=== PATIENT | male | born 1950 | race Caucasian/White ===

== ENCOUNTER 2017-11-01 23:36 | Inpatient (IN) | payer MEDICARE, OTHER ==
[~2017-11-01] VITALS: Ht 172.7 cm; Wt 81.6 kg
[2017-11-01 23:55] VITALS: BP 139/79
[2017-11-02] VITALS (8 sets, daily range): BP systolic 127–158; BP diastolic 76–94
--- NOTE | 2017-11-02 00:22 | Emergency Room Report ---
History of Present Illness General Chief Complaint: Back Pain-No Injury Source: Patient Present Illness HPI Patient presents with complaints of mid back pain patient reports previous injury with fractures of his lower back when he was 20 the [facility] his work[facility] at their facility Patient is here with friend She reports that she so the patient having a seizure activity Prior to arrival patient has had seizures in the past however does not take any medications Currently complains of mid pain Denies any vomiting or diarrhea Denies any abdominal pain denies any focal weakness pain is 8/10 Allergies: Coded Allergies: No Known Allergies (Unverified , 11/01/17) Patient History Past Medical History: see triage record Pertinent Family History: none Reviewed Nursing Documentation: PMH: Agreed, PSxH: Agreed Nursing Documentation-PMH Hx Hypertension: Yes Hx Diabetes: Yes Review of Systems All Other Systems: negative except mentioned in HPI Physical Exam Vital Signs Date Time Temp Pulse Resp B/P (MAP) Pulse Ox O2 Delivery O2 Flow Rate FiO2 11/01/17 23:32 97.0 115 16 139/79 99 Room Air 97.0 Sp02 EP Interpretation: reviewed, normal General Appearance: mild distress - In acute pain Head: normocephalic, atraumatic Eyes: bilateral eye PERRL, bilateral eye EOMI ENT: hearing grossly normal, normal pharynx, TMs + canals normal, uvula midline Neck: full range of motion, supple, no meningismus, no bony tend Respiratory: lungs clear, normal breath sounds, no rhonchi, no respiratory distress, no retraction, no accessory muscle use Cardiovascular #1: normal peripheral pulses, regular rate, rhythm, no edema, no gallop, no JVD, no murmur Gastrointestinal: normal bowel sounds, non tender, soft, no mass, no organomegaly, non-distended, no guarding, no hernia, no pulsatile mass, no rebound Genitourinary: no CVA tenderness Musculoskeletal: other - Tender paraspinal area T6-7-8 Neurologic: oriented x3, responsive, medical record assistant III-XII nml as tested, motor strength/ tone normal, sensory intact Psychiatric: mood/affect normal Skin: normal color, no rash, warm/dry, palpation normal Lymphatic: normal inspection, no adenopathy Medical Decision Making Diagnostic Impression: Primary Impression: multi level thoracic fracture ER Course Patient had multiple differentials upon arrival Patient is a poor historian At this time I obtained history of the patient having a seizure activity prior to arrival however the nurse or the triage did not know at a later time I was told by a nurse at the patient had recent fall onto his back several days ago however I was not told about that during the history In any event the workup has revealed multiple levels of thoracic spine fracture possible chronic however acute is indeterminate Patient reports previous history of lumbar spine fracture however he was not aware of any thoracic spine fractures given the poor history and the findings Given the patient's discomfort he was requested for admission Labs Test 11/02/17 00:30 White Blood Count 10.5 K/UL (4.8-10.8) Red Blood Count 3.88 M/UL (4.70-6.10) Hemoglobin 14.0 G/DL (14.2-18.0) Hematocrit 38.6 % (42.0-52.0) Mean Corpuscular Volume 99 FL (80-99) Mean Corpuscular Hemoglobin 36.0 PG (27.0-31.0) Mean Corpuscular Hemoglobin Concent 36.2 G/DL (32.0-36.0) Red Cell Distribution Width 11.1 % (11.6-14.8) Platelet Count 193 K/UL (150-450) Mean Platelet Volume 6.5 FL (6.5-10.1) Neutrophils (%) (Auto) 80.5 % (45.0-75.0) Lymphocytes (%) (Auto) 12.6 % (20.0-45.0) Monocytes (%) (Auto) 5.0 % (1.0-10.0) Eosinophils (%) (Auto) 0.7 % (0.0-3.0) Basophils (%) (Auto) 1.3 % (0.0-2.0) Sodium Level 133 MMOL/L (136-145) Potassium Level 3.7 MMOL/L (3.5-5.1) Chloride Level 99 MMOL/L (98-107) Carbon Dioxide Level 22 MMOL/L (21-32) Anion Gap 12 mmol/L (5-15) Blood Urea Nitrogen 16 mg/dL (7-18) Creatinine 1.1 MG/DL (0.55-1.30) Estimat Glomerular Filtration Rate > 60 mL/min (>60) Glucose Level 174 MG/DL (74-106) Calcium Level 8.4 MG/DL (8.5-10.1) Total Bilirubin 1.1 MG/DL (0.2-1.0) Direct Bilirubin 0.7 MG/DL (0.0-0.3) Aspartate Amino Transf (AST/SGOT) 247 U/L (15-37) Alanine Aminotransferase (ALT/SGPT) 147 U/L (12-78) Alkaline Phosphatase 93 U/L (46-116) Total Creatine Kinase 247 U/L (26-308) Total Protein 6.7 G/DL (6.4-8.2) Albumin 3.1 G/DL (3.4-5.0) Globulin 3.6 g/dL Albumin/Globulin Ratio 0.9 (1.0-2.7) Lipase 405 U/L (73-393) Rhythm Strip Diag. Results EP Interpretation: yes Rate: 88 Rhythm: NSR, no PVC's, no ectopy CT/MRI/US Diagnostic Results CT/MRI/US Diagnostic Results : Impression CT thoracic spine: Moderate compression T9 and T7 T6-T4 without 25-30% loss of height no significant retropulsion age indeterminate possibly chronic correlated clinically old rib fractures Last Vital Signs Date Time Temp Pulse Resp B/P (MAP) Pulse Ox O2 Delivery O2 Flow Rate FiO2 18 23:32 97.0 115 16 139/79 99 Room Air 97.0 Status: improved Disposition: ADMITTED INPATIENT Condition: Serious Referrals: NON PHYSICIAN (PCP) PARISH VIRGEN D.O. Nov 02, 2017 00:22
[2017-11-02] MEDS ORDERED: Solu-MEDROL 125mg Inj IVP ONE (00:30)
[2017-11-02] MEDS ORDERED: Ketorolac 30mg Inj IV ONE (00:30)
[2017-11-02] MEDS ORDERED: Morphine Sulfate 4mg/ml Inj IVP ONE (00:30)
[2017-11-02 00:51] LABS: BASOPHILS % (AUTO) 1.3 % (0.0-2.0); EOSINOPHILS % (AUTO) 0.7 % (0.0-3.0); HEMATOCRIT 38.6 % (42.0-52.0); LYMPHOCYTES % (AUTO) 12.6 % (20.0-45.0); MEAN CORPUSCULAR VOLUME 99 FL (80-99); NEUTROPHILS % (AUTO) 80.5 % (45.0-75.0); PLATELET COUNT 193 K/UL (150-450); RED BLOOD COUNT 3.88 M/UL (4.70-6.10); RED CELL DISTRIBUTION WIDTH 11.1 % (11.6-14.8); WHITE BLOOD COUNT 10.5 K/UL (4.8-10.8)
[2017-11-02 01:04] LABS: ANION GAP 12 mmol/L (5-15); BLOOD UREA NITROGEN 16 mg/dL (7-18); CALCIUM 8.4 MG/DL (8.5-10.1); CARBON DIOXIDE 22 MMOL/L (21-32); CHLORIDE 99 MMOL/L (98-107); CREATININE 1.1 MG/DL (0.55-1.30); POTASSIUM 3.7 MMOL/L (3.5-5.1); SODIUM 133 MMOL/L (136-145)
[2017-11-02 01:14] LABS: ALANINE AMINOTRANSFERASE 147 U/L (12-78); ALBUMIN 3.1 G/DL (3.4-5.0); ALBUMIN/GLOBULIN RATIO 0.9 (1.0-2.7); ALKALINE PHOSPHATASE 93 U/L (46-116); ASPARTATE AMINO TRANSFERASE 247 U/L (15-37); BILIRUBIN,TOTAL 1.1 MG/DL (0.2-1.0); CREATINE KINASE 247 U/L (26-308)
[2017-11-02 01:58] LABS: BILIRUBIN,DIRECT 0.7 MG/DL (0.0-0.3)
[2017-11-02] MEDS ORDERED: Mylanta II UD 30ml ORAL PRN (05:30)
[2017-11-02] MEDS ORDERED: Morphine Sulfate 4mg/ml Inj IVP PRN (05:30)
[2017-11-02] MEDS ORDERED: Miralax 17gm pkt ORAL PRN (05:30)
[2017-11-02] MEDS ORDERED: LORazepam Inj 2mg/ml 1ml IV PRN (05:30)
[2017-11-02] MEDS ORDERED: Zolpidem 5mg tab ORAL PRN (05:30)
[2017-11-02] MEDS ORDERED: UNOBMED (05:36)
[2017-11-02] MEDS: Morphine Sulfate 2mg/ml Inj IVP PRN ×4 (07:56→23:10)
--- NOTE | 2017-11-02 09:11 | Diagnostic Imaging Report ---
Indication: Back pain. Technique: Continuous helical transaxial imaging of the thoracic spine was obtained from the lung bases to the pubic symphysis. No IV contrast was administered. Coronal 2-D reformats were also obtained. Study obtained in a Siemens sensation [address] Total Dose length Product (DLP): 1495.[address] Dose Index Volume (CTDIvol): 31.62 mGy Comparison: None Findings: The bones are osteopenic. There is loss of height of several of the last lumbar vertebral bodies including T9, T7, T4. Loss of height is around 30%. Alignment is normal. There is no retropulsion. Facets are unremarkable. There are posterior reticular densities, subpleural fibrosis and bleb formation. Dense surgical clip noted in the left upper quadrant of the abdomen. IMPRESSION: Compression fracture deformities as described above. These are probably old. MR is more sensitive for acuity. Interstitial fibrosis. Atherosclerotic disease The CT scanner at [facility] is accredited by the [employer] and the scans are performed using dose optimization techniques as appropriate to a performed exam including Automatic Exposure control.
[2017-11-02] MEDS: Heparin 5000 units/ml inj SUBQ SCH ×2 (09:33→23:03)
[2017-11-02] MEDS: NovoLOG Insulin Flexpen SUBQ SCH ×3 (13:03→23:05)
[2017-11-02] MEDS ORDERED: ASPIR 8181 MG ORAL (13:04)
--- NOTE | 2017-11-02 13:30 | History and Physical ---
History of Present Illness General Date patient seen: Nov 02, 2017 Reason for Hospitalization: Back Pain-No Injury Present Illness HPI 67 year old male presented with complaints of mid back pain. He reports previous injury with fractures of his lower back Prior to arrival patient has had seizures, in the past he had seizures as well , but does not take any medications. Pt is admitted for intractable seizures and back pain. Allergies: Coded Allergies: No Known Allergies (Unverified , 11/01/17) Medication History Scheduled Aripiprazole* (Abilify*), 20 MG ORAL DAILY, (Reported) Aspirin* (Aspir 81*), 81 MG ORAL DAILY, (Reported) Atorvastatin Calcium* (Atorvastatin Calcium*), 40 MG ORAL BEDTIME, (Reported) Cholecalciferol (Vitamin D3)* (Vitamin D*), 1,000 UNIT ORAL DAILY, (Reported) Lisinopril (Lisinopril*), 20 MG ORAL DAILY, (Reported) Metformin Hcl* (Metformin Hcl*), 1,000 MG ORAL DAILY, (Reported) Multivitamins* (Multivitamins*), 1 TAB ORAL DAILY, (Reported) Tamsulosin Hcl (Tamsulosin Hcl*), 0.4 MG ORAL BEDTIME, (Reported) [androgel 1.62 %], 1.62 % TP DAILY, (Reported) Scheduled PRN Loratadine (Loratadine), 10 MG PO DAILY PRN for sneezing, (Reported) Miscellaneous Medications Unable to Obtain Medications (Unable To Obtain Meds), (Reported) Patient History Healthcare decision maker Resuscitation status Advanced Directive on File Past Medical/Surgical History Past Medical/Surgical History: (1) Seizure disorder Review of Systems All Other Systems: negative except mentioned in HPI Physical Exam General Appearance: WD/WN Lines, tubes and drains: peripheral HEENT: normocephalic, atraumatic Neck: non-tender, normal alignment Respiratory/Chest: chest wall non-tender, lungs clear Cardiovascular/Chest: normal peripheral pulses, normal rate Abdomen: normal bowel sounds, non tender Genitourinary/Rectal: normal genital exam, normal rectal exam Extremities: normal range of motion, non-tender Skin Exam: normal pigmentation, cyanotic Neurologic: 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 II-XII grossly normal Last 24 Hour Vital Signs Date Time Temp Pulse Resp B/P (MAP) Pulse Ox O2 Delivery O2 Flow Rate FiO2 11/02/17 12:00 97.1 105 20 158/89 98 97.1 11/02/17 08:00 97.6 106 18 151/94 98 97.6 11/02/17 06:50 97.0 96 20 152/80 95 97.0 11/02/17 06:30 97.0 107 22 144/77 98 Room Air 206.6 11/02/17 05:36 107 22 144/77 98 Room Air 11/02/17 03:49 103 23 146/80 98 Room Air 11/02/17 01:49 104 17 138/76 97 Room Air 11/02/17 00:39 97.0 11/02/17 00:38 97.0 11/01/17 23:55 97.0 115 16 139/79 99 Room Air 97.0 11/01/17 23:32 97.0 115 16 139/79 99 Room Air 97.0 Intake and Output 11/01/17 11/02/17 19:00 07:00 Intake Total 0 ml Output Total 600 ml Balance -600 ml Intake Oral 0 ml Output Urine Total 600 ml Laboratory Tests Test 11/02/17 00:30 White Blood Count 10.5 K/UL (4.8-10.8) Red Blood Count 3.88 M/UL (4.70-6.10) L Hemoglobin 14.0 G/DL (14.2-18.0) L Hematocrit 38.6 % (42.0-52.0) L Mean Corpuscular Volume 99 FL (80-99) Mean Corpuscular Hemoglobin 36.0 PG (27.0-31.0) H Mean Corpuscular Hemoglobin Concent 36.2 G/DL (32.0-36.0) H Red Cell Distribution Width 11.1 % (11.6-14.8) L Platelet Count 193 K/UL (150-450) Mean Platelet Volume 6.5 FL (6.5-10.1) Neutrophils (%) (Auto) 80.5 % (45.0-75.0) H Lymphocytes (%) (Auto) 12.6 % (20.0-45.0) L Monocytes (%) (Auto) 5.0 % (1.0-10.0) Eosinophils (%) (Auto) 0.7 % (0.0-3.0) Basophils (%) (Auto) 1.3 % (0.0-2.0) Sodium Level 133 MMOL/L (136-145) L Potassium Level 3.7 MMOL/L (3.5-5.1) Chloride Level 99 MMOL/L (98-107) Carbon Dioxide Level 22 MMOL/L (21-32) Anion Gap 12 mmol/L (5-15) Blood Urea Nitrogen 16 mg/dL (7-18) Creatinine 1.1 MG/DL (0.55-1.30) Estimat Glomerular Filtration Rate > 60 mL/min (>60) Glucose Level 174 MG/DL (74-106) H Calcium Level 8.4 MG/DL (8.5-10.1) L Total Bilirubin 1.1 MG/DL (0.2-1.0) H Direct Bilirubin 0.7 MG/DL (0.0-0.3) H Aspartate Amino Transf (AST/SGOT) 247 U/L (15-37) H Alanine Aminotransferase (ALT/SGPT) 147 U/L (12-78) H Alkaline Phosphatase 93 U/L (46-116) Total Creatine Kinase 247 U/L (26-308) Total Protein 6.7 G/DL (6.4-8.2) Albumin 3.1 G/DL (3.4-5.0) L Globulin 3.6 g/dL Albumin/Globulin Ratio 0.9 (1.0-2.7) L Lipase 405 U/L (73-393) H Height (Feet): 5 Height (Inches): 8.00 Weight (Pounds): 180 Medications Current Medications Medications (Trade) Dose Ordered Sig/Ceasar Route PRN Reason Start Time Stop Time Status Last Admin Dose Admin Acetaminophen (Tylenol) 650 mg Q4H PRN ORAL fever 11/02/17 05:30 12/02/17 05:29 Al Hydroxide/Mg Hydroxide (Mylanta II) 30 ml Q6H PRN ORAL dyspepsia 11/02/17 05:30 12/02/17 05:29 Dextrose (Dextrose 50%) STAT PRN IV Hypoglycemia 11/02/17 05:30 12/02/17 05:29 Heparin Sodium (Porcine) (Heparin 5000 units/ml) 5,000 units EVERY 12 HOURS SUBQ 11/02/17 09:00 12/02/17 08:59 11/02/17 09:33 Insulin Aspart (NovoLOG) BEFORE MEALS AND HS SUBQ 11/02/17 16:30 12/02/17 16:29 11/02/17 13:03 Lorazepam (Ativan 2mg/ml 1ml) 0.5 mg Q4H PRN IV For Anxiety 11/02/17 05:30 11/09/17 05:29 Morphine Sulfate (Morphine Sulfate) 2 mg Q4H PRN IVP For Pain 4-6 11/02/17 05:30 11/09/17 05:29 11/02/17 11:58 Morphine Sulfate (Morphine Sulfate) 4 mg Q4H PRN IVP For Pain 7-10 11/02/17 05:30 11/09/17 05:29 Ondansetron HCl (Zofran) 4 mg Q6H PRN IVP Nausea & Vomiting 11/02/17 05:30 12/02/17 05:29 Polyethylene Glycol (Miralax) 17 gm HSPRN PRN ORAL Constipation 11/02/17 05:30 12/02/17 05:29 Zolpidem Tartrate (Ambien) 5 mg HSPRN PRN ORAL Insomnia 11/02/17 05:30 11/09/17 05:29 Assessment/Plan Problem List: (1) Seizure disorder ICD Codes: G40.909 - Epilepsy, unspecified, not intractable, without status epilepticus SNOMED: 739028680 (2) Intractable back pain ICD Codes: M54.9 - Dorsalgia, unspecified SNOMED: 796291514 Assessment/Plan neuro evaluation pain management dvt prophylaxis symptomatic treatment. CEDRICK ALVES Nov 02, 2017 13:30
--- NOTE | 2017-11-02 13:55 | Neurology Progress Note ---
Objective Physical Exam Last Vital Signs Date Time Temp Pulse Resp B/P (MAP) Pulse Ox O2 Delivery O2 Flow Rate FiO2 11/02/17 12:00 97.1 105 20 158/89 98 97.1 11/02/17 06:30 Room Air Laboratory Tests Test 11/02/17 00:30 White Blood Count 10.5 K/UL (4.8-10.8) Red Blood Count 3.88 M/UL (4.70-6.10) L Hemoglobin 14.0 G/DL (14.2-18.0) L Hematocrit 38.6 % (42.0-52.0) L Mean Corpuscular Volume 99 FL (80-99) Mean Corpuscular Hemoglobin 36.0 PG (27.0-31.0) H Mean Corpuscular Hemoglobin Concent 36.2 G/DL (32.0-36.0) H Red Cell Distribution Width 11.1 % (11.6-14.8) L Platelet Count 193 K/UL (150-450) Mean Platelet Volume 6.5 FL (6.5-10.1) Neutrophils (%) (Auto) 80.5 % (45.0-75.0) H Lymphocytes (%) (Auto) 12.6 % (20.0-45.0) L Monocytes (%) (Auto) 5.0 % (1.0-10.0) Eosinophils (%) (Auto) 0.7 % (0.0-3.0) Basophils (%) (Auto) 1.3 % (0.0-2.0) Sodium Level 133 MMOL/L (136-145) L Potassium Level 3.7 MMOL/L (3.5-5.1) Chloride Level 99 MMOL/L (98-107) Carbon Dioxide Level 22 MMOL/L (21-32) Anion Gap 12 mmol/L (5-15) Blood Urea Nitrogen 16 mg/dL (7-18) Creatinine 1.1 MG/DL (0.55-1.30) Estimat Glomerular Filtration Rate > 60 mL/min (>60) Glucose Level 174 MG/DL (74-106) H Calcium Level 8.4 MG/DL (8.5-10.1) L Total Bilirubin 1.1 MG/DL (0.2-1.0) H Direct Bilirubin 0.7 MG/DL (0.0-0.3) H Aspartate Amino Transf (AST/SGOT) 247 U/L (15-37) H Alanine Aminotransferase (ALT/SGPT) 147 U/L (12-78) H Alkaline Phosphatase 93 U/L (46-116) Total Creatine Kinase 247 U/L (26-308) Total Protein 6.7 G/DL (6.4-8.2) Albumin 3.1 G/DL (3.4-5.0) L Globulin 3.6 g/dL Albumin/Globulin Ratio 0.9 (1.0-2.7) L Lipase 405 U/L (73-393) H Impression/Recommendations Recommendations #[id number] WILEY CUETO Nov 02, 2017 13:55
[2017-11-02] MEDS ORDERED: VITAMIN D1000 UNI1 ORAL (15:25)
[2017-11-02] MEDS ORDERED: MULTIVITAMINS1 EAC2 ORAL (15:25)
[2017-11-02] MEDS ORDERED: METFORMIN HCL1000 M1 ORAL (15:25)
[2017-11-02] MEDS ORDERED: ABILIFY20 MG ORAL (15:25)
[2017-11-02] MEDS ORDERED: LORATADINE10 M3 PO (15:25)
[2017-11-02] MEDS ORDERED: ATORVASTATIN CA40 MG ORAL (15:25)
[2017-11-02] MEDS ORDERED: TAMSULOSIN HCL0.4 MG ORAL (15:25)
[2017-11-02] MEDS ORDERED: ANDROGEL 1.62% TP (15:25)
[2017-11-02] MEDS ORDERED: LISINOPRIL20 MG ORAL (15:25)
[2017-11-02] MEDS ORDERED: Pseudoephedrine 30mg tab ORAL PRN (15:30)
[2017-11-02] MEDS ORDERED: Benzonatate 100mg Perles ORAL PRN (15:30)
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
[2017-11-02] MEDS ORDERED: Norco 5mg/325mg tab ORAL PRN (18:15)
--- NOTE | 2017-11-02 19:42 | Consultation ---
History of Present Illness General Date patient seen: Nov 02, 2017 Chief Complaint: Present Illness Allergies: Coded Allergies: No Known Allergies (Unverified , 11/01/17) Medication History Scheduled Aripiprazole* (Abilify*), 20 MG ORAL DAILY, (Reported) Aspirin* (Aspir 81*), 81 MG ORAL DAILY, (Reported) Atorvastatin Calcium* (Atorvastatin Calcium*), 40 MG ORAL BEDTIME, (Reported) Cholecalciferol (Vitamin D3)* (Vitamin D*), 1,000 UNIT ORAL DAILY, (Reported) Lisinopril (Lisinopril*), 20 MG ORAL DAILY, (Reported) Metformin Hcl* (Metformin Hcl*), 1,000 MG ORAL DAILY, (Reported) Multivitamins* (Multivitamins*), 1 TAB ORAL DAILY, (Reported) Tamsulosin Hcl (Tamsulosin Hcl*), 0.4 MG ORAL BEDTIME, (Reported) [androgel 1.62 %], 1.62 % TP DAILY, (Reported) Scheduled PRN Loratadine (Loratadine), 10 MG PO DAILY PRN for sneezing, (Reported) Miscellaneous Medications Unable to Obtain Medications (Unable To Obtain Meds), (Reported) Patient History Healthcare decision maker Resuscitation status Advanced Directive on File Physical Exam Last 24 Hour Vital Signs Date Time Temp Pulse Resp B/P (MAP) Pulse Ox O2 Delivery O2 Flow Rate FiO2 11/02/17 17:26 97.6 11/02/17 16:00 97.6 98 18 135/76 98 97.6 11/02/17 12:00 97.1 105 20 158/89 98 97.1 11/02/17 08:00 97.6 106 18 151/94 98 97.6 11/02/17 06:50 97.0 96 20 152/80 95 97.0 11/02/17 06:30 97.0 107 22 144/77 98 Room Air 206.6 11/02/17 05:36 107 22 144/77 98 Room Air 11/02/17 03:49 103 23 146/80 98 Room Air 11/02/17 01:49 104 17 138/76 97 Room Air 11/02/17 00:39 97.0 11/02/17 00:38 97.0 11/01/17 23:55 97.0 115 16 139/79 99 Room Air 97.0 11/01/17 23:32 97.0 115 16 139/79 99 Room Air 97.0 Intake and Output 11/01/17 11/02/17 19:00 07:00 Intake Total 0 ml Output Total 600 ml Balance -600 ml Intake Oral 0 ml Output Urine Total 600 ml Laboratory Tests Test 11/02/17 00:30 White Blood Count 10.5 K/UL (4.8-10.8) Red Blood Count 3.88 M/UL (4.70-6.10) L Hemoglobin 14.0 G/DL (14.2-18.0) L Hematocrit 38.6 % (42.0-52.0) L Mean Corpuscular Volume 99 FL (80-99) Mean Corpuscular Hemoglobin 36.0 PG (27.0-31.0) H Mean Corpuscular Hemoglobin Concent 36.2 G/DL (32.0-36.0) H Red Cell Distribution Width 11.1 % (11.6-14.8) L Platelet Count 193 K/UL (150-450) Mean Platelet Volume 6.5 FL (6.5-10.1) Neutrophils (%) (Auto) 80.5 % (45.0-75.0) H Lymphocytes (%) (Auto) 12.6 % (20.0-45.0) L Monocytes (%) (Auto) 5.0 % (1.0-10.0) Eosinophils (%) (Auto) 0.7 % (0.0-3.0) Basophils (%) (Auto) 1.3 % (0.0-2.0) Sodium Level 133 MMOL/L (136-145) L Potassium Level 3.7 MMOL/L (3.5-5.1) Chloride Level 99 MMOL/L (98-107) Carbon Dioxide Level 22 MMOL/L (21-32) Anion Gap 12 mmol/L (5-15) Blood Urea Nitrogen 16 mg/dL (7-18) Creatinine 1.1 MG/DL (0.55-1.30) Estimat Glomerular Filtration Rate > 60 mL/min (>60) Glucose Level 174 MG/DL (74-106) H Calcium Level 8.4 MG/DL (8.5-10.1) L Total Bilirubin 1.1 MG/DL (0.2-1.0) H Direct Bilirubin 0.7 MG/DL (0.0-0.3) H Aspartate Amino Transf (AST/SGOT) 247 U/L (15-37) H Alanine Aminotransferase (ALT/SGPT) 147 U/L (12-78) H Alkaline Phosphatase 93 U/L (46-116) Total Creatine Kinase 247 U/L (26-308) Total Protein 6.7 G/DL (6.4-8.2) Albumin 3.1 G/DL (3.4-5.0) L Globulin 3.6 g/dL Albumin/Globulin Ratio 0.9 (1.0-2.7) L Lipase 405 U/L (73-393) H Height (Feet): 5 Height (Inches): 8.00 Weight (Pounds): 180 Medications Current Medications Medications (Trade) Dose Ordered Sig/Ceasar Route PRN Reason Start Time Stop Time Status Last Admin Dose Admin Acetaminophen (Tylenol) 650 mg Q4H PRN ORAL fever 11/02/17 05:30 12/02/17 05:29 Acetaminophen/ Hydrocodone Bitart ([place] 5/325) 1 tab Q4H PRN ORAL Moderate Pain (Pain Scale 4-6) 11/02/17 18:15 11/09/17 18:14 Al Hydroxide/Mg Hydroxide (Mylanta II) 30 ml Q6H PRN ORAL dyspepsia 11/02/17 05:30 12/02/17 05:29 Aripiprazole (Abilify) 20 mg DAILY ORAL 11/03/17 09:00 12/03/17 08:59 Aspirin (ASA) 81 mg DAILY ORAL 11/03/17 09:00 12/03/17 08:59 Atorvastatin Calcium (Lipitor) 40 mg BEDTIME ORAL 11/02/17 21:00 12/02/17 20:59 Benzonatate (Tessalon Perles) 100 mg Q8H PRN ORAL cough 11/02/17 15:30 12/02/17 15:29 Dextrose (Dextrose 50%) STAT PRN IV Hypoglycemia 11/02/17 05:30 12/02/17 05:29 Fexofenadine HCl (Carol) 60 mg BIDPRN PRN ORAL seasonal allergies 11/02/17 18:00 12/02/17 17:59 Gabapentin (Neurontin) 300 mg THREE TIMES A DAY ORAL 11/02/17 19:00 12/02/17 18:59 11/02/17 19:10 Heparin Sodium (Porcine) (Heparin 5000 units/ml) 5,000 units EVERY 12 HOURS SUBQ 11/02/17 09:00 12/02/17 08:59 11/02/17 09:33 Insulin Aspart (NovoLOG) BEFORE MEALS AND HS SUBQ 11/02/17 16:30 12/02/17 16:29 11/02/17 16:50 Levetiracetam (Keppra) 500 mg Q12HR ORAL 11/02/17 21:00 12/02/17 20:59 Lidocaine (Lidoderm 5% PATCH) 1 patch DAILY TDERMAL 11/03/17 09:00 12/03/17 08:59 Lisinopril (Prinivil) 20 mg DAILY ORAL 11/03/17 09:00 12/03/17 08:59 Lorazepam (Ativan 2mg/ml 1ml) 0.5 mg Q4H PRN IV For Anxiety 11/02/17 05:30 11/09/17 05:29 Morphine Sulfate (Morphine Sulfate) 2 mg Q4H PRN IVP Severe Pain (Scale 7-10) 11/02/17 18:30 11/09/17 18:29 Multivitamins (Multivitamins) 1 tab DAILY ORAL 11/03/17 09:00 12/03/17 08:59 Ondansetron HCl (Zofran) 4 mg Q6H PRN IVP Nausea & Vomiting 11/02/17 05:30 12/02/17 05:29 Polyethylene Glycol (Miralax) 17 gm HSPRN PRN ORAL Constipation 11/02/17 05:30 12/02/17 05:29 Pseudoephedrine HCl (Sudafed) 60 mg Q6H PRN ORAL congestion 11/02/17 15:30 12/02/17 15:29 Tamsulosin HCl (Flomax) 0.4 mg BEDTIME ORAL 11/02/17 21:00 12/02/17 20:59 Testosterone (Androgel) 1 applic DAILY TOPIC 11/03/17 09:00 12/03/17 08:59 Vitamin D (Vitamin D) 1,000 intlu DAILY ORAL 11/03/17 09:00 12/03/17 08:59 Zolpidem Tartrate (Ambien) 5 mg HSPRN PRN ORAL Insomnia 11/02/17 05:30 11/09/17 05:29 Assessment/Plan Assessment/Plan (1) Intractable back pain (2) Multiple Thoracic compression fractures Seen dictated. VICKI GAFFNEY Nov 02, 2017 19:42
[2017-11-02] MEDS ORDERED: Atorvastatin 20mg tab ORAL SCH (21:00)
[2017-11-02] MEDS ORDERED: Tamsulosin 0.4mg cap ORAL SCH (21:00)
--- NOTE | 2017-11-02 22:00 | Consultation ---
DATE OF CONSULTATION: 11/02/2017 NEUROLOGICAL CONSULTATION CONSULTING PHYSICIAN: Kulwant Samuel M.D. REFERRING PHYSICIAN: Anuj Hinojosa M.D. HISTORY OF PRESENT ILLNESS: This is a 67-year-old male seen in neurological consultation to evaluate recurrent seizures. According to the patient in 2010 after undergoing ophthalmologic assessment he went home where he suddenly lost consciousness and had generalized seizures. He was brought to this facility, in the emergency room diagnosed with seizure event but no anticonvulsant were opted at that time. The patient now indicated that day prior to admission he felt continuously indigestion, felt that he is "food poisoned." He was not being able to sleep well and then next he remember he was awakened up in his bed with paramedics around him apparently. According to his , he had a generalized clonic-tonic seizure episode. He complained of severe dorsal spine pain. He was brought on a stretcher to the emergency room. Blood pressure 139/79 and heart rate of 116. He was fully awake. Diagnostic studies included CT scan of the spine which revealed compression fractures T9, T7, T4 but normal alignment. Evidence of interstitial fibrosis and atherosclerotic disease noted. Laboratory work included mild anemia, hemoglobin 14.0, hematocrit 38.6, elevated MCV and MCH. Chemistry panel was abnormal with AST 247, ALT 147, total bilirubin 1.1. Calcium 8.4. Lipase 405. Sodium 133. Vital signs while admitted remained stable except evidence of sinus tachycardia, rate of 105, blood pressure 152/89. PAST MEDICAL HISTORY: The patient has extensive medical history including [employer] related trauma developing chronic generalized pain. He has a history of obstructive sleep apnea, obesity, bipolar disorder, diabetes type 2, hyperlipidemia, osteoarthritis, severe pain in his knees and hips, recently developed dizzy spells. ALLERGIES: No allergies reported. MEDICATIONS: The patient has long list of treatment including Abilify. He cannot recall of the medicine. Currently since admission he is on subcutaneous heparin, aspirin, insulin, Toradol, lorazepam as needed, Solu-Medrol, morphine for pain management, Zofran, MiraLAX, zolpidem. FAMILY HISTORY: Noncontributory. SOCIAL HISTORY: Lives with his fiancee. 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 No alcohol. No drug abuse. Nonsmoker. REVIEW OF SYSTEMS: Pains and aches in his mid back region, which is new since the fall. He denies headaches, having positional dizziness. No chest pain. No palpitations. No respiratory problems. No abdominal pain or discomfort. No urine or bowel incontinence. PHYSICAL EXAMINATION: GENERAL: A well-developed, moderately obese man, not in acute distress, lying in bed, watching TV. VITAL SIGNS: Stable, with heart rate of 105, blood pressure 151/94, pulse oximetry 98%. HEENT: Head is normocephalic. No evidence of trauma. Eyes, ears, and throat are clear. NECK: Supple. No meningeal signs. MUSCULOSKELETAL: Percussion tenderness in the dorsal spine region. Peripheral pulses 1+ symmetric. MENTAL STATUS: Alert and oriented x3 with no evidence of aphasia or apraxia. Cognitive function normal. CRANIAL NERVE II: Pupils both responding to light and accommodation. Extraocular movements intact. No nystagmus. CRANIAL NERVE V: Normal corneal responses. CRANIAL NERVE VII: No facial asymmetry. CRANIAL NERVE VIII: Normal hearing. CRANIAL NERVE IX THROUGH XII: Within normal limits. MOTOR EXAMINATION: Normal muscle tone. Strength 5/5 in all extremities. No involuntary movement. Deep tendon reflexes 1+ symmetric with downgoing toes on both sides. SENSORY EXAMINATION: Normal to pinprick and light touch. GAIT: Antalgic. IMPRESSION: 1. Recurrent generalized seizure episodes probably representing chronic seizure disorder. 2. Abnormal transaminase. 3. History of obstructive sleep apnea. 4. History of bipolar disorder. 5. Diabetes type 2. 6. Hyperlipidemia. 7. Chronic pain syndrome. RECOMMENDATION: 1. The patient to start on anticonvulsants with Keppra 500 mg b.i.d. (unable to start Depakote due to abnormal transaminase). 2. MRI of the brain without contrast. 3. Electroencephalogram. 4. Gastrointestinal workup for possible hepatitis. Thank you for allowing me to see this interesting patient in neurological consultation. Kulwant Samuel M.D. DR: Hood JOB#: [id number] CC:
[2017-11-03] VITALS: BP 144/81
--- NOTE | 2017-11-03 02:15 | Consultation ---
DATE OF CONSULTATION: 11/02/2017 PAIN MANAGEMENT CONSULTATION CONSULTING PHYSICIAN: Lb Agee M.D. REFERRING PHYSICIAN: Anuj Hinojosa M.D. PHYSICIAN GENERAL II FARMWORKER: KRISTIE Wakefield CHIEF COMPLAINT: Back pain. HISTORY OF PRESENT ILLNESS: This is a 67-year-old male who is being seen on the Med/Surg floor of [facility] for initial comprehensive pain management consultation. The patient was admitted under the care of Dr. Hinojosa due to back pain. Reporting that he has seizures and was found on CT scan of the thoracic spine to have T9, T7, and T4 compression fractures with loss of height about 30%. Complaining of pain in the back, rating it at 8/10 at its worst. Describing the pain as sharp stabbing pain, increasing with movement, and nothing has been helping to the pain except for the morphine 2 mg IV every 4 hours as needed. At this time, we were consulted so that the patient would have adequate pain control while here in the hospital. PAST MEDICAL HISTORY: Seizure disorder, hypertension, and diabetes. PAST SURGICAL HISTORY: Denies. SOCIAL HISTORY: Denies smoking, drinking alcohol, or drug abuse. ALLERGIES: No known drug allergies. MEDICATIONS: Abilify, aspirin, atorvastatin, vitamin D, metformin multivitamin, AndroGel, and loratadine. REVIEW OF SYSTEMS: Denies rash, fever, chills, sweating, dizziness, drowsiness, or change in weight. No shortness of breath or chest pain. No nausea, vomiting, diarrhea, or blood in the stool or urine. No bowel or bladder incontinence. No dysuria. He is complaining of back pain. PHYSICAL EXAMINATION: GENERAL: Alert, awake, oriented x3. VITAL SIGNS: Blood pressure 135/76, heart rate is 98, oxygen saturation 98%, respiratory rate is 18, and temperature is 97.6 degrees Fahrenheit. HEENT: PERRLA. NECK: Range of motion is full in all directions. No tenderness. No adenopathy. LUNGS: Clear. HEART: Regular. ABDOMEN: Benign. BACK: Range of motion is decreased in flexion and extension with tenderness to paraspinal muscles, trapezius, and rhomboid muscles. EXTREMITIES: Upper extremity range of motion is full in all directions. Motor is intact. No cyanosis. No clubbing. No edema. Sensory is intact. No adenopathy. Lower extremity range of motion is full in all directions. Motor is intact. No cyanosis. No clubbing. No edema. Sensory is intact. Reflexes are unobtainable. No adenopathy. ASSESSMENT: This is a 67-year-old male with intractable back pain, multiple thoracic compression fractures. At this time, the patient has been seen by orthopedic surgeon who did not recommend any further imaging. At this time, we will continue morphine 2 mg IV every 4 hours as needed for severe pain. We will start the patient on [place] 5/325 mg every 4 hours as needed for mild pain as well as a Lidoderm patch to be applied to the back at the site of pain 12 hours on and 12 hours off, and Neurontin 300 mg tablets 3 times a day. The patient was discussed with Dr. Agee and Dr. Agee concurred. We will follow the patient. Thank you very much for the courtesy of this consultation. Lb Agee M.D. KRISTIE Wakefield DR: ESTRELLITA JOB#: [id number] CC: JACOB
[2017-11-03] MEDS: Morphine Sulfate 2mg/ml Inj IVP PRN ×4 (03:06→16:17)
[2017-11-03 04:00] VITALS: BP 132/79
[2017-11-03] MEDS: NovoLOG Insulin Flexpen SUBQ SCH ×3 (06:33→17:38)
[2017-11-03 07:15] LABS: HEMATOCRIT 37.9 % (42.0-52.0); HEMOGLOBIN 13.5 G/DL (14.2-18.0); MEAN CORPUSCULAR VOLUME 102 FL (80-99); PLATELET COUNT 187 K/UL (150-450); RED BLOOD COUNT 3.73 M/UL (4.70-6.10); RED CELL DISTRIBUTION WIDTH 11.1 % (11.6-14.8); WHITE BLOOD COUNT 15.4 K/UL (4.8-10.8)
[2017-11-03 08:00] VITALS: BP 128/72
[2017-11-03] MEDS: Heparin 5000 units/ml inj SUBQ SCH (08:07)
[2017-11-03 08:22] LABS: ALANINE AMINOTRANSFERASE 195 U/L (12-78); ALBUMIN/GLOBULIN RATIO 0.8 (1.0-2.7); ALKALINE PHOSPHATASE 95 U/L (46-116); ANION GAP 9 mmol/L (5-15); ASPARTATE AMINO TRANSFERASE 246 U/L (15-37); BILIRUBIN,TOTAL 1.1 MG/DL (0.2-1.0); BLOOD UREA NITROGEN 19 mg/dL (7-18); CARBON DIOXIDE 23 MMOL/L (21-32); CHLORIDE 102 MMOL/L (98-107); CHOLESTEROL 131 MG/DL (< 200); CREATININE 1.5 MG/DL (0.55-1.30); HDL CHOLESTEROL 58 MG/DL (40-60); POTASSIUM 4.2 MMOL/L (3.5-5.1); SODIUM 134 MMOL/L (136-145); TRIGLYCERIDES 152 MG/DL (30-150)
[2017-11-03 08:25] LABS: BILIRUBIN,DIRECT 0.6 MG/DL (0.0-0.3)
--- NOTE | 2017-11-03 08:48 | General Progress Note ---
Assessment/Plan Assessment/Plan (1) Intractable back pain (2) Multiple Thoracic compression fractures Subjective Date patient seen: Nov 03, 2017 Time patient seen: 07:45 - am Allergies: Coded Allergies: No Known Allergies (Unverified , 11/01/17) Subjective REVIEW OF SYSTEMS: Denies rash, fever, chills, sweating, dizziness, drowsiness, or change in weight. No shortness of breath or chest pain. No nausea, vomiting, diarrhea, or blood in the stool or urine. No bowel or bladder incontinence. No dysuria. He is complaining of back pain. 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 Objective Last 24 Hour Vital Signs Date Time Temp Pulse Resp B/P (MAP) Pulse Ox O2 Delivery O2 Flow Rate FiO2 11/03/17 08:05 128/72 11/03/17 08:00 97.5 90 17 128/72 97 Room Air 97.5 92 11/03/17 04:00 97.3 90 19 132/79 97 Room Air 97.3 11/03/17 03:06 97.9 11/03/17 00:00 97.9 93 19 144/81 94 Room Air 97.9 11/02/17 20:00 98.1 90 17 127/79 93 98.1 11/02/17 17:26 97.6 11/02/17 16:00 97.6 98 18 135/76 98 97.6 11/02/17 12:00 97.1 105 20 158/89 98 97.1 Intake and Output 11/02/17 11/03/17 19:00 07:00 Intake Total 400 ml 500 ml Balance 400 ml 500 ml Intake Oral 400 ml 500 ml # Voids 1 # Bowel Movements 2 Laboratory Tests 11/03/17 06:40: White Blood Count 15.4H, Red Blood Count 3.73L, Hemoglobin 13.5L, Hematocrit 37.9L, Mean Corpuscular Volume 102H, Mean Corpuscular Hemoglobin 36.2H, Mean Corpuscular Hemoglobin Concent 35.7, Red Cell Distribution Width 11.1L, Platelet Count 187, Mean Platelet Volume 6.6, Neutrophils (%) (Auto) , Lymphocytes (%) (Auto) , Monocytes (%) (Auto) , Eosinophils (%) (Auto) , Basophils (%) (Auto) , Neutrophils % (Manual) [Pending], Lymphocytes % (Manual) [Pending], Platelet Estimate [Pending], Platelet Morphology [Pending], Sodium Level 134L, Potassium Level 4.2, Chloride Level 102, Carbon Dioxide Level 23, Anion Gap 9, Blood Urea Nitrogen 19H, Creatinine 1.5H, Estimat Glomerular Filtration Rate 47.0, Glucose Level 275#H, Calcium Level 8.0L, Total Bilirubin 1.1H, Direct Bilirubin 0.6H, Aspartate Amino Transf (AST/SGOT) 246H, Alanine Aminotransferase (ALT/SGPT) 195H, Alkaline Phosphatase 95, Ammonia [Pending], Total Protein 6.9, Albumin 3.0L, Globulin 3.9, Albumin/Globulin Ratio 0.8L, Triglycerides Level 152H, Cholesterol Level 131, LDL Cholesterol 42, HDL Cholesterol 58, Cholesterol/HDL Ratio 2.3L, Vitamin B12 Level 848, Thyroid Stimulating Hormone (TSH) 1.339, Hepatitis A IgM Antibody [Pending], Hepatitis B Surface Antigen [Pending], Hepatitis B Core IgM Antibody [Pending], Hepatitis C Antibody [Pending], HIV (1&2) Antibody Rapid Negative Height (Feet): 5 Height (Inches): 8.00 Weight (Pounds): 180 Objective GENERAL: Alert, awake, oriented x3. HEENT: PERRLA. NECK: Range of motion is full in all directions. No tenderness. No adenopathy. LUNGS: Clear. HEART: Regular. ABDOMEN: Benign. BACK: Range of motion is decreased in flexion and extension with tenderness to paraspinal muscles, trapezius, and rhomboid muscles. EXTREMITIES: No cyanosis. No clubbing. No edema. NEURO: No changes. VICKI GAFFNEY Nov 03, 2017 08:48
[2017-11-03] MEDS ORDERED: Lisinopril 20mg tab ORAL SCH (09:00)
[2017-11-03] MEDS ORDERED: ANDROGEL TOPIC SCH (09:00)
[2017-11-03] MEDS ORDERED: ARIPiprazole 10mg tab ORAL SCH (09:00)
[2017-11-03] MEDS ORDERED: Aspirin Baby 81mg ORAL SCH ×2 (09:00)
[2017-11-03] MEDS ORDERED: Vitamin D 1000 IU Tab ORAL SCH (09:00)
[2017-11-03 11:35] VITALS: BP 127/73
--- NOTE | 2017-11-03 12:33 | Neurology Progress Note ---
Interim History Interim History ROS Limited/Unobtainable: No Complaints: back pain Events: stable Objective Physical Exam Last Vital Signs Date Time Temp Pulse Resp B/P (MAP) Pulse Ox O2 Delivery O2 Flow Rate FiO2 11/03/17 11:35 97.4 92 17 127/73 98 Room Air 97.4 Laboratory Tests Test 11/03/17 06:40 White Blood Count 15.4 K/UL (4.8-10.8) H Red Blood Count 3.73 M/UL (4.70-6.10) L Hemoglobin 13.5 G/DL (14.2-18.0) L Hematocrit 37.9 % (42.0-52.0) L Mean Corpuscular Volume 102 FL (80-99) H Mean Corpuscular Hemoglobin 36.2 PG (27.0-31.0) H Mean Corpuscular Hemoglobin Concent 35.7 G/DL (32.0-36.0) Red Cell Distribution Width 11.1 % (11.6-14.8) L Platelet Count 187 K/UL (150-450) Mean Platelet Volume 6.6 FL (6.5-10.1) Neutrophils (%) (Auto) % (45.0-75.0) Lymphocytes (%) (Auto) % (20.0-45.0) Monocytes (%) (Auto) % (1.0-10.0) Eosinophils (%) (Auto) % (0.0-3.0) Basophils (%) (Auto) % (0.0-2.0) Differential Total Cells Counted 100 Neutrophils % (Manual) 90 % (45-75) H Lymphocytes % (Manual) 6 % (20-45) L Monocytes % (Manual) 4 % (1-10) Eosinophils % (Manual) 0 % (0-3) Basophils % (Manual) 0 % (0-2) Band Neutrophils 0 % (0-8) Platelet Estimate Adequate Platelet Morphology Normal Anisocytosis 1+ Macrocytosis 1+ Sodium Level 134 MMOL/L (136-145) L Potassium Level 4.2 MMOL/L (3.5-5.1) Chloride Level 102 MMOL/L (98-107) Carbon Dioxide Level 23 MMOL/L (21-32) Anion Gap 9 mmol/L (5-15) Blood Urea Nitrogen 19 mg/dL (7-18) H Creatinine 1.5 MG/DL (0.55-1.30) H Estimat Glomerular Filtration Rate 47.0 mL/min (>60) Glucose Level 275 MG/DL (74-106) #H Calcium Level 8.0 MG/DL (8.5-10.1) L Total Bilirubin 1.1 MG/DL (0.2-1.0) H Direct Bilirubin 0.6 MG/DL (0.0-0.3) H Aspartate Amino Transf (AST/SGOT) 246 U/L (15-37) H Alanine Aminotransferase (ALT/SGPT) 195 U/L (12-78) H Alkaline Phosphatase 95 U/L (46-116) Ammonia 63 umol/L (11-32) H Total Protein 6.9 G/DL (6.4-8.2) Albumin 3.0 G/DL (3.4-5.0) L Globulin 3.9 g/dL Albumin/Globulin Ratio 0.8 (1.0-2.7) L Triglycerides Level 152 MG/DL (30-150) H Cholesterol Level 131 MG/DL (< 200) LDL Cholesterol 42 mg/dL (<100) HDL Cholesterol 58 MG/DL (40-60) Cholesterol/HDL Ratio 2.3 (3.3-4.4) L Vitamin B12 Level 848 PG/ML (193-986) Thyroid Stimulating Hormone (TSH) 1.339 uiU/mL (0.358-3.740) Hepatitis A IgM Antibody Pending Hepatitis B Surface Antigen Pending Hepatitis B Core IgM Antibody Pending Hepatitis C Antibody Pending HIV (1&2) Antibody Rapid Negative (NEGATIVE) General: well developed, well nourished, no acute distress, other - tender dorsal spine Head: normocophalic, atraumatic Neck: no rigidity Neurologic Exam Mental Status: awake, alert, oriented x4, normal cognition, good mathematical skills, normal recent memory, normal remote memory, preserved visuospatial function Speech: normal speech, no dysarthia Language: normal language, no aphasia Cranial Nerve II: fundus normal, visual swanson, no papilledema Cranial Nerves III, IV, : PERRLA, EOMI, pupils Cranial Nerve V: normal facial sensations, temporales function normal, masseters function normal, pterygoids function normal Cranial Nerve VII: no facial asymmetry, normal facial expressions Cranial Nerve VIII: normal hearing, no nystagmus Cranial Nerve IX: normal palate elevation, gag response Cranial Nerve X: no voice hoarseness Cranial Nerve XI: SCM symmetric, trapezii function normal Cranial Nerve XII: tongue midline, no tongue atrophy/fasciculations Motor System: normal muscle tone, strength 5/5, no involuntary movement, no muscle wasting Sensory: normal pinprick, normal light touch, normal position sense, normal graphesthesia Coordination: normal finger to nose bilaterally, normal heel to flowers bilaterally, negative Romberg test Deep Tendon Reflexes: 1+ bicep (L), 1+ bicep (R), 1+ tricep (L), 1+ tricep (R) , 1+ brachioradialis (L), 1+ brachioradialis (R), 1+ knee (L), 1+ knee (R), 1+ ankle (L), 1+ ankle (R) Reflexes: flexor plantar (L), flexor plantar (R) Stance: normal Gait: stable, normal regular, heel + toe gait Impression/Recommendations Problems: (1) Seizure disorder (2) transaminitis Recommendations #[id number] EEG nl keppra 500mg bid WILEY CUETO Nov 03, 2017 12:33
--- NOTE | 2017-11-03 14:32 | Pulmonology Progress Note ---
Assessment/Plan Problems: (1) Seizure disorder (2) Intractable back pain Assessment/Plan Keppra was started EEG ordered pain management pt/ot all consults reviewed. Subjective ROS Limited/Unobtainable: No Interval Events: comfortable, still c/o of pain, no seizures Allergies: Coded Allergies: No Known Allergies (Unverified , 11/01/17) Objective Last 24 Hour Vital Signs Date Time Temp Pulse Resp B/P (MAP) Pulse Ox O2 Delivery O2 Flow Rate FiO2 11/03/17 11:35 97.4 92 17 127/73 98 Room Air 97.4 11/03/17 08:05 128/72 11/03/17 08:00 97.5 90 17 128/72 97 Room Air 97.5 92 11/03/17 04:00 97.3 90 19 132/79 97 Room Air 97.3 11/03/17 03:06 97.9 11/03/17 00:00 97.9 93 19 144/81 94 Room Air 97.9 11/02/17 20:00 98.1 90 17 127/79 93 98.1 11/02/17 17:26 97.6 11/02/17 16:00 97.6 98 18 135/76 98 97.6 Intake and Output 11/02/17 11/03/17 19:00 07:00 Intake Total 400 ml 500 ml Balance 400 ml 500 ml Intake Oral 400 ml 500 ml # Voids 1 # Bowel Movements 2 General Appearance: WD/WN HEENT: normocephalic, atraumatic Respiratory/Chest: chest wall non-tender, lungs clear, normal breath sounds Cardiovascular: normal peripheral pulses, normal rate, regular rhythm Abdomen: normal bowel sounds, soft, non tender, no organomegaly Genitourinary: normal external genitalia Extremities: no cyanosis Skin: no rash Neurologic/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: 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 normal, no motor/sensory deficits Lymphatic: no neck adenopathy, no groin adenopathy Musculoskeletal: normal muscle bulk Laboratory Tests 11/03/17 06:40: White Blood Count 15.4H, Red Blood Count 3.73L, Hemoglobin 13.5L, Hematocrit 37.9L, Mean Corpuscular Volume 102H, Mean Corpuscular Hemoglobin 36.2H, Mean Corpuscular Hemoglobin Concent 35.7, Red Cell Distribution Width 11.1L, Platelet Count 187, Mean Platelet Volume 6.6, Neutrophils (%) (Auto) , Lymphocytes (%) (Auto) , Monocytes (%) (Auto) , Eosinophils (%) (Auto) , Basophils (%) (Auto) , Differential Total Cells Counted 100, Neutrophils % ( Manual) 90H, Lymphocytes % (Manual) 6L, Monocytes % (Manual) 4, Eosinophils % ( Manual) 0, Basophils % (Manual) 0, Band Neutrophils 0, Platelet Estimate Adequate, Platelet Morphology Normal, Anisocytosis 1+, Macrocytosis 1+, Sodium Level 134L, Potassium Level 4.2, Chloride Level 102, Carbon Dioxide Level 23, Anion Gap 9, Blood Urea Nitrogen 19H, Creatinine 1.5H, Estimat Glomerular Filtration Rate 47.0, Glucose Level 275#H, Calcium Level 8.0L, Total Bilirubin 1.1H, Direct Bilirubin 0.6H, Aspartate Amino Transf (AST/SGOT) 246H, Alanine Aminotransferase (ALT/SGPT) 195H, Alkaline Phosphatase 95, Ammonia 63H, Total Protein 6.9, Albumin 3.0L, Globulin 3.9, Albumin/Globulin Ratio 0.8L, Triglycerides Level 152H, Cholesterol Level 131, LDL Cholesterol 42, HDL Cholesterol 58, Cholesterol/HDL Ratio 2.3L, Vitamin B12 Level 848, Thyroid Stimulating Hormone (TSH) 1.339, Hepatitis A IgM Antibody [Pending], Hepatitis B Surface Antigen [Pending], Hepatitis B Core IgM Antibody [Pending], Hepatitis C Antibody [Pending], HIV (1&2) Antibody Rapid Negative Current Medications Medications (Trade) Dose Ordered Sig/[place] Route PRN Reason Start Time Stop Time Status Last Admin Dose Admin Acetaminophen (Tylenol) 650 mg Q4H PRN ORAL fever 11/02/17 05:30 12/02/17 05:29 Acetaminophen/ Hydrocodone Bitart ([place] 5/325) 1 tab Q4H PRN ORAL Moderate Pain (Pain Scale 4-6) 11/02/17 18:15 11/09/17 18:14 Al Hydroxide/Mg Hydroxide (Mylanta II) 30 ml Q6H PRN ORAL dyspepsia 11/02/17 05:30 12/02/17 05:29 Aripiprazole (Abilify) 20 mg DAILY ORAL 11/03/17 09:00 12/03/17 08:59 11/03/17 09:26 Aspirin (ASA) 81 mg DAILY ORAL 11/03/17 09:00 12/03/17 08:59 11/03/17 08:05 Atorvastatin Calcium (Lipitor) 40 mg BEDTIME ORAL 11/02/17 21:00 12/02/17 20:59 11/02/17 23:00 Benzonatate (Tessalon Perles) 100 mg Q8H PRN ORAL cough 11/02/17 15:30 12/02/17 15:29 Dextrose (Dextrose 50%) STAT PRN IV Hypoglycemia 11/02/17 05:30 12/02/17 05:29 Fexofenadine HCl (Carol) 60 mg BIDPRN PRN ORAL seasonal allergies 11/02/17 18:00 12/02/17 17:59 Gabapentin (Neurontin) 300 mg THREE TIMES A DAY ORAL 11/02/17 19:00 12/02/17 18:59 11/03/17 12:06 Heparin Sodium (Porcine) (Heparin 5000 units/ml) 5,000 units EVERY 12 HOURS SUBQ 11/02/17 09:00 12/02/17 08:59 11/03/17 08:07 Insulin Aspart (NovoLOG) BEFORE MEALS AND HS SUBQ 11/02/17 16:30 12/02/17 16:29 11/03/17 12:06 Levetiracetam (Keppra) 500 mg Q12HR ORAL 11/02/17 21:00 12/02/17 20:59 11/03/17 08:04 Lidocaine (Lidoderm 5% PATCH) 1 patch DAILY TDERMAL 11/03/17 09:00 12/03/17 08:59 11/03/17 08:06 Lisinopril (Prinivil) 20 mg DAILY ORAL 11/03/17 09:00 12/03/17 08:59 11/03/17 08:05 Lorazepam (Ativan 2mg/ml 1ml) 0.5 mg Q4H PRN IV For Anxiety 11/02/17 05:30 11/09/17 05:29 Morphine Sulfate (Morphine Sulfate) 2 mg Q4H PRN IVP Severe Pain (Scale 7-10) 11/02/17 18:30 11/09/17 18:29 11/03/17 12:04 Multivitamins (Multivitamins) 1 tab DAILY ORAL 11/03/17 09:00 12/03/17 08:59 11/03/17 08:05 Ondansetron HCl (Zofran) 4 mg Q6H PRN IVP Nausea & Vomiting 11/02/17 05:30 12/02/17 05:29 Polyethylene Glycol (Miralax) 17 gm HSPRN PRN ORAL Constipation 11/02/17 05:30 12/02/17 05:29 Pseudoephedrine HCl (Sudafed) 60 mg Q6H PRN ORAL congestion 11/02/17 15:30 12/02/17 15:29 Tamsulosin HCl (Flomax) 0.4 mg BEDTIME ORAL 11/02/17 21:00 12/02/17 20:59 11/02/17 22:59 Testosterone (Androgel) 1 applic DAILY TOPIC 11/03/17 09:00 12/03/17 08:59 11/03/17 09:26 Vitamin D (Vitamin D) 1,000 intlu DAILY ORAL 11/03/17 09:00 12/03/17 08:59 11/03/17 08:05 Zolpidem Tartrate (Ambien) 5 mg HSPRN PRN ORAL Insomnia 11/02/17 05:30 11/09/17 05:29 CEDRICK ALVES Nov 03, 2017 14:32
[2017-11-03 16:00] VITALS: BP 141/93
--- NOTE | 2017-11-03 16:54 | Wound Care Consultation ---
Wound Assessment Wound Assessment #1: Wound Number: 1 Wound Present on Admission: Yes New Wound: No Status Change of Wound: No Wound Location Body Site Modif: right, plantar Wound Location Body Site: foot Wound Type: other - fissure with surrounding skin thick yellow callus skin present Garfield Test: Does not Garfield Wound Thickness: Full Thickness Wound Length: 1.0 Wound Width: 1.0 Wound Depth: 0.2 Percent of Wound [place]/Red: 100 Wound Drainage Description: Serosanguineous Wound Drainage Amount: Scant Wound Drainage Odor: None/Absent Tissue Surrounding Wound: Indurated Wound General Appearance: Reddened - wound bed Wound Assessment #2: Wound Number: 2 Wound Present on Admission: Yes New Wound: No Status Change of Wound: No Wound Location Body Site Modif: left, right Wound Location Body Site: knee - lower leg scabs Wound Type: scab - scabs Wound Thickness: Partial Thickness Percent of Wound [place]/Red: 100 - scattered Wound Drainage Amount: None Wound Drainage Odor: None/Absent Tissue Surrounding Wound: Intact Wound General Appearance: Reddened - scabs, Open to air Wound Comment #1 right planter foot fissure surrounding skin with dry flaky callus skin. #2 left and right knee and lower leg scabs recommendation -Local wound care as ordered per protocol -Turn and reposition. -Keep clean and dry. -Optimize nutrition -keep skin clean and dry. -keep right plantar foot clean and dry and covered. -keep skin moisturized apply lotion -Assess and notify MD for any changes of condition to skin ROBERT CODY Nov 03, 2017 16:54
--- NOTE | 2017-11-03 18:15 | Electroencephalogram ---
DATE OF PROCEDURE: 11/02/2017 REFERRING PHYSICIAN: Anuj Hinojosa M.D. READING PHYSICIAN: Kulwant Samuel M.D. PROCEDURE PERFORMED: Electroencephalography. HISTORY: The patient is a 67-year-old man with a history of generalized seizure on admission, currently treated with Keppra, Neurontin, and [place] for pain management. TECHNIQUE: EEG was done using 18 electrodes placed scalp to scalp, scalp to ear montages according to 10/20 International System. During recording, the patient described as awake or drowsy or asleep, but good cooperation, normal mentality. Most wakeful portions of recording, background activity consists of well regulated, somewhat low voltage 8-10 cycles per second alpha activity with good response to physiological stimulation intermittently. Disorganization and slowness in the theta range noted corresponding to sleep stages. Photic stimulation from 3 to 32 hertz was done, result no significant changes. No asymmetry from side to side. No spike or wave activities noted. IMPRESSION: Normal awake stage 1 sleep electroencephalogram with photic stimulation. COMMENT: Absence of paroxysmal event on a single recording does not rule out seizure disorder. Kulwant Samuel M.D. DR: MELIDA JOB#: [id number] CC:
[2017-11-04] MEDS ORDERED: BENZONATATE150 MG PO (00:35)
--- NOTE | 2017-11-04 14:57 | Discharge Summary ---
Discharge Summary Hospital Course Date of Admission Nov 02, 2017 at 05:30 Date of Discharge Nov 03, 2017 at 19:25 Admitting Diagnosis multilevel thoracic fractures HPI Phyllis Almeida is a 67 year old male who was admitted on Nov 02, 2017 at 05:30 for Multilevel Thoracic Fractures Hospital Course [id number] Discharge Discharge Disposition Patient was discharged to Home (01) Discharge Diagnoses: Kathe Zheng NP Nov 04, 2017 14:57
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
== END 2017-11-03 19:25 | disposition left against medical advice (07) | DRG 561 ==
LOC: EDBD 23:36 → EMR 11-02 00:17 → 3E 11-02 05:30 → EDBEDREQ 11-02 05:51
DX: S22.079D Unspecified fracture of T9-T10 vertebra, subsequent encounter for fracture with routine healing (principal); E11.9 Type 2 diabetes mellitus without complications; E78.5 Hyperlipidemia, unspecified; R74.0 Nonspecific elevation of levels of transaminase and lactic acid dehydrogenase [LDH]; G89.4 Chronic pain syndrome; F31.9 Bipolar disorder, unspecified; S22.049D Unspecified fracture of fourth thoracic vertebra, subsequent encounter for fracture with routine healing; S22.069D Unspecified fracture of T7-T8 vertebra, subsequent encounter for fracture with routine healing; G47.33 Obstructive sleep apnea (adult) (pediatric); G40.909 Epilepsy, unspecified, not intractable, without status epilepticus; R23.4 Changes in skin texture; Z79.82 Long term (current) use of aspirin; V89.2XXA Person injured in unspecified motor-vehicle accident, traffic, initial encounter; Y92.410 Unspecified street and highway as the place of occurrence of the external cause; Z53.21 Procedure and treatment not carried out due to patient leaving prior to being seen by health care provider
CPT/HCPCS: 36415; 72128; 80053; 80061; 80299; 82140; 82248; 82550; 82607; 82962; 83690; 84443; 85007; 85025; 86703; 86705; 86709; 86803; 87340; 95819; 99285; J1815; J2405

== ENCOUNTER 2017-11-03 21:56 | Inpatient (IN) | payer MEDICARE, OTHER ==
[~2017-11-03] VITALS: Ht 172.7 cm; Wt 83.9 kg
[~2017-11-03 21:56] MED LIST: ABILIFY20 MG ORAL; ANDROGEL 1.62% TP; ASPIR 8181 MG ORAL; ATORVASTATIN CA40 MG ORAL; LISINOPRIL20 MG ORAL; LORATADINE10 M3 PO; METFORMIN HCL1000 M1 ORAL; MULTIVITAMINS1 EAC2 ORAL; TAMSULOSIN HCL0.4 MG ORAL; UNOBMED; VITAMIN D1000 UNI1 ORAL
[2017-11-03 22:30] VITALS: BP 170/86
[2017-11-03] MEDS ORDERED: Morphine Sulfate 4mg/ml Inj IVP ONE (22:45)
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
[2017-11-04] MEDS ORDERED: BENZONATATE150 MG PO (00:35)
[2017-11-04 00:36] VITALS: BP 138/86
[2017-11-04] MEDS ORDERED: Norco 5mg/325mg tab ORAL PRN (03:15)
[2017-11-04] MEDS ORDERED: Benzonatate 100mg Perles ORAL PRN (03:15)
[2017-11-04] MEDS ORDERED: Pseudoephedrine 30mg tab ORAL PRN (03:15)
[2017-11-04] MEDS ORDERED: LORazepam 0.5mg tab ORAL PRN (03:15)
[2017-11-04] MEDS ORDERED: Zolpidem 5mg tab ORAL PRN (03:15)
[2017-11-04] MEDS ORDERED: Miralax 17gm pkt ORAL PRN (03:15)
[2017-11-04] MEDS ORDERED: Morphine Sulfate 2mg/ml Inj IV PRN (03:15)
[2017-11-04] MEDS: Morphine Sulfate 2mg/ml Inj IVP PRN ×4 (03:35→19:53)
[2017-11-04 04:00] VITALS: BP 132/88
[2017-11-04] MEDS: NovoLOG Insulin Flexpen SUBQ SCH ×4 (06:50→21:37)
[2017-11-04 08:00] VITALS: BP 158/116
--- NOTE | 2017-11-04 08:46 | General Progress Note ---
Assessment/Plan Assessment/Plan (1) Intractable back pain (2) Multiple Thoracic compression fractures Pt to be continued on [place] and Morphine as needed. D/w Dr. Agee. Subjective Date patient seen: Nov 04, 2017 Time patient seen: 07:30 - am Allergies: Coded Allergies: No Known Allergies (Unverified , 11/01/17) Subjective REVIEW OF SYSTEMS: Denies rash, fever, chills, sweating, dizziness, drowsiness, or change in weight. No shortness of breath or chest pain. No nausea, vomiting, diarrhea, or blood in the stool or urine. No bowel or bladder incontinence. No dysuria. He is complaining of back pain. SUBJECTIVE: Patient is walking the floors requesting his morphine due to severe pain. The pain is worse with movement however is reduced on the Morphine and the lidoderm patch will be applied to his back. Objective Last 24 Hour Vital Signs Date Time Temp Pulse Resp B/P (MAP) Pulse Ox O2 Delivery O2 Flow Rate FiO2 11/04/17 04:00 98.9 101 18 132/88 98 Room Air 98.9 11/04/17 00:45 99.3 112 18 138/86 99 Room Air 99.3 11/04/17 00:36 99.3 112 18 138/86 99 Room Air 99.3 11/03/17 22:55 99.4 11/03/17 22:30 99.3 121 18 170/86 99 Room Air 99.3 11/03/17 22:10 99.4 121 18 170/86 99 Room Air 99.3 Intake and Output 11/03/17 11/04/17 19:00 07:00 Intake Total 240 ml Balance 240 ml Intake Oral 240 ml # Voids 2 Height (Feet): 5 Height (Inches): 8.00 Weight (Pounds): 185 Objective GENERAL: Alert, awake, oriented x3. HEENT: PERRLA. NECK: Range of motion is full in all directions. No tenderness. No adenopathy. LUNGS: Clear. HEART: Regular. ABDOMEN: Benign. BACK: Range of motion is decreased in flexion and extension with tenderness to paraspinal muscles, trapezius, and rhomboid muscles. EXTREMITIES: No cyanosis. No clubbing. No edema. NEURO: No changes. VICKI GAFFNEY Nov 04, 2017 08:45
[2017-11-04] MEDS: Aspirin EC 81mg tab ORAL SCH (08:59)
[2017-11-04] MEDS: Vitamin D 1000 IU Tab ORAL SCH (08:59)
[2017-11-04] MEDS ORDERED: levETIRAcetam 500mg/NS100ml 100 ML IVPB ONE (09:00)
[2017-11-04] MEDS: Heparin 5000 units/ml inj SUBQ SCH ×2 (09:00→21:32)
[2017-11-04] MEDS: Lisinopril 20mg tab ORAL SCH (09:00)
[2017-11-04] MEDS ORDERED: levETIRAcetam 500mg/NS100ml 100 ML IVPB SCH (09:00)
[2017-11-04] MEDS ORDERED: Heparin 5000 units/ml inj SUBQ SCH (09:00)
[2017-11-04] MEDS ORDERED: Vitamin D 1000 IU Tab ORAL SCH (09:00)
[2017-11-04] MEDS ORDERED: ARIPiprazole 10mg tab ORAL SCH (09:00)
--- NOTE | 2017-11-04 10:11 | Wound Care Consultation ---
Wound Assessment Wound Assessment : Wound Number: 1 Wound Present on Admission: Yes New Wound: No Status Change of Wound: No Wound Location Body Site Modif: right, plantar Wound Location Body Site: foot Wound Type: other - fissure with thick callus present to surrounding skin Garfield Test: Does not Garfield Wound Thickness: Full Thickness Wound Length: 1.0 Wound Width: 1.0 Wound Depth: 0.2 Percent of Wound [place]/Red: 100 Wound Drainage Description: Serosanguineous Wound Drainage Amount: Scant Wound Drainage Odor: None/Absent Tissue Surrounding Wound: Indurated Wound General Appearance: Reddened Wound Comment #1 right planter foot fissure surrounding skin with dry flaky callus skin. #2 left and right knee and lower leg scabs-keep clean and dry. Assess right planter foot , notify and follow up with MD and podiatry if wound has change of condition/deterioration. made patient aware of offloading affected right planter site, explained risks and benefits, states " i work standing up for 50 hours", however noted patient walking standing recommendation -Local wound care as ordered per protocol -Turn and reposition. -Keep clean and dry. -Optimize nutrition -keep skin clean and dry. -keep right plantar foot clean and dry and covered. -keep skin moisturized apply lotion -Assess and notify MD for any changes of condition to skin ROBERT CODY Nov 04, 2017 10:11
[2017-11-04 12:00] VITALS: BP 130/88
--- NOTE | 2017-11-04 12:24 | Diagnostic Imaging Report ---
Indication: Altered mental status. Seizure Technique: The head was imaged in a 1.5 Charlene magnet. Sequences obtained include sagittal and axial T1 FLAIR, axial T2 fast spin echo with fat saturation, axial T2 FLAIR, diffusion and ADC map. Comparison: None Findings: There is moderate prominence of the sulci, ventricles, and basal cisterns consistent with atrophy. Minimal, nonspecific T2 hyperintensity noted within white matter. This may be due to chronic small vessel disease. There is no restricted diffusion. Greenwood-white differentiation is normal. There is no mass effect, midline shift, edema, or hemorrhage. There are no abnormal extra-axial or intra-axial fluid collections. The corpus callosum and sella are unremarkable. The brainstem and cerebellum are unremarkable. Bone marrow signal within the visualized osseous structures appears age appropriate and unremarkable otherwise. Impression: No acute intracranial findings. Moderate atrophy of the brain.
[2017-11-04 16:00] VITALS: BP 138/85
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
--- NOTE | 2017-11-04 19:02 | Consultation ---
History of Present Illness General Date patient seen: Nov 04, 2017 Chief Complaint: Back Injury Present Illness HPI 67-year-old male with hx of bipolar d/o who was recently admitted for multiple compression fracture and intractable back pain and questionable seizure. He left the hospital ama and stated that while he was there he was not taking Abilify as it was not prescribed.the pt was irritable and hostile. the pt was uncooperative with exam and stated that he has been on abilify for a long time Allergies: Coded Allergies: No Known Allergies (Unverified , 11/01/17) Medication History Scheduled Aripiprazole* (Abilify*), 20 MG ORAL DAILY, (Reported) Aspirin* (Aspir 81*), 81 MG ORAL DAILY, (Reported) Atorvastatin Calcium* (Atorvastatin Calcium*), 40 MG ORAL BEDTIME, (Reported) Cholecalciferol (Vitamin D3)* (Vitamin D*), 1,000 UNIT ORAL DAILY, (Reported) Lisinopril (Lisinopril*), 20 MG ORAL DAILY, (Reported) Metformin Hcl* (Metformin Hcl*), 1,000 MG ORAL DAILY, (Reported) Multivitamins* (Multivitamins*), 1 TAB ORAL DAILY, (Reported) Tamsulosin Hcl (Tamsulosin Hcl*), 0.4 MG ORAL BEDTIME, (Reported) [androgel 1.62 %], 1.62 % TP DAILY, (Reported) Scheduled PRN Loratadine (Loratadine), 10 MG PO DAILY PRN for sneezing, (Reported) Miscellaneous Medications Benzonatate (Benzonatate), 100 MG PO, (Reported) Unable to Obtain Medications (Unable To Obtain Meds), (Reported) Patient History Limited by: medical condition History Provided By: Patient, Medical Record, PMD Healthcare decision maker Resuscitation status Full Code Advanced Directive on File Past Medical/Surgical History Past Medical/Surgical History: (1) transaminitis (2) Seizure disorder (3) Compression fracture of body of thoracic vertebra (4) Intractable back pain Review of Systems Psychiatric: Reports: prior hx, anxiety, depressed feelings, emotional problems Physical Exam General Appearance: no apparent distress, alert Neurologic: oriented x 3, responsive, depressed affect Last 24 Hour Vital Signs Date Time Temp Pulse Resp B/P (MAP) Pulse Ox O2 Delivery O2 Flow Rate FiO2 11/04/17 16:00 97.0 98 18 138/85 96 97.0 11/04/17 12:00 97.0 98 18 130/88 98 Room Air 97.0 11/04/17 09:00 132/88 11/04/17 08:00 98.2 98 19 158/116 96 Room Air 98.2 11/04/17 04:00 98.9 101 18 132/88 98 Room Air 98.9 11/04/17 00:45 99.3 112 18 138/86 99 Room Air 99.3 11/04/17 00:36 99.3 112 18 138/86 99 Room Air 99.3 11/03/17 22:55 99.4 11/03/17 22:30 99.3 121 18 170/86 99 Room Air 99.3 11/03/17 22:10 99.4 121 18 170/86 99 Room Air 99.3 Intake and Output 11/03/17 11/04/17 19:00 07:00 Intake Total 240 ml Balance 240 ml Intake Oral 240 ml # Voids 2 Laboratory Tests Test 11/04/17 12:10 Hemoglobin A1c 7.4 % (4.3-6.0) H Height (Feet): 5 Height (Inches): 8.00 Weight (Pounds): 185 Medications Current Medications Medications (Trade) Dose Ordered Sig/Ceasar Route PRN Reason Start Time Stop Time Status Last Admin Dose Admin Acetaminophen (Tylenol) 650 mg Q4H PRN ORAL Mild Pain/Temp > 100.5 11/04/17 03:15 12/04/17 03:14 Acetaminophen/ Hydrocodone Bitart ([place] 5/325) 1 tab Q4H PRN ORAL Moderate Pain (Pain Scale 4-6) 11/04/17 03:15 11/11/17 03:14 Al Hydroxide/Mg Hydroxide (Mylanta) 30 ml Q6H PRN ORAL DYSPEPSIA 11/04/17 03:15 12/04/17 03:14 Aripiprazole (Abilify) 20 mg DAILY ORAL 11/04/17 09:00 12/04/17 08:59 11/04/17 09:00 Aspirin (Ecotrin) 81 mg DAILY ORAL 11/04/17 09:00 12/04/17 08:59 11/04/17 08:59 Atorvastatin Calcium (Lipitor) 40 mg BEDTIME ORAL 11/04/17 21:00 12/04/17 20:59 Benzonatate (Tessalon Perles) 100 mg Q8H PRN ORAL For Cough 11/04/17 03:15 12/04/17 03:14 Dextrose (Dextrose 50%) STAT PRN IV Hypoglycemia 11/04/17 03:15 12/04/17 03:14 Fexofenadine HCl (Carol) 60 mg TWICE A DAY ORAL 11/04/17 09:00 12/04/17 08:59 11/04/17 17:29 Fexofenadine HCl (Carol) 60 mg TWICE A DAY PRN ORAL SEASONAL ALLERGIES 11/04/17 03:15 12/04/17 03:14 Gabapentin (Neurontin) 300 mg THREE TIMES A DAY ORAL 11/04/17 09:00 12/04/17 08:59 11/04/17 17:29 Heparin Sodium (Porcine) (Heparin 5000 units/ml) 5,000 units EVERY 12 HOURS SUBQ 11/04/17 09:00 12/04/17 08:59 Insulin Aspart (NovoLOG) BEFORE MEALS AND HS SUBQ 11/04/17 06:30 12/04/17 06:29 11/04/17 06:50 Levetiracetam (Keppra) 500 mg Q12HR ORAL 11/04/17 09:00 12/04/17 08:59 11/04/17 09:00 Lidocaine (Lidoderm 5% PATCH) 1 patch DAILY TDERMAL 11/04/17 09:00 12/04/17 08:59 11/04/17 09:00 Lisinopril (Prinivil) 20 mg DAILY ORAL 11/04/17 09:00 12/04/17 08:59 11/04/17 09:00 Lorazepam (Ativan) 0.5 mg Q4H PRN ORAL For Anxiety 11/04/17 03:15 11/11/17 03:14 Morphine Sulfate (Morphine Sulfate) 2 mg Q4H PRN IVP Severe Pain (Pain Scale 7-10) 11/04/17 03:00 11/11/17 02:59 11/04/17 14:41 Multivitamins (Multivitamins) 1 tab DAILY ORAL 11/04/17 09:00 12/04/17 08:59 11/04/17 08:59 Ondansetron HCl (Zofran) 4 mg Q6H PRN IVP Nausea & Vomiting 11/04/17 03:15 12/04/17 03:14 Polyethylene Glycol (Miralax) 17 gm DAILY PRN ORAL Constipation 11/04/17 03:15 12/04/17 03:14 Pseudoephedrine HCl (Sudafed) 60 mg Q6H PRN ORAL CONGESTION 11/04/17 03:15 12/04/17 03:14 Tamsulosin HCl (Flomax) 0.4 mg BEDTIME ORAL 11/04/17 21:00 12/04/17 20:59 Vitamin D (Vitamin D) 1,000 intlu DAILY ORAL 11/04/17 09:00 12/04/17 08:59 11/04/17 08:59 Zolpidem Tartrate (Ambien) 5 mg HSPRN PRN ORAL Insomnia 11/04/17 03:15 11/11/17 03:14 Assessment/Plan Status: stable Assessment/Plan bipolar d/o -abilify 20mg qam -provided terrance/Yoly Whitt M.D. Nov 04, 2017 19:02
[2017-11-04 20:00] VITALS: BP 150/92
[2017-11-04] MEDS ORDERED: Atorvastatin 80mg tab ORAL SCH (21:00)
[2017-11-04] MEDS ORDERED: Tamsulosin 0.4mg cap ORAL SCH ×2 (21:00)
[2017-11-05] VITALS: BP 152/82
[2017-11-05] MEDS: Morphine Sulfate 2mg/ml Inj IVP PRN ×3 (01:46→10:32)
[2017-11-05 04:00] VITALS: BP 145/89
[2017-11-05] MEDS: NovoLOG Insulin Flexpen SUBQ SCH ×2 (06:04→12:06)
[2017-11-05 08:00] VITALS: BP 167/81
[2017-11-05] MEDS: Heparin 5000 units/ml inj SUBQ SCH (09:00)
[2017-11-05] MEDS ORDERED: ARIPiprazole 10mg tab ORAL SCH (09:00)
[2017-11-05] MEDS: Vitamin D 1000 IU Tab ORAL SCH (09:13)
[2017-11-05] MEDS: Aspirin EC 81mg tab ORAL SCH (09:13)
[2017-11-05] MEDS: Lisinopril 20mg tab ORAL SCH (09:13)
--- NOTE | 2017-11-05 09:44 | General Progress Note ---
Assessment/Plan Assessment/Plan (1) Intractable back pain (2) Multiple Thoracic compression fractures Pt to be continued on [place] and Morphine as needed. A Rx for Tylenol #3 PO 1 tab Q4-6H PRN 15 tabs was written for patient in anticipation for discharge. D/w Dr. Agee and he concurred. Subjective Date patient seen: Nov 05, 2017 Time patient seen: 09:15 - am Allergies: Coded Allergies: No Known Allergies (Unverified , 11/01/17) Subjective REVIEW OF SYSTEMS: Denies rash, fever, chills, sweating, dizziness, drowsiness, or change in weight. No shortness of breath or chest pain. No nausea, vomiting, diarrhea, or blood in the stool or urine. No bowel or bladder incontinence. No dysuria. He is complaining of back pain. SUBJECTIVE: Patient is sitting in chair c/o pain in his back which he says is severe. Showing no signs of pain or distress at this time. Objective Last 24 Hour Vital Signs Date Time Temp Pulse Resp B/P (MAP) Pulse Ox O2 Delivery O2 Flow Rate FiO2 11/05/17 09:13 167/81 11/05/17 08:00 98.1 90 18 167/81 97 Room Air 98.1 11/05/17 04:00 105 19 145/89 94 Room Air 11/05/17 00:00 98.0 96 19 152/82 95 98.0 11/04/17 20:00 98.1 89 19 150/92 95 Room Air 98.1 11/04/17 16:00 97.0 98 18 138/85 96 97.0 11/04/17 12:00 97.0 98 18 130/88 98 Room Air 97.0 Intake and Output 11/04/17 11/05/17 19:00 07:00 Intake Total 450 ml Balance 450 ml Intake Oral 450 ml # Voids 2 Laboratory Tests 11/04/17 12:10: Hemoglobin A1c 7.4H Height (Feet): 5 Height (Inches): 8.00 Weight (Pounds): 185 Objective GENERAL: Alert, awake, oriented x3. HEENT: PERRLA. NECK: Range of motion is full in all directions. No tenderness. No adenopathy. LUNGS: Clear. HEART: Regular. ABDOMEN: Benign. BACK: Range of motion is decreased in flexion and extension with tenderness to paraspinal muscles, trapezius, and rhomboid muscles. EXTREMITIES: No cyanosis. No clubbing. No edema. NEURO: No changes. VICKI GAFFNEY Nov 05, 2017 09:44
[2017-11-05 12:00] VITALS: BP 152/74
[2017-11-05] MEDS ORDERED: ACETAMINOPHEN-1 EAC1 ORAL ×2 (15:25→15:26)
--- NOTE | 2017-11-05 20:19 | General Progress Note ---
Assessment/Plan Status: stable Assessment/Plan bipolar abilify 20mg q daily Subjective Date patient seen: Nov 05, 2017 Neurologic/Psychiatric: Reports: anxiety, depressed, emotional problems Allergies: Coded Allergies: No Known Allergies (Unverified , 11/01/17) Objective Last 24 Hour Vital Signs Date Time Temp Pulse Resp B/P (MAP) Pulse Ox O2 Delivery O2 Flow Rate FiO2 11/05/17 12:00 98.7 94 19 152/74 97 Room Air 98.7 11/05/17 09:13 167/81 11/05/17 08:00 98.1 90 18 167/81 97 Room Air 98.1 11/05/17 04:00 105 19 145/89 94 Room Air 11/05/17 00:00 98.0 96 19 152/82 95 98.0 Intake and Output 11/04/17 11/05/17 19:00 07:00 Intake Total 450 ml Balance 450 ml Intake Oral 450 ml # Voids 2 Height (Feet): 5 Height (Inches): 8.00 Weight (Pounds): 185 General Appearance: no apparent distress, alert Neurologic: alert, oriented x 3, responsive, depressed affect Yoly Johnson M.D. Nov 05, 2017 20:19
--- NOTE | 2017-11-08 08:10 | Discharge Summary ---
Discharge Summary Hospital Course Date of Admission Nov 03, 2017 at 23:26 Date of Discharge Nov 05, 2017 at 16:50 Admitting Diagnosis intractable back pain. compression frx HPI Irwin C Elle is a 67 year old male who was admitted on Nov 03, 2017 at 23:26 for Intractable Back Pain, Compression Fracture Hospital Course dc summary #[id number] Discharge Medications Continued Medications: Acetaminophen With Codeine (T#3) (Tylenol #3 Tab*) Y Tab 1 TAB ORAL EVERY 6 HOURS PRN for For Pain, #30 TAB Aripiprazole* (Abilify*) 20 Mg Tablet 20 MG ORAL DAILY, TAB Aspirin* (Aspir 81*) 81 Mg Tablet.dr 81 MG ORAL DAILY, TAB Benzonatate (Benzonatate) 150 Mg Capsule 100 MG PO, CAP Cholecalciferol (Vitamin D3)* (Vitamin D*) 1,000 Unit Tablet 1000 UNIT ORAL DAILY, #30 TAB Lisinopril (Lisinopril*) 20 Mg Tablet 20 MG ORAL DAILY, TAB Loratadine (Loratadine) 10 Mg Capsule 10 MG PO DAILY PRN for sneezing, CAP Metformin Hcl* (Metformin Hcl*) 1,000 Mg Tablet 1000 MG ORAL DAILY, TAB Tamsulosin Hcl (Tamsulosin Hcl*) 0.4 Mg Cap.er.24h 0.4 MG ORAL BEDTIME, CAP Unable to Obtain Medications (Unable To Obtain Meds) 1 Ea Ea [androgel 1.62 %] () 1.62 % TP DAILY Discharge Discharge Disposition Patient was discharged to Home (01) Discharge Diagnoses: Discharge Instructions Discharge Instructions Special Instructions I have been assigned to complete a D/C Summary on this account. I was not involved in the patient management Lupe Mccauley NP ([place]te[place]) Nov 08, 2017 08:10
--- NOTE | 2017-11-08 23:45 | Discharge Summary 2 SIG ---
DATE OF ADMISSION: 11/03/2017 DATE OF DISCHARGE: 11/05/2017 REASON FOR ADMISSION: 67-year-old male was recently hospitalized for multiple thoracic compression fractures, intractable back pain as well as questionable seizure. At that time, he was admitted to the hospital, had a negative EEG, seen by neurologist, and was placed on Keppra twice a day. However, he left AMA because of issue with his girlfriend and security. The patient never signed the form. He was taken out of census subsequently because he left against medical advice. He presented to emergency room complaining of back pain and inability to walk. The patient had a history of opiate dependency, but stated he did not take them for 10 years. No focal deficits. No seizure activity. Workup revealed tachycardia -121 and blood pressure- 170/86. He complained of pain 03/08. Because of the inability to ambulate and for pain management, the patient was admitted. ADMITTING DIAGNOSES: 1. Intractable back pain. 2. Compression fracture of body of thoracic vertebrae. 3. Seizure disorder. HOSPITAL COURSE: The patient was admitted to Medical/Surgical Floor. Pain specialist consulted. Pain management provided as per pain specialist recommendation. Pain was addressed and controlled. The patient was on seizure precaution. Keppra restarted. No evidence of seizure activity. The patient was working with Physical and Occupational Therapists. Fall precautions were maintained. Prior to discharge, Physical Therapy stated that the patient was ambulated in the room and the hallways independently and did not need help for ambulation. Physical Therapy recommended discontinue physical therapy and return to prior location. No further needs were identified. Psychiatrist seen and evaluated the patient, diagnosed the patient with bipolar disorder, and started the patient on Abilify. Reality orientation and therapeutic interventions were provided. While in the hospital, DVT and GI prophylaxis were provided. Home medications were resumed. Blood pressure normalized. The patient was stable for discharge. FINAL DIAGNOSES: 1. Intractable back pain. 2. Compression fractures of body of thoracic vertebrae, multiple. 3. Seizure disorder. 4. Bipolar disorder. DISCHARGE MEDICATIONS: See medication reconciliation list. DISCHARGE INSTRUCTIONS: The patient discharged home. Follow up with the primary care provider. Anuj Hinojosa M.D. I have been assigned to dictate discharge summary on this account and I was not involved in the patient's management. Lupe Mckeonnabor NMitziPMitzi DR: Reed JOB#: [id number] CC: JACOB
== END 2017-11-05 16:50 | disposition home or self-care (01) | DRG 561 ==
LOC: EMR 22:26 → 4E 23:26 → EDBEDREQ 23:30
DX: M48.54XD Collapsed vertebra, not elsewhere classified, thoracic region, subsequent encounter for fracture with routine healing (principal); F31.9 Bipolar disorder, unspecified; G40.909 Epilepsy, unspecified, not intractable, without status epilepticus; M54.6 Pain in thoracic spine
CPT/HCPCS: 36415; 70551; 80299; 82962; 83036; 87081; 99285; J1815

== ENCOUNTER 2017-11-08 20:25 | Inpatient (IN) | payer MEDICARE, OTHER ==
[~2017-11-08] VITALS: Ht 172.7 cm; Wt 83.9 kg
[~2017-11-08 20:25] MED LIST changes: +ACETAMINOPHEN-1 EAC1 ORAL; +BENZONATATE150 MG PO
[2017-11-08 20:30] VITALS: BP 99/52
[2017-11-08 22:10] VITALS: BP 95/56
--- NOTE | 2017-11-08 23:22 | Emergency Room Report ---
History of Present Illness General Chief Complaint: Dizziness Source: Patient, Medical Record, EMS Present Illness HPI This is a 67-year-old male who was recently discharged from the hospital for intractable back pain secondary to compression fracture. He came in today with chief complaint of dizziness and GI bleeding. He has a history of duodenal bleed 10 years ago. He said he is complaining of epigastric pain and had several bowel movement that is bloody in nature. Started around 2 PM today. He had 4 episode home and one episode here in triage. [place] weak and dizzy. No nausea no vomiting. Allergies: Coded Allergies: No Known Allergies (Unverified , 11/01/17) Patient History Past Medical History: see triage record, old chart reviewed Past Surgical History: other Pertinent Family History: none Social History: Denies: smoking Immunizations: other Reviewed Nursing Documentation: PMH: Agreed, PSxH: Agreed Nursing Documentation-PMH Past Medical History: No History, Except For Hx Cardiac Problems: Yes Hx Hypertension: Yes Hx Diabetes: Yes Hx Cancer: No Hx Gastrointestinal Problems: Yes - duodenal ulcer Hx Seizures: Yes Hx Head Trauma: No Hx Traumatic Brain Injury: Yes Review of Systems Constitutional: Reports: weakness Eye: Denies: eye pain, blurred vision ENT: Denies: ear pain, nose congestion, throat swelling Respiratory: Denies: cough, shortness of breath Cardiovascular: Denies: chest pain, palpitations Gastrointestinal: Reports: abdominal pain, Denies: diarrhea, nausea, vomiting Musculoskeletal: Denies: back pain, joint pain Skin: Denies: rash Neurological: Denies: headache, numbness Endocrine: Denies: increased thirst, increased urine Hematologic/Lymphatic: Denies: easy bruising All Other Systems: negative except mentioned in HPI Physical Exam Vital Signs Date Time Temp Pulse Resp B/P (MAP) Pulse Ox O2 Delivery O2 Flow Rate FiO2 11/08/17 20:15 97.6 109 16 96/64 98 Room Air 97.5 vitals with mild hypotension Sp02 EP Interpretation: reviewed, normal General Appearance: well appearing, no apparent distress, alert Head: normocephalic, atraumatic Eyes: bilateral eye PERRL, bilateral eye EOMI ENT: hearing grossly normal, normal pharynx Neck: full range of motion, supple, no meningismus Respiratory: chest non-tender, lungs clear, normal breath sounds Cardiovascular #1: regular rate, rhythm, no murmur Gastrointestinal: normal bowel sounds, no mass, no organomegaly, no bruit, non- distended, tenderness - mild epigastric Musculoskeletal: back normal, normal range of motion Neurologic: alert, oriented x3 Psychiatric: mood/affect normal Skin: warm/dry Medical Decision Making Diagnostic Impression: Primary Impression: GI bleed Qualified Codes: K92.2 - Gastrointestinal hemorrhage, unspecified ER Course Patient presents with a GI bleeding. Probably upper GI since it was dark. Hemoglobin stable. Blood pressure stable. We'll admit for serial H&H and possible endoscopy. I discussed the case with Dr. Hinojosa who will admit. His elevated white count is probably stress response. Lab Results Impression labs with elevated Wbc EKG Diagnostic Results Rate: normal, tachycardiac Rhythm: NSR ST Segments: no acute changes Rhythm Strip Diag. Results Rhythm Strip Time: 00:39 EP Interpretation: yes Rate: 104 Rhythm: NSR, no PVC's, no ectopy Chest X-Ray Diagnostic Results Chest X-Ray Diagnostic Results : Chest X-Ray Ordered: Yes # of Views/Limited/Complete: 1 View Indication: Chest Pain EP Interpretation: Yes Interpretation: no consolidation, no effusion, no pneumothorax, no acute cardiopulmonary disease Impression: No acute disease Electronically Signed by: Shay Melton MD Last Vital Signs Date Time Temp Pulse Resp B/P (MAP) Pulse Ox O2 Delivery O2 Flow Rate FiO2 11/08/17 20:15 97.6 109 16 96/64 98 Room Air 97.5 Status: improved Disposition: ADMITTED INPATIENT Condition: Serious Referrals: NOT CHOSEN DANIELLA/,REFERRING (PCP) SHAY MELTON M.D. Nov 08, 2017 23:22
[2017-11-08] MEDS ORDERED: Pantoprazole Inj IVP ONE (23:30)
[2017-11-09 00:05] VITALS: BP 97/64
[2017-11-09] MEDS ORDERED: Pantoprazole Inj ONE (00:30)
[2017-11-09 00:35] LABS: BASOPHILS % (AUTO) 0.8 % (0.0-2.0); EOSINOPHILS % (AUTO) 0.2 % (0.0-3.0); HEMATOCRIT 32.9 % (42.0-52.0); LYMPHOCYTES % (AUTO) 11.2 % (20.0-45.0); MEAN CORPUSCULAR VOLUME 99 FL (80-99); MONOCYTES % (AUTO) 5.7 % (1.0-10.0); NEUTROPHILS % (AUTO) 82.1 % (45.0-75.0); PLATELET COUNT 208 K/UL (150-450); RED BLOOD COUNT 3.31 M/UL (4.70-6.10); RED CELL DISTRIBUTION WIDTH 10.8 % (11.6-14.8); WHITE BLOOD COUNT 17.7 K/UL (4.8-10.8)
[2017-11-09 00:57] LABS: ANION GAP 14 mmol/L (5-15); BLOOD UREA NITROGEN 44 mg/dL (7-18); CALCIUM 8.7 MG/DL (8.5-10.1); CARBON DIOXIDE 20 MMOL/L (21-32); CHLORIDE 101 MMOL/L (98-107); CREATININE 1.4 MG/DL (0.55-1.30); POTASSIUM 4.4 MMOL/L (3.5-5.1); SODIUM 135 MMOL/L (136-145)
[2017-11-09 01:05] VITALS: BP 99/65
[2017-11-09 02:55] VITALS: BP 114/64
[2017-11-09 03:45] LABS: APPEARANCE,URINE CLEAR; BILIRUBIN, URINE NEGATIVE (NEGATIVE); COLOR,URINE PALE YELLOW; GLUCOSE, URINE (UA) NEGATIVE (NEGATIVE); KETONES,URINE NEGATIVE (NEGATIVE); LEUKOCYTE ESTERASE ,URINE NEGATIVE (NEGATIVE); NITRITE,URINE NEGATIVE (NEGATIVE); PH,URINE 6 (4.5-8.0); PROTEIN,URINE NEGATIVE (NEGATIVE); UROBILINOGEN,URINE NORMAL MG/DL (0.0-1.0)
[2017-11-09 04:00] VITALS: BP 134/80
[2017-11-09 08:00] VITALS: BP 112/60
[2017-11-09] MEDS ORDERED: Pantoprazole Inj IVP SCH (09:00)
[2017-11-09] MEDS ORDERED: D5 1/2NS 1,000 ML IV SCH (09:00)
--- NOTE | 2017-11-09 11:00 | Diagnostic Imaging Report ---
Indication: Chest pain Technique: One view of the chest Comparison: none Findings: Lungs and pleural spaces are clear. The heart size is upper limits of normal. Impression: No acute process
--- NOTE | 2017-11-09 12:34 | History and Physical ---
History of Present Illness General Date patient seen: Nov 09, 2017 Reason for Hospitalization: Dizziness Present Illness HPI 67-year-old male who was recently discharged from the hospital for intractable back pain secondary to compression fracture. He came in today with chief complaint of dizziness and GI bleeding. He has a history of duodenal bleed 10 years ago. He said he is complaining of epigastric pain and had several bowel movement that is bloody in nature. Started around 2 PM today. He had 4 episode home and one episode here in triage. His BP was borderline low and admitted to telemetry for further work up. Allergies: Coded Allergies: No Known Allergies (Unverified , 11/01/17) Medication History Scheduled Acetaminophen With Codeine (T#3) (Tylenol #3 Tab*), 1 TAB ORAL EVERY 6 HOURS, ( Reported) Aripiprazole* (Abilify*), 20 MG ORAL DAILY, (Reported) Aspirin* (Aspir 81*), 81 MG ORAL DAILY, (Reported) Atorvastatin Calcium* (Atorvastatin Calcium*), 40 MG ORAL BEDTIME, (Reported) Cholecalciferol (Vitamin D3)* (Vitamin D*), 1,000 UNIT ORAL DAILY, (Reported) Lisinopril (Lisinopril*), 20 MG ORAL DAILY, (Reported) Metformin Hcl* (Metformin Hcl*), 1,000 MG ORAL DAILY, (Reported) Multivitamins* (Multivitamins*), 1 TAB ORAL DAILY, (Reported) Tamsulosin Hcl (Tamsulosin Hcl*), 0.4 MG ORAL BEDTIME, (Reported) [androgel 1.62 %], 1.62 % TP DAILY, (Reported) Scheduled PRN Acetaminophen With Codeine (T#3) (Tylenol #3 Tab*), 1 TAB ORAL EVERY 6 HOURS PRN for For Pain, (Reported) Loratadine (Loratadine), 10 MG PO DAILY PRN for sneezing, (Reported) Miscellaneous Medications Benzonatate (Benzonatate), 100 MG PO, (Reported) Unable to Obtain Medications (Unable To Obtain Meds), (Reported) Patient History Healthcare decision maker Resuscitation status Full Code Advanced Directive on File No Past Medical/Surgical History Past Medical/Surgical History: (1) Intractable back pain Review of Systems All Other Systems: negative except mentioned in HPI Physical Exam General Appearance: WD/WN Lines, tubes and drains: peripheral HEENT: normocephalic, atraumatic Neck: non-tender, normal alignment Respiratory/Chest: chest wall non-tender, lungs clear Breasts: no masses Cardiovascular/Chest: normal peripheral pulses Abdomen: normal bowel sounds, non tender Genitourinary/Rectal: normal genital exam Extremities: normal range of motion Last 24 Hour Vital Signs Date Time Temp Pulse Resp B/P (MAP) Pulse Ox O2 Delivery O2 Flow Rate FiO2 11/09/17 08:00 97.0 103 18 112/60 96 Room Air 97.0 11/09/17 04:00 97.7 95 20 134/80 97 Room Air 97.7 11/09/17 03:30 97.6 96 19 114/64 99 Room Air 97.6 11/09/17 02:55 97.6 96 19 114/64 99 Room Air 97.6 11/09/17 01:05 92 18 99/65 97 Room Air 11/09/17 00:05 96 21 97/64 98 Room Air 11/08/17 22:10 100 26 95/56 97 Room Air 11/08/17 20:30 97.8 111 26 99/52 95 Room Air 97.8 11/08/17 20:15 97.6 109 16 96/64 98 Room Air 97.5 Intake and Output 11/08/17 11/09/17 19:00 07:00 Intake Total 1000 ml Balance 1000 ml Intake IV Total 1000 ml # Voids 2 Laboratory Tests Test 11/08/17 23:40 11/09/17 03:00 White Blood Count 17.7 K/UL (4.8-10.8) H Red Blood Count 3.31 M/UL (4.70-6.10) L Hemoglobin 12.0 G/DL (14.2-18.0) L Hematocrit 32.9 % (42.0-52.0) L Mean Corpuscular Volume 99 FL (80-99) Mean Corpuscular Hemoglobin 36.1 PG (27.0-31.0) H Mean Corpuscular Hemoglobin Concent 36.4 G/DL (32.0-36.0) H Red Cell Distribution Width 10.8 % (11.6-14.8) L Platelet Count 208 K/UL (150-450) Mean Platelet Volume 6.5 FL (6.5-10.1) Neutrophils (%) (Auto) 82.1 % (45.0-75.0) H Lymphocytes (%) (Auto) 11.2 % (20.0-45.0) L Monocytes (%) (Auto) 5.7 % (1.0-10.0) Eosinophils (%) (Auto) 0.2 % (0.0-3.0) Basophils (%) (Auto) 0.8 % (0.0-2.0) Prothrombin Time 10.9 SEC (9.30-11.50) Prothromb Time International Ratio 1.0 (0.9-1.1) Activated Partial Thromboplast Time 27 SEC (23-33) Sodium Level 135 MMOL/L (136-145) L Potassium Level 4.4 MMOL/L (3.5-5.1) Chloride Level 101 MMOL/L (98-107) Carbon Dioxide Level 20 MMOL/L (21-32) L Anion Gap 14 mmol/L (5-15) Blood Urea Nitrogen 44 mg/dL (7-18) H Creatinine 1.4 MG/DL (0.55-1.30) H Estimat Glomerular Filtration Rate 50.9 mL/min (>60) Glucose Level 273 MG/DL (74-106) H Calcium Level 8.7 MG/DL (8.5-10.1) Troponin I 0.027 ng/mL (0.000-0.056) Urine Color Pale yellow Urine Appearance Clear Urine pH 6 (4.5-8.0) Urine Specific [place] 1.015 (1.005-1.035) Urine Protein Negative (NEGATIVE) Urine Glucose (UA) Negative (NEGATIVE) Urine Ketones Negative (NEGATIVE) Urine Occult Blood Negative (NEGATIVE) Urine Nitrite Negative (NEGATIVE) Urine Bilirubin Negative (NEGATIVE) Urine Urobilinogen Normal MG/DL (0.0-1.0) Urine Leukocyte Esterase Negative (NEGATIVE) Urine RBC 0 /HPF (0 - 0) Urine WBC 0 /HPF (0 - 0) Urine Squamous Epithelial Cells Few /LPF (NONE/OCC) Urine Bacteria None /HPF (NONE) Height (Feet): 5 Height (Inches): 8.00 Weight (Pounds): 185 Medications Current Medications Medications (Trade) Dose Ordered Sig/[place]eas[place] Route PRN Reason Start Time Stop Time Status Last Admin Dose Admin Dextrose/Sodium Chloride 1,000 ml @ 75 mls/hr [id number] IV 11/09/17 09:00 12/09/17 08:59 11/09/17 09:15 Pantoprazole (Protonix) 40 mg DAILY IVP 11/09/17 09:00 12/09/17 08:59 11/09/17 09:15 Assessment/Plan Problem List: (1) GI bleed ICD Codes: K92.2 - Gastrointestinal hemorrhage, unspecified SNOMED: [id number] Qualifiers: Qualified Codes: K92.2 - Gastrointestinal hemorrhage, unspecified (2) Intractable back pain ICD Codes: M54.9 - Dorsalgia, unspecified SNOMED: 940595168 Assessment/Plan npo iv fluids GI evaluation H2 blockers dvt prophylaxis pain management. Anuj Hinojosa MD Nov 09, 2017 12:34
--- NOTE | 2017-11-09 17:37 | Cardiology Report ---
APPROVED REPORT EKG Measurement Heart [id number] ND [id number] Sinus tachycardia Otherwise normal ECG
--- NOTE | 2017-11-10 14:30 | Consultation ---
DATE OF CONSULTATION: 11/09/2017 NOTE: "POOR AUDIO" HEMATOLOGY/ONCOLOGY CONSULTATION CONSULTING PHYSICIAN: Ash Man M.D. REQUESTING PHYSICIAN: Anuj Hinojosa M.D. REASON FOR CONSULTATION: Evaluation of GI bleed and anemia. IDENTIFICATION DATA: Dear Dr. Hinojosa, The patient is a pleasant 67-year-old male with past medical history significant for intractable back pain and compression fracture, at this time presents to the hospital with dizziness as well as GI bleed, has a duodenal ulcer as well as in the triage, blood pressure is borderline low, admitted to the telemetry for further evaluation. Hematology Service was consulted for further workup of the patient's anemia and GI bleed. PAST MEDICAL HISTORY: GI bleed, hypertension, . PAST SURGICAL HISTORY: . MEDICATIONS: , metformin, multivitamin, tamsulosin, Lipitor, . REVIEW OF SYSTEMS: CONSTITUTIONAL: No fevers, chills, or night sweats. SKIN: No rashes, bumps, or itching. HEENT: No headache, hearing or vision changes. BREASTS: No lumps, pain, or discharge. PULMONARY: No cough, sputum, or shortness of breath. GASTROINTESTINAL: No nausea, vomiting, or diarrhea. GENITOURINARY: No dysuria, frequency, or urgency. MUSCULOSKELETAL: No joint swelling, muscle pain, or trauma. PHYSICAL EXAMINATION: VITAL SIGNS: Reviewed. GENERAL: No acute distress. PULMONARY: Decreased breath sounds. CARDIOVASCULAR: Regular rate. No S3 or S4. ABDOMEN: Soft, nontender, and nondistended. EXTREMITIES: No cyanosis, swelling, or edema. LABORATORY DATA: WBC 17,000, hemoglobin 12, and platelet count 208,000. INR of 1. BUN of , creatinine . ASSESSMENT AND RECOMMENDATIONS: 1. Anemia due to gastrointestinal bleed, . Continue to closely monitor. . 2. Gastrointestinal bleed. GI evaluation as needed. GI Service consulted. . 3. History of intractable back pain. The patient stopped taking Motrin. Back pain currently is 6/. 4. Hypertension. Continue to closely monitor. 5. Duodenal ulcer in the past. Continue Pepcid and Protonix. Ash Man M.D. DR: Ayesha JOB#: [id number] CC:
--- NOTE | 2017-11-10 23:06 | Consultation ---
History of Present Illness General Date patient seen: Nov 09, 2017 Chief Complaint: Dizziness Present Illness HPI 67-year-old male who was recently discharged from the hospital for intractable back pain secondary to compression fracture. He came in today with chief complaint of dizziness and GI bleeding. the pt pw severe anxiety and restlessness Allergies: Coded Allergies: No Known Allergies (Unverified , 11/01/17) Medication History Scheduled Acetaminophen With Codeine (T#3) (Tylenol #3 Tab*), 1 TAB ORAL EVERY 6 HOURS, ( Reported) Aripiprazole* (Abilify*), 20 MG ORAL DAILY, (Reported) Aspirin* (Aspir 81*), 81 MG ORAL DAILY, (Reported) Atorvastatin Calcium* (Atorvastatin Calcium*), 40 MG ORAL BEDTIME, (Reported) Cholecalciferol (Vitamin D3)* (Vitamin D*), 1,000 UNIT ORAL DAILY, (Reported) Lisinopril (Lisinopril*), 20 MG ORAL DAILY, (Reported) Metformin Hcl* (Metformin Hcl*), 1,000 MG ORAL DAILY, (Reported) Multivitamins* (Multivitamins*), 1 TAB ORAL DAILY, (Reported) Tamsulosin Hcl (Tamsulosin Hcl*), 0.4 MG ORAL BEDTIME, (Reported) [androgel 1.62 %], 1.62 % TP DAILY, (Reported) Scheduled PRN Acetaminophen With Codeine (T#3) (Tylenol #3 Tab*), 1 TAB ORAL EVERY 6 HOURS PRN for For Pain, (Reported) Loratadine (Loratadine), 10 MG PO DAILY PRN for sneezing, (Reported) Miscellaneous Medications Benzonatate (Benzonatate), 100 MG PO, (Reported) Unable to Obtain Medications (Unable To Obtain Meds), (Reported) Patient History History Provided By: Patient, Medical Record, PMD Healthcare decision maker Resuscitation status Full Code Advanced Directive on File No Past Medical/Surgical History Past Medical/Surgical History: (1) Seizure disorder (2) transaminitis (3) Intractable back pain Physical Exam Height (Feet): 5 Height (Inches): 8.00 Weight (Pounds): 185 Assessment/Plan Assessment/Plan anxiety mdd cont currt Yoly Mendez M.D. Nov 10, 2017 23:06
--- NOTE | 2017-11-11 13:40 | Discharge Summary ---
Discharge Summary Hospital Course Date of Admission Nov 09, 2017 at 00:31 Date of Discharge Nov 09, 2017 at 12:00 Admitting Diagnosis GI BLEED HPI Phyllis Almeida is a 67 year old male who was admitted on Nov 09, 2017 at 00:31 for Gi Bleed Discharge Discharge Disposition Patient left AMA Discharge Diagnoses: Kathe Zheng NP Nov 11, 2017 13:40
--- NOTE | 2017-11-12 03:45 | Discharge Summary 2 SIG ---
DATE OF ADMISSION: 11/09/2017 DATE OF DISCHARGE: 11/09/2017 CONSULTANTS: 1. Yoly Johnson M.D. 2. Ash Man M.D. BRIEF HOSPITAL COURSE: The patient is a 67-year-old male, who was recently discharged from the hospital for intractable back pain, secondary to compression fracture. He came in due to dizziness and GI bleed. The patient had a history of duodenal bleed 10 years ago and had been complaining of epigastric pain with several bloody bowel movements. He felt weak and dizzy. There was no nausea and no vomiting. He was admitted to the telemetry for evaluation of GI bleed and intractable pain. He was placed on NPO and was started on IV fluids and was given H2 blockers. Full treatment was not carried out as the patient left against medical advice. FINAL DIAGNOSES: 1. Possible gastrointestinal bleed. 2. Intractable back pain, secondary to compression fracture on the thoracic spine. 3. Noncompliance as the patient signed out against medical advice. DISPOSITION: The patient left AMA. Anuj Hinojosa M.D. I have been assigned to dictate discharge summary on this account and I was not involved in the patient's management. Kathe Zheng N.P. DR: JAMIA JOB#: [id number] CC: [email or web address]
== END 2017-11-09 12:00 | disposition left against medical advice (07) | DRG 379 ==
LOC: EDBD 20:25 → EMR 20:54 → 2E 11-09 00:31 → EDBEDREQ 11-09 02:54
DX: K92.2 Gastrointestinal hemorrhage, unspecified (principal); I10 Essential (primary) hypertension; D50.0 Iron deficiency anemia secondary to blood loss (chronic); F41.9 Anxiety disorder, unspecified; F32.9 Major depressive disorder, single episode, unspecified; S22.008D Other fracture of unspecified thoracic vertebra, subsequent encounter for fracture with routine healing; X58.XXXD Exposure to other specified factors, subsequent encounter
CPT/HCPCS: 36415; 71045; 80048; 81001; 82962; 84484; 85025; 85610; 85730; 86850; 86900; 86901; 87081; 93005; 99285

== ENCOUNTER 2019-06-19 18:02 | Inpatient (IN) | payer MEDICARE, OTHER ==
[~2019-06-19] VITALS: Ht 172.7 cm; Wt 77.6 kg
--- NOTE | 2019-06-19 18:39 | Emergency Room Report ---
History of Present Illness General Chief Complaint: Altered Mental Status Source: Family Member, Medical Record, EMS Present Illness HPI Disclaimer: Please note that this report is being documented using DRAGON technology. This can lead to erroneous entry secondary to incorrect interpretation by the dictating instrument. HPI: 68-year-old male with a history of bipolar disorder, seizure disorder, diabetes, documented opiate abuse presents for evaluation of altered mental status. According to EMS, the patient's psychiatrist called them to go to the house and bring the patient to hospital for evaluation. The psychiatrist was reportedly contacted by the patient's who states over the past 3 days he has had increased lethargy and has been more and more confused. No reported trauma. Review of documentation shows he has been noncompliant with his medications in the past. EMS state his fingerstick was in the 120s and EKG showed sinus rhythm with a normal rate. The patient is oriented to self but not to time or situation. He has no complaints of pain or discomfort at this time. He is resting comfortably on the gurney during my evaluation. PMH: Bipolar disorder, seizure disorder, diabetes, GI bleed, opiate abuse PSH: See chart Allergies: None listed Social Hx: Unable to obtain from patient, documented opiate abuse in the past Allergies: Coded Allergies: No Known Allergies (Unverified , 11/01/17) Nursing Documentation-PMH Past Medical History: No History, Except For Hx Cardiac Problems: Yes Hx Hypertension: Yes Hx Diabetes: Yes Hx Cancer: No Hx Gastrointestinal Problems: Yes - duodenal ulcer Hx Seizures: Yes Hx Head Trauma: No Hx Traumatic Brain Injury: Yes Review of Systems All Other Systems: limited - Unable to perform full ROS due to patient's mental status Physical Exam Vital Signs Date Time Temp Pulse Resp B/P (MAP) Pulse Ox O2 Delivery O2 Flow Rate FiO2 06/19/19 18:06 97.3 93 16 141/73 (95) 95 Room Air General: Awake, no acute distress HEENT: NC/AT. No scalp or face hematomas, lacerations or abrasions. EOMI. pupils are 4 mm and reactive bilaterally. Mucous membranes are dry Cardiovascular: RRR. S1 and S2 normal. No murmur appreciated Resp: Normal work of breathing. Intermittent cough throughout the exam Abdomen: Abdomen is soft, nondistended. Nontender Skin: Intact. No abrasions, laceration or rash over the exposed skin MSK: Normal tone and bulk. Moving all extremities. No obvious deformity. Neuro: Patient is awake, flat affect. Oriented to self only. Moving all extremities. 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 Symmetrical facial expressions. Medical Decision Making Diagnostic Impression: Primary Impression: Altered mental status Additional Impressions: Encephalopathy Hyperammonemia Elevated bilirubin ER Course 68-year-old male with a history of bipolar disorder, diabetes, substance abuse presents for evaluation of 3 days of worsening mental status according to EMS. Difficult to obtain any information from patient. Will start metabolic, infectious and tox work-up. Laboratory Tests Test 06/19/19 18:30 06/19/19 19:10 06/19/19 20:06 White Blood Count 9.6 K/UL (4.8-10.8) Red Blood Count 3.54 M/UL (4.70-6.10) L Hemoglobin 13.2 G/DL (14.2-18.0) L Hematocrit 36.1 % (42.0-52.0) L Mean Corpuscular Volume 102 FL (80-99) H Mean Corpuscular Hemoglobin 37.3 PG (27.0-31.0) H Mean Corpuscular Hemoglobin Concent 36.6 G/DL (32.0-36.0) H Red Cell Distribution Width 11.4 % (11.6-14.8) L Platelet Count 119 K/UL (150-450) L Mean Platelet Volume 6.9 FL (6.5-10.1) Neutrophils (%) (Auto) 67.6 % (45.0-75.0) Lymphocytes (%) (Auto) 19.0 % (20.0-45.0) L Monocytes (%) (Auto) 8.7 % (1.0-10.0) Eosinophils (%) (Auto) 3.1 % (0.0-3.0) H Basophils (%) (Auto) 1.7 % (0.0-2.0) Sodium Level 139 MMOL/L (136-145) Potassium Level 3.6 MMOL/L (3.5-5.1) Chloride Level 106 MMOL/L (98-107) Carbon Dioxide Level 20 MMOL/L (21-32) L Anion Gap 13 mmol/L (5-15) Blood Urea Nitrogen 15 mg/dL (7-18) Creatinine 1.3 MG/DL (0.55-1.30) Estimate Glomerular Filtration Rate 55.2 mL/min (>60) Glucose Level 125 MG/DL (74-106) H Lactic Acid Level 2.70 mmol/L (0.4-2.0) H Calcium Level 9.2 MG/DL (8.5-10.1) Total Bilirubin 2.4 MG/DL (0.2-1.0) H Direct Bilirubin 0.9 MG/DL (0.0-0.3) H Aspartate Amino Transferase (AST) 51 U/L (15-37) H Alanine Aminotransferase (ALT) 29 U/L (12-78) Alkaline Phosphatase 124 U/L (46-116) H Ammonia 92 umol/L (11-32) H Total Creatine Kinase 151 U/L (26-308) Creatine Kinase MB 2.1 NG/ML (0.0-3.6) Creatine Kinase MB Relative Index 1.3 Troponin I 0.000 ng/mL (0.000-0.056) Total Protein 7.9 G/DL (6.4-8.2) Albumin 2.6 G/DL (3.4-5.0) L Globulin 5.3 g/dL Albumin/Globulin Ratio 0.5 (1.0-2.7) L Salicylates Level < 0.2 ug/mL (2.8-20) L Acetaminophen Level < 2 MCG/ML (10-30) L Serum Alcohol < 3 mg/dL Arterial Blood pH 7.466 (7.350-7.450) Arterial Blood Partial Pressure CO2 25.7 mmHg (35.0-45.0) L Arterial Blood Partial Pressure O2 71.0 mmHg (75.0-100.0) L Arterial Blood HCO3 18.1 mmol/L (22.0-26.0) L Arterial Blood Oxygen Saturation 93.9 % (95-100) L Arterial Blood Base Excess -4.1 (-2-2) L Logan Test Positive Urine Color Yellow Urine Appearance Clear Urine pH 6 (4.5-8.0) Urine Specific [place] 1.010 (1.005-1.035) Urine Protein Negative (NEGATIVE) Urine Glucose (UA) Negative (NEGATIVE) Urine Ketones Negative (NEGATIVE) Urine Blood 1+ (NEGATIVE) H Urine Nitrite Negative (NEGATIVE) Urine Bilirubin Negative (NEGATIVE) Urine Urobilinogen 8 MG/DL (0.0-1.0) H Urine Leukocyte Esterase Negative (NEGATIVE) Urine RBC 5-10 /HPF (0 - 0) H Urine WBC 0-2 /HPF (0 - 0) Urine Squamous Epithelial Cells Occasional /LPF Urine Bacteria Few /HPF (NONE) Urine Mucus Moderate /LPF (NONE/OCC) H Urine Opiates Screen Negative (NEGATIVE) Urine Barbiturates Screen Negative (NEGATIVE) Phencyclidine (PCP) Screen Negative (NEGATIVE) Urine Amphetamines Screen Negative (NEGATIVE) Urine Benzodiazepines Screen Negative (NEGATIVE) Urine Cocaine Screen Negative (NEGATIVE) Urine Marijuana (THC) Screen Negative (NEGATIVE) EKG Diagnostic Results EKG Time: 19:07 Rate: normal Rhythm: NSR ST Segments: no acute changes Other Impression Sinus rhythm, normal axis, prolonged OH interval at 200 ms, prolonged QTC at [address] segment changes. Rhythm Strip Diag. Results Rhythm Strip Time: 19:07 EP Interpretation: yes Rate: 80s Rhythm: NSR, no PVC's, no ectopy Reevaluation Time: 18:54 Last Vital Signs Date Time Temp Pulse Resp B/P (MAP) Pulse Ox O2 Delivery O2 Flow Rate FiO2 06/19/19 18:06 97.3 93 16 141/73 (95) 95 Room Air Reevaluation Impression The patient's called the emergency department to provide additional information. He has been without his Abilify for approximately 1 week and states that he was found on the floor without any reported seizure-like activity 1 or 2 days ago. She does not know what medications he is taking but states he has not had a known seizure within the past 2 years. Again she reinforces that his mentation is declined over the past 2 to 3 days and has become more more somnolent and lethargic. She states he has pulmonary fibrosis and has a chronic cough but otherwise no noticeable changes in his health 2139: Labs show an elevated ammonia, elevated bilirubin, normal LFTs. May represent early liver disease and will treat with lactulose. The patient's condition is unchanged. Again, he is oriented to self but not to situation or time. His thinking is tangential and his affect is flat. CT scan of the head was atraumatic. Labs otherwise within normal limits without evidence of toxicology causes of altered mental status, no urinary tract infection, otherwise normal- appearing lab work. He will be admitted to telemetry for further monitoring and work-up. Disposition: ADMITTED INPATIENT Condition: Serious Kyle Casiano MD Jun 19, 2019 18:39
--- NOTE | 2019-06-19 18:45 | NUR ---
ED Nurse Note:pt. 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
[2019-06-19 18:52] VITALS: BP 141/73
[2019-06-19 19:10] LABS: BASOPHILS % (AUTO) 1.7 % (0.0-2.0); EOSINOPHILS % (AUTO) 3.1 % (0.0-3.0); HEMATOCRIT 36.1 % (42.0-52.0); HEMOGLOBIN 13.2 G/DL (14.2-18.0); MEAN CORPUSCULAR VOLUME 102 FL (80-99); MONOCYTES % (AUTO) 8.7 % (1.0-10.0); NEUTROPHILS % (AUTO) 67.6 % (45.0-75.0); PLATELET COUNT 119 K/UL (150-450); RED BLOOD COUNT 3.54 M/UL (4.70-6.10); RED CELL DISTRIBUTION WIDTH 11.4 % (11.6-14.8); WHITE BLOOD COUNT 9.6 K/UL (4.8-10.8)
[2019-06-19 19:16] LABS: AMMONIA 92 umol/L (11-32)
[2019-06-19 19:18] LABS: ANION GAP 13 mmol/L (5-15); BLOOD UREA NITROGEN 15 mg/dL (7-18); CALCIUM 9.2 MG/DL (8.5-10.1); CARBON DIOXIDE 20 MMOL/L (21-32); CHLORIDE 106 MMOL/L (98-107); CREATININE 1.3 MG/DL (0.55-1.30); POTASSIUM 3.6 MMOL/L (3.5-5.1); SODIUM 139 MMOL/L (136-145)
[2019-06-19 19:34] LABS: ALANINE AMINOTRANSFERASE 29 U/L (12-78); ALBUMIN 2.6 G/DL (3.4-5.0); ALBUMIN/GLOBULIN RATIO 0.5 (1.0-2.7); ALKALINE PHOSPHATASE 124 U/L (46-116); ASPARTATE AMINO TRANSFERASE 51 U/L (15-37); BILIRUBIN,TOTAL 2.4 MG/DL (0.2-1.0); CKMB 2.1 NG/ML (0.0-3.6); CREATINE KINASE 151 U/L (26-308)
[2019-06-19 19:35] LABS: BILIRUBIN,DIRECT 0.9 MG/DL (0.0-0.3)
[2019-06-19 20:27] LABS: APPEARANCE,URINE CLEAR; BILIRUBIN, URINE NEGATIVE (NEGATIVE); GLUCOSE, URINE (UA) NEGATIVE (NEGATIVE); KETONES,URINE NEGATIVE (NEGATIVE); LEUKOCYTE ESTERASE ,URINE NEGATIVE (NEGATIVE); NITRITE,URINE NEGATIVE (NEGATIVE); PH,URINE 6 (4.5-8.0); PROTEIN,URINE NEGATIVE (NEGATIVE); UROBILINOGEN,URINE 8 MG/DL (0.0-1.0)
[2019-06-19 20:29] LABS: COLOR,URINE YELLOW
[2019-06-19 20:30] VITALS: BP 132/67
--- NOTE | 2019-06-19 20:31 | NUR ---
ER Nurse Note: Pt a&ox2 to name and time; pt able to follow comands. Pt VSS, 2L NS at 96% O2, stable. Pt resting in bed, calm. Latic acid 2.7, aware and fluids ordered. IV RT AC infusing NS. All orders completed; pending admission. All safety measures met; [facility]
--- NOTE | 2019-06-19 20:51 | Diagnostic Imaging Report ---
Indications: Head pain, status post fall Technique: Spiral acquisitions obtained through the brain. Angled axial and coronal 5 x 5 mm slices were reconstructed. Total dose length product 1583 mGycm. CTDI vol(s) 62 mGy. Dose reduction achieved using automated exposure control Comparison: None. Findings: No acute adrenal hemorrhage or edema. No mass effect nor midline shift. There is age-related enlargement of the ventricles and extra axial CSF spaces. Normal charles-white differentiation. Intact calvarium. Visualized orbits and sinuses are unremarkable. The mastoids are clear. Impression: Mild age-related volume loss. Negative for acute intracranial bleed or mass effect. This agrees with the preliminary interpretation provided overnight by [facility] service. The CT scanner at [facility] is accredited by the [employer] and the scans are performed using protocols designed to limit radiation exposure to as low as reasonably achievable to attain images of sufficient resolution adequate for diagnostic evaluation.
[2019-06-19] MEDS ORDERED: Lactulose 20gm/30ml UDC ORAL ONE (21:30)
[2019-06-19] MEDS ORDERED: Lactulose 20gm/30ml UDC ORAL SCH (22:30)
--- NOTE | 2019-06-19 22:31 | NUR ---
ER Nurse Note: Report given to MEG Valadez for continuity of care.
[2019-06-19 22:40] VITALS: BP 134/84
--- NOTE | 2019-06-19 22:40 | NUR ---
NURSE NOTES: Received pt from ED via [facility]. Pt transferred to 201-1 without any incident. Pt is A/Ox2. [place] pt to room and unit. Received report from MEG Lamas. patient office rep is in placed, IV site intact, asymptomatic, and patent. Bed is in the lowest position and locked. Call light within reach. Belongings list checked and accounted for. Received admission orders from Dr. Perry. Will note and carry out. No signs/symptoms of acute distress noted at this time. Will continue plan of care.
[2019-06-20] VITALS (7 sets, daily range): BP systolic 92–125; BP diastolic 51–73
[2019-06-20] MEDS: NovoLOG Insulin Flexpen SUBQ SCH ×4 (06:21→20:33)
[2019-06-20 07:19] LABS: HEMATOCRIT 34.1 % (42.0-52.0); HEMOGLOBIN 12.2 G/DL (14.2-18.0); MEAN CORPUSCULAR VOLUME 104 FL (80-99); PLATELET COUNT 99 K/UL (150-450); RED BLOOD COUNT 3.29 M/UL (4.70-6.10); RED CELL DISTRIBUTION WIDTH 11.8 % (11.6-14.8); WHITE BLOOD COUNT 7.6 K/UL (4.8-10.8)
[2019-06-20 07:35] LABS: ALANINE AMINOTRANSFERASE 25 U/L (12-78); ALBUMIN 2.1 G/DL (3.4-5.0); ALBUMIN/GLOBULIN RATIO 0.5 (1.0-2.7); ALKALINE PHOSPHATASE 103 U/L (46-116); ANION GAP 11 mmol/L (5-15); ASPARTATE AMINO TRANSFERASE 47 U/L (15-37); BLOOD UREA NITROGEN 11 mg/dL (7-18); CALCIUM 8.7 MG/DL (8.5-10.1); CARBON DIOXIDE 19 MMOL/L (21-32); CHLORIDE 112 MMOL/L (98-107); CREATININE 1.2 MG/DL (0.55-1.30); POTASSIUM 3.6 MMOL/L (3.5-5.1); SODIUM 142 MMOL/L (136-145)
[2019-06-20 07:37] LABS: BILIRUBIN,DIRECT 0.7 MG/DL (0.0-0.3)
[2019-06-20] MEDS ORDERED: Omnipaque-300 100ml vial INJ PRN (08:00)
--- NOTE | 2019-06-20 08:00 | NUR ---
NURSE NOTES: Received bedside report from Brandy RN. Pt. in bed, awake, a/o x 2, confused. No sign of distress. Denies pain at present. IV at left wrist #20g. and right AC #20g. in placed patent/intact running NS @ 100cc/hr. Tolerating well. Bed in low position, locked. Call light within reach. Will cont. to monitor.
--- NOTE | 2019-06-20 08:00 | NUR ---
HAND-OFF: Report given to MEG Hanson. Plan of care endorsed.
[2019-06-20] MEDS: Lactulose 20gm/30ml UDC ORAL SCH ×3 (08:43→17:22)
[2019-06-20] MEDS ORDERED: Aspirin EC 81mg tab ORAL SCH (09:00)
[2019-06-20] MEDS ORDERED: metFORMIN 500mg tab ORAL SCH (09:00)
[2019-06-20] MEDS ORDERED: Thiamine 100mg tab ORAL SCH (09:00)
[2019-06-20] MEDS ORDERED: Lisinopril 10mg tab ORAL SCH ×2 (09:00→18:00)
[2019-06-20] MEDS ORDERED: LORazepam Inj 2mg/ml 1ml IV PRN ×2 (14:00)
--- NOTE | 2019-06-20 14:06 | NUR ---
NURSE NOTES: Pt. transferred to 4E from Tele. Gave report to Magnolia WEAVER. Pt. remain stable.
--- NOTE | 2019-06-20 14:10 | NUR ---
NURSE NOTES: Patient transfer received in stable condition, spouse Meagan by the bedside. Patient is alert and orientedx2, breathing unlabored on room air. Denies pain or SOB at this time. 2 IV sites identified. Oriented to room and staff. Bed locked in lowest position, call light placed within reach. Commode set by the bedside. Bed alarm turned on. Will continue to monitor.
--- NOTE | 2019-06-20 14:14 | Diagnostic Imaging Report ---
Clinical Indication: Abdominal pain Technique: Patient given oral contrast. IV administration nonionic contrast. Venous phase spiral acquisition obtained through the abdomen and pelvis. Multiplanar reconstructions were generated. Total dose length product 1069 mGycm. CTDIvol(s) 17 mGy. Dose reduction achieved using automated exposure control Comparison: none Findings: There is marked thickening of the wall of the ascending colon. There is less striking wall thickening of the proximal transverse colon. There is associated edema of the pericolonic fat. No mural gas. There is a small amount of free intraperitoneal fluid. The appendix is normal. Contrast is seen throughout the entirety of the small bowel and well into the colon. No small bowel distention. No small bowel wall thickening. The mesenteric vessels are patent. There is extensive colonic diverticulosis. There is wall thickening of the mid sigmoid. No free intraperitoneal gas. The liver demonstrates a slight degree surface nodularity. No focal abnormality. Small varices are seen in the splenic hilum and in the perigastric region. There are also more sizable periesophageal varices demonstrated. The gallbladder is distended and the wall is slightly thickened and edematous. However, there are no gallstones demonstrated. There is no biliary ductal dilatation. The pancreas is unremarkable. Spleen is borderline enlarged, measuring 13 cm long axis dimension. There is an accessory splenule. The adrenals are unremarkable. The kidneys are unremarkable. No retroperitoneal or mesenteric mass or adenopathy. No pelvic mass or adenopathy. There is fusiform ectasia of the bilateral common iliac arteries, right greater than left, not quite aneurysmal. No pelvic mass or adenopathy demonstrated. The bladder is unremarkable. The included lung bases demonstrate extensive interstitial septal thickening, bronchiectasis, and areas of right greater than left confluent opacity. The heart is upper limits normal in size. The bones demonstrate mild degenerative spondylosis changes. There is a wedge compression fracture deformity of the T9 vertebral body, with approximately 60% height loss anteriorly. This represents progression since a thoracic spine CT of 11/02/2017 Impression: Marked wall thickening of the ascending colon and proximal transverse colon with associated edema of the pericolonic fat. This is consistent with colitis, nonspecific as regards etiology Colonic diverticulosis. Wall thickening of the mid sigmoid is noted, probably represents circular muscle hypertrophy related to such. However, the possibility of a sigmoid neoplasm in this location should also be considered Evidence of hepatic cirrhosis, with hepatic surface nodularity Evidence of portal hypertension, with ascites, perisplenic perigastric and periesophageal varices, mild splenomegaly Distended gallbladder without definite gallstones. Gallbladder wall thickening and edema is probably related to the hepatocellular abnormality, but the possibility of acute cholecystitis either due to occult stone disease or acalculous should also be considered Extensive pulmonary parenchymal disease, as described. Mostly if not exclusively due to end-stage pulmonary fibrosis. Confluent opacities in the right lung probably represent confluent scarring, but could also represent areas of acute infiltrate T9 vertebral body compression fracture deformity, with approximately 60% height loss, to indeterminate but progressive since a thoracic spine CT of 11/02/2017 Fusiform ectasia of the bilateral common iliac arteries The CT scanner at [facility] is accredited by the [employer] and the scans are performed using protocols designed to limit radiation exposure to as low as reasonably achievable to attain images of sufficient resolution adequate for diagnostic evaluation.
--- NOTE | 2019-06-20 15:30 | Consultation ---
DATE OF CONSULTATION: 06/20/2019 GASTROENTEROLOGY CONSULTATION CONSULTING PHYSICIAN: Laura Toribio M.D. CHIEF COMPLAINT: I was asked to see this patient by Dr. Girish Perry for evaluation of abnormal liver tests and suspected cirrhosis. HISTORY OF PRESENT ILLNESS: The patient is a 68-year-old white man who is a poor historian who was brought into the hospital due to altered mental status. He cannot give much of a coherent history, but he does say there is something wrong with his liver. He has some scattered records in the hospital. He states he does not have any doctor medications. He does have elevated ammonia level on admission and he has been started on lactulose. Therefore, his history is less useful. He did have an MRI of his brain, which did not show any acute abnormalities. He denies any abdominal pain, nausea, or vomiting. He does admit to drinking 2 glasses of wine at night. He cannot recall if he ever had hepatitis. PAST MEDICAL HISTORY: History of liver disease, history of pulmonary fibrosis, diabetes, elevated cholesterol, bipolar disorder, hypertension, prostatic hypertrophy, and low back pain. FAMILY HISTORY: Reportedly negative. SOCIAL HISTORY: The patient is and states that his wants to get divorce from him. He does not have any children. He drinks 2 glasses of wine a day. He does not smoke. REVIEW OF SYSTEMS: Otherwise negative. PHYSICAL EXAMINATION: GENERAL: Elderly white man, seen in his room with somewhat of a flat affect and poorly responsive. HEENT: Normocephalic, atraumatic. NECK: Supple. CHEST: Clear to auscultation. CARDIOVASCULAR: Revealed a regular rate. ABDOMEN: Soft, nontender without masses. EXTREMITIES: Revealed trace lower extremity edema. LABORATORY DATA: Noted. ASSESSMENT: This patient presents with some abnormal liver tests, depressed platelet counts suspicious for chronic liver disease. He also admits to having a long-standing history of liver disease, but the exact nature and extent of his condition is not yet clear. I will check the CT scan of the abdomen and pelvis to evaluate his intra-abdominal organ specifically the liver to see there is any nodular changes consistent with cirrhosis. His INR should also be checked given his platelet count depression. His ammonia can be followed along with his mental status while he is receiving lactulose. Further recommendations will be based on above findings. I will also check an alpha-fetoprotein level to rule out hepatocellular carcinoma. Multivitamin, thiamine, folate should be administered. RECOMMENDATIONS: Per above discussion and per orders in the chart. Thank you for asking me to participate in the care of this patient. Laura Toribio M.D. DR: KINA JOB#: [id number] CC:
--- NOTE | 2019-06-20 16:04 | Diagnostic Imaging Report ---
Indication: Chest pain Technique: One view of the chest Comparison: 11/08/2017 Findings: Inspiration is suboptimal. There is crowding of bronchovascular markings. There is suggestion of mild interstitial congestion as well as bilateral scattered nodular interstitial opacities. The heart is borderline enlarged. Impression: Correlate cardiomegaly Suspect bilateral interstitial edema
--- NOTE | 2019-06-20 17:15 | Consultation ---
DATE OF CONSULTATION: 06/20/2019 PULMONARY CONSULTATION CONSULTING PHYSICIAN: Juan Catalan M.D. HISTORY OF PRESENT ILLNESS: This is a 68-year-old male with a history of bipolar disorder, who came to the hospital with altered mental status. The patient also reports cough and shortness of breath. The patient also has history of seizures, diabetes, and history of opiate abuse. The patient was reportedly lethargic. There is concerning maybe aspirating. He is admitted to the hospital for management and care. PAST HISTORY: Bipolar disorder, seizure disorder, diabetes mellitus, history of GI bleed, opiate abuse. SURGERIES: None. ALLERGIES: None. Past history notable as discussed above. REVIEW OF SYSTEMS: The patient denies any headaches, hematemesis, melena, or hematochezia. PHYSICAL EXAMINATION: GENERAL: Reveals a 68-year-old male. HEENT: Unremarkable. LUNGS: Clear breath sounds. HEART: Normal. ABDOMEN: Soft. NEUROLOGIC: Nonfocal. VITAL SIGNS: Blood pressure 140/70, heart rate 71, respiration rate 18, he is afebrile. LABORATORY DATA: Lab testing shows normal CBC and BMP with exception of hemoglobin 12.2. Platelets are decreased to 99,000. ABG shows pH 7.46, pCO2 25, pO2 71. Urinalysis is negative. Toxicology is negative. IMAGING STUDIES: Head CT was done, which was negative. IMPRESSION: 1. Altered mental status, likely secondary to medication use. 2. Psych disorder. 3. Aspiration risk. DISCUSSION: Currently, the patient is more awake and responsive. I would suggest a bedside nursing swallow eval. Continue medications and care. Psychiatric consult requested. We will follow. Juan Catalan M.D. DR: ELEUTERIO JOB#: [id number] CC:
--- NOTE | 2019-06-20 17:15 | History and Physical Report ---
DATE OF ADMISSION: 06/19/2019 REASON FOR ADMISSION: Acute encephalopathy. HISTORY OF PRESENT ILLNESS: The patient is a 68-year-old gentleman with known bipolar disorder along with diabetes, seizures, and opioid dependency, brought in for acute encephalopathy, change mental status. It seems that the patient's psychiatrist had called and told the patient to proceed to the emergency room for further evaluation. Psychiatrist reportedly was contacted by the patient's who stated over the last 3 days, he had increased lethargy and became more and more confused. Upon presentation to the emergency room, the patient was noted to have serum glucose in the normal range and normal heart rate. However, his ammonia level was 92 with an elevated total bilirubin. PAST MEDICAL HISTORY: 1. Bipolar disorder. 2. Seizure disorder. 3. Diabetes. 4. Gastrointestinal bleed. 5. Opioid dependency. PAST SURGICAL HISTORY: Noncontributory. ALLERGIES: No known drug allergies. SOCIAL HISTORY: No current tobacco, alcohol, or illicit drug use. He tania have a history of opioid dependency. FAMILY HISTORY: Positive for hypertension. REVIEW OF SYSTEMS: NEUROLOGIC: The patient denies headache, change in vision, syncope, or presyncopal episodes. CARDIOVASCULAR: No current chest pain, palpitations, or angina. PULMONARY: No difficulty breathing, productive cough, or sputum. GASTROINTESTINAL/GENITOURINARY: No change in urine or bowel habits. No nausea, vomiting, or diarrhea. ENDOCRINOLOGY: No night sweats, fevers, or chills. LABORATORY DATA: Laboratories dated June 20, 2019, sodium 142, potassium 3.6, and creatinine 1.2. Total bilirubin 2.0 and direct bilirubin 0.7. Ammonia level of 92. Albumin level 2.1. White cell count 7.6, hemoglobin 12.2, and platelet count 99,000. PHYSICAL EXAMINATION: VITAL SIGNS: Pulse 78, temperature 97.7, blood pressure 118/56, and 95% oxygen saturation on room air. GENERAL: The patient is awake, alert, mildly confused, and disoriented. HEENT: Extraocular muscles intact. No lymphadenopathy noted. CARDIOVASCULAR: S1, S2. No rubs or gallops. PULMONARY: Clear to auscultation bilaterally. No rales, rhonchi, or wheezes. ABDOMEN: Nondistended and nontender. EXTREMITIES: No edema. ASSESSMENT AND PLAN: 1. Acute encephalopathy secondary to ammonia toxicity with underlying liver dysfunction. Gastroenterology has been consulted to investigate the underlying hepatic dysfunction. 2. Diabetes mellitus. Continue low-carbohydrate diet and insulin sliding scale with Accu-Cheks along with metformin. 3. Dehydration. We will continue IV fluids. 4. Bipolar disorder. Seemingly has been on Abilify at this time. Psychiatry has been consulted for further evaluation and management. 5. DVT prophylaxis with SCDs. Girish Perry MD DR: FLORIDALMA JOB#: [id number] CC:
--- NOTE | 2019-06-20 17:50 | Cardiology Report ---
APPROVED REPORT EKG Measurement Heart [id number] [place] 200P37 [id number] Normal sinus rhythm Possible Left atrial enlargement Prolonged QT Abnormal ECG
--- NOTE | 2019-06-20 19:29 | NUR ---
HAND-OFF: Report given to Hilda WEAVER.
--- NOTE | 2019-06-20 19:51 | NUR ---
NURSE NOTES: Received report from MEG Merida. Patient is in bed sleeping. No signs of distress or SOB. Two IVs in place, one running NS @100. Bed locked and in lowest position. Call light in easy reach. Will continue to monitor.
[2019-06-20] MEDS: Tamsulosin 0.4mg cap ORAL SCH (20:25)
[2019-06-20] MEDS ORDERED: Tamsulosin 0.4mg cap ORAL SCH (21:00)
--- NOTE | 2019-06-20 21:15 | Consultation ---
DATE OF CONSULTATION: 06/20/2019 CONSULTING PHYSICIAN: Yoly Johnson M.D. HISTORY OF PRESENT ILLNESS: This is a 68-year-old male with a history of multiple medical issues including bipolar disorder, seizure disorder, diabetes, GI bleed who has been admitted to the hospital. The patient also has a history of opiate dependence. For the past several days, he became more lethargic and disoriented. During the evaluation, the patient was dozing off. He was unable to be engage and answer the question. He knew the year is 2018, however, he was unable to participate during the evaluation. The patient has been calm. No behavioral issues noted during the evaluation nor during the observation by the RN. According to the medical records, the psychiatrist send the patient to the hospital due to altered mental status. The patient regularly takes Abilify and has been off his aripiprazole. His urine toxicology is negative for any drugs or alcohol. PAST PSYCHIATRIC HISTORY: As I mentioned, bipolar disorder. He has a psychiatrist outside of the hospital and takes psychotropic medications. PAST MEDICAL HISTORY: Includes seizure disorder as well as diabetes mellitus. ALLERGIES: No known drug allergies. SUBSTANCE ABUSE HISTORY: Opiate, pain medications. MENTAL STATUS EXAMINATION: The patient is having waxing and waning consciousness. He was dozing off during the evaluation. His mood is neutral. Affect is constricted, congruent with mood. Thought process is concrete. Thought content, no suicidal or homicidal ideations. Cognition is impaired. Insight and judgment is impaired. ASSESSMENT: [place] I Acute metabolic encephalopathy. [place] II Bipolar disorder. [place] III As above. [place] IV Low. [place] V 10 PLAN: We will start the patient on risperidone 0.5 mg to correct the encephalopathy. Christian Norris JOB#: [id number] CC:
[2019-06-21] VITALS (8 sets, daily range): BP systolic 83–108; BP diastolic 45–62
[2019-06-21] MEDS: NovoLOG Insulin Flexpen SUBQ SCH ×4 (06:51→20:28)
--- NOTE | 2019-06-21 07:42 | NUR ---
NURSE NOTES: Patient awake, alert x2, confused and forgetful; on room air, no sing of distress and shortness of breath; no sign of chest pain; IV Right For arm 22G NS 100cc running; bed side commode within reach; side rails up and padded for seizure percussion, bed at lower position, breaks engaged, bed alarm on; will keep monitoring.
--- NOTE | 2019-06-21 07:52 | NUR ---
HAND-OFF: Report given to MEG Ramsey.
[2019-06-21 07:59] LABS: BASOPHILS % (AUTO) 1.2 % (0.0-2.0); EOSINOPHILS % (AUTO) 3.1 % (0.0-3.0); HEMATOCRIT 31.4 % (42.0-52.0); LYMPHOCYTES % (AUTO) 21.4 % (20.0-45.0); MEAN CORPUSCULAR VOLUME 105 FL (80-99); MONOCYTES % (AUTO) 8.4 % (1.0-10.0); NEUTROPHILS % (AUTO) 65.8 % (45.0-75.0); PLATELET COUNT 113 K/UL (150-450); RED BLOOD COUNT 3.01 M/UL (4.70-6.10); RED CELL DISTRIBUTION WIDTH 11.5 % (11.6-14.8); WHITE BLOOD COUNT 8.8 K/UL (4.8-10.8)
[2019-06-21] MEDS ORDERED: Omnipaque-300 100ml vial INJ PRN (08:00)
[2019-06-21 08:19] LABS: AMMONIA 65 umol/L (11-32)
[2019-06-21 08:22] LABS: INR 1.5 (0.9-1.1)
[2019-06-21 08:31] LABS: ALANINE AMINOTRANSFERASE 26 U/L (12-78); ALBUMIN 1.9 G/DL (3.4-5.0); ALBUMIN/GLOBULIN RATIO 0.5 (1.0-2.7); ALKALINE PHOSPHATASE 99 U/L (46-116); ANION GAP 12 mmol/L (5-15); ASPARTATE AMINO TRANSFERASE 51 U/L (15-37); BILIRUBIN,TOTAL 1.3 MG/DL (0.2-1.0); BLOOD UREA NITROGEN 11 mg/dL (7-18); CALCIUM 8.3 MG/DL (8.5-10.1); CARBON DIOXIDE 18 MMOL/L (21-32); CHLORIDE 109 MMOL/L (98-107); CREATININE 1.3 MG/DL (0.55-1.30); POTASSIUM 3.6 MMOL/L (3.5-5.1); SODIUM 139 MMOL/L (136-145)
[2019-06-21 08:32] LABS: BILIRUBIN,DIRECT 0.6 MG/DL (0.0-0.3)
--- NOTE | 2019-06-21 08:43 | NUR ---
NURSE NOTES: Patient's Blood Pressure is 85/48 P 99; I communicated MD Perry, waiting for order.
--- NOTE | 2019-06-21 09:37 | NUR ---
NURSE NOTES: MD Perry puts an order of NS 500cc Bolus; will keep monitoring patient's Blood pressure;
--- NOTE | 2019-06-21 09:54 | Nephrology Progress Note ---
Assessment/Plan Assessment/Plan: A/P 1) Encephalopathy- hepatic in nature - ammonia 92, on lactulose now 65 2) Hepatic Dysfunction- appreciate GI evaluation 3) Hypotension- IVFs, DC lisinopril 4) FINA - resolving. Cr stable 1.2 5) PSY DO- per Dr Johnson Subjective Date patient seen: Jun 21, 2019 Time patient seen: 09:51 ROS Limited/Unobtainable: No Allergies: Coded Allergies: No Known Allergies (Unverified , 11/01/17) Subjective Patient resting, calmer Objective Last 24 Hour Vital Signs Date Time Temp Pulse Resp B/P (MAP) Pulse Ox O2 Delivery O2 Flow Rate FiO2 06/21/19 08:00 98.4 99 20 85/48 (60) 91 99 06/21/19 04:00 98.0 82 18 98/55 (69) 95 06/21/19 01:28 Room Air 06/21/19 00:00 98.4 75 20 91/46 (61) 95 06/20/19 20:18 Room Air 06/20/19 20:00 98.1 74 20 95/73 (80) 94 06/20/19 17:22 102/56 06/20/19 16:00 97.6 76 20 102/56 (71) 94 06/20/19 14:00 97.8 80 20 92/51 (65) 92 06/20/19 12:00 98.4 79 20 98/65 (76) 93 06/20/19 11:44 75 Intake and Output 06/20/19 06/21/19 19:00 07:00 Intake Total 800 ml Output Total 800 ml Balance 0 ml Intake Oral 800 ml Output Urine Total 800 ml # Voids 3 3 # Bowel Movements 6 7 Laboratory Tests 06/21/19 06:45: White Blood Count 8.8, Red Blood Count 3.01L, Hemoglobin 11.0L, Hematocrit 31.4L , Mean Corpuscular Volume 105H, Mean Corpuscular Hemoglobin 36.7H, Mean Corpuscular Hemoglobin Concent 35.1, Red Cell Distribution Width 11.5L, Platelet Count 113L, Mean Platelet Volume 7.3, Neutrophils (%) (Auto) 65.8, Lymphocytes (%) (Auto) 21.4, Monocytes (%) (Auto) 8.4, Eosinophils (%) (Auto) 3.1H, Basophils (%) (Auto) 1.2, Prothrombin Time 16.1H, Prothromb Time International Ratio 1.5H, Sodium Level 139, Potassium Level 3.6, Chloride Level 109H, Carbon Dioxide Level 18L, Anion Gap 12, Blood Urea Nitrogen 11, Creatinine 1.3, Estimat Glomerular Filtration Rate 55.2, Glucose Level 127H, Calcium Level 8.3L, Total Bilirubin 1.3H, Direct Bilirubin 0.6H, Aspartate Amino Transf (AST/SGOT) 51H, Alanine Aminotransferase (ALT/SGPT) 26, Alkaline Phosphatase 99, Ammonia 65H, Total Protein 6.1L, Albumin 1.9L, Globulin 4.2, Albumin/Globulin Ratio 0.5L, Alpha Fetoprotein [Pending], Vitamin B12 Level 1468H, Hepatitis A IgM Antibody [Pending], Hepatitis B Surface Antigen [Pending] , Hepatitis B Core IgM Antibody [Pending], Hepatitis C Antibody [Pending] Height (Feet): 5 Height (Inches): 8.00 Weight (Pounds): 171 General Appearance: no apparent distress EENT: normal ENT inspection Neck: normal alignment, supple Cardiovascular: normal rate, regular rhythm Respiratory/Chest: lungs clear, normal breath sounds Abdomen: non tender, soft Edema: no edema noted Arm (L), no edema noted Arm (R), no edema noted Leg (L), no edema noted Leg (R), no edema noted Pedal (L), no edema noted Pedal (R), no edema noted Generalized Girish Perry MD Jun 21, 2019 09:54
[2019-06-21] MEDS: Lactulose 20gm/30ml UDC ORAL SCH ×3 (10:00→17:22)
[2019-06-21] MEDS: Thiamine 100mg tab ORAL SCH (10:00)
[2019-06-21] MEDS ORDERED: Guaifenesin/DM 10ml syrup ORAL PRN (10:00)
[2019-06-21] MEDS: Aspirin EC 81mg tab ORAL SCH (10:01)
--- NOTE | 2019-06-21 10:11 | NUR ---
NURSE NOTES: After the first Bolus NS 500cc, 999cc/Hr given, Blood Pressure 83/46 Pulse 84; MD Perry is alberts; another NS 500cc Bolus order given; will keep monitoring.
--- NOTE | 2019-06-21 10:48 | NUR ---
NURSE NOTES: After the second NS 500cc, 999cc/Hr Bolus given, patient's Blood pressure is 84/45 Pulse 89; MD Perry notified; will keep monitoring.
--- NOTE | 2019-06-21 10:55 | General Progress Note ---
Assessment/Plan Assessment/Plan: Assessment - (R) sided colitis - diverticulosis - thickening in (L) colon - cirrhosis with portal HTN - vertebral compression fracture - pulmonary fibrosis Recommendations - continue lactulose - check C diff - pulmonary evaluation - may need eventual colonoscopy Subjective Allergies: Coded Allergies: No Known Allergies (Unverified , 11/01/17) Subjective above noted responsive but slow CT noted: - (R) sided colitis - diverticulosis - thickening in (L) colon - cirrhosis with portal HTN - vertebral compression fracture - pulmonary fibrosis Objective Last 24 Hour Vital Signs Date Time Temp Pulse Resp B/P (MAP) Pulse Ox O2 Delivery O2 Flow Rate FiO2 06/21/19 10:32 97.4 89 20 84/45 (58) 95 89 06/21/19 09:51 97.8 84 20 83/48 (60) 95 84 06/21/19 08:00 98.4 99 20 85/48 (60) 91 99 06/21/19 04:00 98.0 82 18 98/55 (69) 95 06/21/19 01:28 Room Air 06/21/19 00:00 98.4 75 20 91/46 (61) 95 06/20/19 20:18 Room Air 06/20/19 20:00 98.1 74 20 95/73 (80) 94 06/20/19 17:22 102/56 06/20/19 16:00 97.6 76 20 102/56 (71) 94 06/20/19 14:00 97.8 80 20 92/51 (65) 92 06/20/19 12:00 98.4 79 20 98/65 (76) 93 06/20/19 11:44 75 Intake and Output 06/20/19 06/21/19 19:00 07:00 Intake Total 800 ml Output Total 800 ml Balance 0 ml Intake Oral 800 ml Output Urine Total 800 ml # Voids 3 3 # Bowel Movements 6 7 Laboratory Tests 06/21/19 06:45: White Blood Count 8.8, Red Blood Count 3.01L, Hemoglobin 11.0L, Hematocrit 31.4L , Mean Corpuscular Volume 105H, Mean Corpuscular Hemoglobin 36.7H, Mean Corpuscular Hemoglobin Concent 35.1, Red Cell Distribution Width 11.5L, Platelet Count 113L, Mean Platelet Volume 7.3, Neutrophils (%) (Auto) 65.8, Lymphocytes (%) (Auto) 21.4, Monocytes (%) (Auto) 8.4, Eosinophils (%) (Auto) 3.1H, Basophils (%) (Auto) 1.2, Prothrombin Time 16.1H, Prothromb Time International Ratio 1.5H, Sodium Level 139, Potassium Level 3.6, Chloride Level 109H, Carbon Dioxide Level 18L, Anion Gap 12, Blood Urea Nitrogen 11, Creatinine 1.3, Estimat Glomerular Filtration Rate 55.2, Glucose Level 127H, Calcium Level 8.3L, Total Bilirubin 1.3H, Direct Bilirubin 0.6H, Aspartate Amino Transf (AST/SGOT) 51H, Alanine Aminotransferase (ALT/SGPT) 26, Alkaline Phosphatase 99, Ammonia 65H, Total Protein 6.1L, Albumin 1.9L, Globulin 4.2, Albumin/Globulin Ratio 0.5L, Alpha Fetoprotein [Pending], Vitamin B12 Level 1468H, Hepatitis A IgM Antibody [Pending], Hepatitis B Surface Antigen [Pending] , Hepatitis B Core IgM Antibody [Pending], Hepatitis C Antibody [Pending] Height (Feet): 5 Height (Inches): 8.00 Weight (Pounds): 171 Objective WDWN NCAT supple CTA RR Abd soft no edema Laura Toribio MD Jun 21, 2019 10:55
--- NOTE | 2019-06-21 12:17 | NUR ---
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
--- NOTE | 2019-06-21 13:00 | Pulmonology Progress Note ---
Assessment/Plan Assessment/Plan IMPRESSION: 1. Altered mental status, likely secondary to medication use. 2. Psych disorder. 3. Aspiration risk. DISCUSSION: Currently, the patient is more awake and responsive. Suggest a bedside nursing swallow eval. Continue medications and care. Psychiatric consult noted. I will follow. Juan Catalan M.D. Subjective Interval Events: None new Constitutional: Reports: no symptoms HEENT: Repors: no symptoms Respiratory: Reports: no symptoms Cardiovascular: Reports: no symptoms Gastrointestinal/Abdominal: Reports: no symptoms Genitourinary: Reports: no symptoms Allergies: Coded Allergies: No Known Allergies (Unverified , 11/01/17) Objective Last 24 Hour Vital Signs Date Time Temp Pulse Resp B/P (MAP) Pulse Ox O2 Delivery O2 Flow Rate FiO2 06/21/19 10:32 97.4 89 20 84/45 (58) 95 89 06/21/19 09:51 97.8 84 20 83/48 (60) 95 84 06/21/19 09:00 Room Air 06/21/19 08:00 98.4 99 20 85/48 (60) 91 99 06/21/19 04:00 98.0 82 18 98/55 (69) 95 06/21/19 01:28 Room Air 06/21/19 00:00 98.4 75 20 91/46 (61) 95 06/20/19 20:18 Room Air 06/20/19 20:00 98.1 74 20 95/73 (80) 94 06/20/19 17:22 102/56 06/20/19 16:00 97.6 76 20 102/56 (71) 94 06/20/19 14:00 97.8 80 20 92/51 (65) 92 Intake and Output 06/20/19 06/21/19 19:00 07:00 Intake Total 800 ml 100 ml Output Total 800 ml Balance 0 ml 100 ml Intake Oral 800 ml IV Total 100 ml Output Urine Total 800 ml # Voids 3 3 # Bowel Movements 6 7 General Appearance: no acute distress HEENT: normocephalic Respiratory/Chest: chest wall non-tender, lungs clear Cardiovascular: normal peripheral pulses, normal rate Abdomen: normal bowel sounds Laboratory Tests 06/21/19 06:45: White Blood Count 8.8, Red Blood Count 3.01L, Hemoglobin 11.0L, Hematocrit 31.4L , Mean Corpuscular Volume 105H, Mean Corpuscular Hemoglobin 36.7H, Mean Corpuscular Hemoglobin Concent 35.1, Red Cell Distribution Width 11.5L, Platelet Count 113L, Mean Platelet Volume 7.3, Neutrophils (%) (Auto) 65.8, Lymphocytes (%) (Auto) 21.4, Monocytes (%) (Auto) 8.4, Eosinophils (%) (Auto) 3.1H, Basophils (%) (Auto) 1.2, Prothrombin Time 16.1H, Prothromb Time International Ratio 1.5H, Sodium Level 139, Potassium Level 3.6, Chloride Level 109H, Carbon Dioxide Level 18L, Anion Gap 12, Blood Urea Nitrogen 11, Creatinine 1.3, Estimat Glomerular Filtration Rate 55.2, Glucose Level 127H, Calcium Level 8.3L, Total Bilirubin 1.3H, Direct Bilirubin 0.6H, Aspartate Amino Transf (AST/SGOT) 51H, Alanine Aminotransferase (ALT/SGPT) 26, Alkaline Phosphatase 99, Ammonia 65H, Total Protein 6.1L, Albumin 1.9L, Globulin 4.2, Albumin/Globulin Ratio 0.5L, Alpha Fetoprotein [Pending], Vitamin B12 Level 1468H, Hepatitis A IgM Antibody [Pending], Hepatitis B Surface Antigen [Pending] , Hepatitis B Core IgM Antibody [Pending], Hepatitis C Antibody [Pending] Current Medications Medications (Trade) Dose Ordered Sig/Ceasar Route PRN Reason Start Time Stop Time Status Last Admin Dose Admin Aspirin (Ecotrin) 81 mg DAILY ORAL 06/21/19 09:00 07/20/19 08:59 06/21/19 10:01 Barium Sulfate (Readi-Cat 2) 450 ml NOW PRN ORAL Radiology Procedure 06/21/19 08:00 06/22/19 07:54 Dextrose (Dextrose 50%) 25 ml Q30M PRN IV Hypoglycemia 06/20/19 14:30 07/19/19 21:29 Dextrose (Dextrose 50%) 50 ml Q30M PRN IV Hypoglycemia 06/20/19 14:30 07/19/19 21:29 Famotidine (Pepcid) 40 mg DAILY ORAL 06/21/19 09:00 07/20/19 08:59 06/21/19 10:00 Folic Acid (Folate) 1 mg DAILY ORAL 06/21/19 09:00 07/20/19 08:59 06/21/19 10:01 Guaifenesin/ Dextromethorphan (Robitussin DM Syrup) 10 ml Q4H PRN ORAL For Cough 06/21/19 10:00 07/21/19 09:59 06/21/19 12:43 Insulin Aspart (NovoLOG) BEFORE MEALS AND HS SUBQ 06/20/19 16:30 07/20/19 06:29 06/21/19 12:43 Iohexol (OMNIPAQUE-300 100ml) 100 ml NOW PRN INJ Radiology Procedure 06/21/19 08:00 06/22/19 07:54 Lactulose (Cephulac) 20 gm TID ORAL 06/20/19 18:00 07/20/19 08:59 06/21/19 12:43 Lorazepam (Ativan 2mg/ml 1ml) 1 mg Q3H PRN IV For Anxiety 06/20/19 14:00 06/27/19 13:59 Multivitamins (Multivitamins) 1 tab DAILY ORAL 06/21/19 09:00 07/20/19 08:59 06/21/19 10:01 Risperidone (RisperDAL) 0.5 mg BEDTIME ORAL 06/20/19 21:00 07/20/19 20:59 06/20/19 20:24 Sodium Chloride 1,000 ml @ 100 mls/hr Q10H IV 06/20/19 14:15 07/19/19 21:44 06/21/19 03:54 Tamsulosin HCl (Flomax) 0.4 mg BEDTIME ORAL 06/20/19 21:00 07/20/19 20:59 06/20/19 20:25 Thiamine HCl (Vitamin B1) 100 mg DAILY ORAL 06/21/19 09:00 07/20/19 08:59 06/21/19 10:00 Juan Catalan MD Jun 21, 2019 13:00
--- NOTE | 2019-06-21 19:29 | NUR ---
NURSE NOTES: Patient is in bed, awake and alert x2. No signs of distress or SOB. Right FA IV in place and running NS @100. Bed locked and in lowest position. Call light in easy reach. Will continue to monitor.
--- NOTE | 2019-06-21 19:48 | NUR ---
HAND-OFF: Report given to MEG García.
[2019-06-21] MEDS: Tamsulosin 0.4mg cap ORAL SCH (20:22)
[2019-06-22] VITALS (7 sets, daily range): BP systolic 100–126; BP diastolic 56–72
[2019-06-22] MEDS: NovoLOG Insulin Flexpen SUBQ SCH ×4 (06:23→21:00)
--- NOTE | 2019-06-22 08:03 | NUR ---
HAND-OFF: Report given to MEG Hernandez.
--- NOTE | 2019-06-22 08:05 | NUR ---
NURSE NOTES: Received patient in bed. No SOB or cardiac distress. With O2 via NC at 2LPM. IV line intact and patent, no s/s of infiltration. Will continue plan of care.
--- NOTE | 2019-06-22 08:12 | Nephrology Progress Note ---
Assessment/Plan Assessment/Plan: A/P 1) Encephalopathy- hepatic in nature. Resolved - continue lactulose 2) Hepatic Dysfunction- appreciate GI evaluation 3) Hypotension- DC IVFs 4) FINA - resolving. Cr stable 1.2 5) PSY DO- per Dr Johnson Patient improved. DC once cleared by GI Subjective Date patient seen: Jun 22, 2019 Time patient seen: 08:08 ROS Limited/Unobtainable: No Allergies: Coded Allergies: No Known Allergies (Unverified , 11/01/17) Subjective Patient resting, calmer. No overt distress Objective Last 24 Hour Vital Signs Date Time Temp Pulse Resp B/P (MAP) Pulse Ox O2 Delivery O2 Flow Rate FiO2 06/22/19 04:00 98.4 90 22 108/65 (79) 94 90 06/22/19 00:00 98.0 84 20 108/67 (81) 94 84 06/21/19 20:02 Room Air 06/21/19 20:00 98.4 88 21 99/62 (74) 94 88 06/21/19 16:00 98.0 63 18 108/57 (74) 93 63 06/21/19 12:00 97.0 88 18 102/57 (72) 95 88 06/21/19 10:32 97.4 89 20 84/45 (58) 95 89 06/21/19 09:51 97.8 84 20 83/48 (60) 95 84 06/21/19 09:00 Room Air Intake and Output 06/21/19 06/22/19 19:00 07:00 Intake Total 1580 ml 740 ml Balance 1580 ml 740 ml Intake Oral 680 ml 240 ml IV Total 900 ml 500 ml # Voids 6 1 # Bowel Movements 5 4 Height (Feet): 5 Height (Inches): 8.00 Weight (Pounds): 171 General Appearance: no apparent distress, alert EENT: normal ENT inspection Neck: normal alignment, supple Cardiovascular: normal rate, regular rhythm Respiratory/Chest: lungs clear, normal breath sounds Abdomen: non tender, soft Edema: no edema noted Arm (L), no edema noted Arm (R), no edema noted Leg (L), no edema noted Leg (R), no edema noted Pedal (L), no edema noted Pedal (R), no edema noted Generalized Girish Perry MD Jun 22, 2019 08:12
--- NOTE | 2019-06-22 08:22 | General Progress Note ---
Assessment/Plan Assessment/Plan: Assessment - (R) sided colitis --> need to check C Diff - diverticulosis - thickening in (L) colon --> need to discuss with next of kin re possible GI w /u - cirrhosis with portal HTN - vertebral compression fracture - pulmonary fibrosis Recommendations - continue lactulose - check C diff - pulmonary evaluation - may need eventual colonoscopy - trying to locate next of kin - will ask [employer] to help Subjective Allergies: Coded Allergies: No Known Allergies (Unverified , 11/01/17) Subjective above noted responsive but slow and confused CT noted: - (R) sided colitis - diverticulosis - thickening in (L) colon - cirrhosis with portal HTN - vertebral compression fracture - pulmonary fibrosis Objective Last 24 Hour Vital Signs Date Time Temp Pulse Resp B/P (MAP) Pulse Ox O2 Delivery O2 Flow Rate FiO2 06/22/19 04:00 98.4 90 22 108/65 (79) 94 90 06/22/19 00:00 98.0 84 20 108/67 (81) 94 84 06/21/19 20:02 Room Air 06/21/19 20:00 98.4 88 21 99/62 (74) 94 88 06/21/19 16:00 98.0 63 18 108/57 (74) 93 63 06/21/19 12:00 97.0 88 18 102/57 (72) 95 88 06/21/19 10:32 97.4 89 20 84/45 (58) 95 89 06/21/19 09:51 97.8 84 20 83/48 (60) 95 84 06/21/19 09:00 Room Air Intake and Output 06/21/19 06/22/19 19:00 07:00 Intake Total 1580 ml 740 ml Balance 1580 ml 740 ml Intake Oral 680 ml 240 ml IV Total 900 ml 500 ml # Voids 6 1 # Bowel Movements 5 4 Height (Feet): 5 Height (Inches): 8.00 Weight (Pounds): 171 Objective WDWN NCAT supple CTA RR Abd soft no edema Laura Toribio MD Jun 22, 2019 08:22
--- NOTE | 2019-06-22 08:30 | NUR ---
NURSE NOTES: Patient with increased respiration, maintained on O2. Noted with loose stool.
[2019-06-22] MEDS: Aspirin EC 81mg tab ORAL SCH (09:23)
[2019-06-22] MEDS: Lactulose 20gm/30ml UDC ORAL SCH ×3 (09:23→17:26)
[2019-06-22] MEDS: Thiamine 100mg tab ORAL SCH (09:23)
--- NOTE | 2019-06-22 10:46 | Pulmonology Progress Note ---
Assessment/Plan Assessment/Plan IMPRESSION: 1. Altered mental status, likely secondary to medication use. 2. Psych disorder. 3. Aspiration risk. DISCUSSION: Currently, the patient is more awake and responsive. Continue medications and care. Psychiatric consult noted. I will follow. Juan Catalan M.D. Subjective Interval Events: None new Constitutional: Reports: no symptoms HEENT: Repors: no symptoms Respiratory: Reports: no symptoms Cardiovascular: Reports: no symptoms Gastrointestinal/Abdominal: Reports: no symptoms Genitourinary: Reports: no symptoms Neurologic: Reports: no symptoms Allergies: Coded Allergies: No Known Allergies (Unverified , 11/01/17) Objective Last 24 Hour Vital Signs Date Time Temp Pulse Resp B/P (MAP) Pulse Ox O2 Delivery O2 Flow Rate FiO2 06/22/19 08:00 97.2 122 22 126/72 (90) 93 122 06/22/19 04:00 98.4 90 22 108/65 (79) 94 90 06/22/19 00:00 98.0 84 20 108/67 (81) 94 84 06/21/19 20:02 Room Air 06/21/19 20:00 98.4 88 21 99/62 (74) 94 88 06/21/19 16:00 98.0 63 18 108/57 (74) 93 63 06/21/19 12:00 97.0 88 18 102/57 (72) 95 88 Intake and Output 06/21/19 06/22/19 19:00 07:00 Intake Total 1580 ml 740 ml Balance 1580 ml 740 ml Intake Oral 680 ml 240 ml IV Total 900 ml 500 ml # Voids 6 1 # Bowel Movements 5 4 General Appearance: no acute distress HEENT: normocephalic Respiratory/Chest: chest wall non-tender, lungs clear Cardiovascular: normal peripheral pulses Abdomen: normal bowel sounds Current Medications Medications (Trade) Dose Ordered Sig/Ceasar Route PRN Reason Start Time Stop Time Status Last Admin Dose Admin Aspirin (Ecotrin) 81 mg DAILY ORAL 06/21/19 09:00 07/20/19 08:59 06/22/19 09:23 Dextrose (Dextrose 50%) 25 ml Q30M PRN IV Hypoglycemia 06/20/19 14:30 07/19/19 21:29 Dextrose (Dextrose 50%) 50 ml Q30M PRN IV Hypoglycemia 06/20/19 14:30 07/19/19 21:29 Famotidine (Pepcid) 40 mg DAILY ORAL 06/21/19 09:00 07/20/19 08:59 06/22/19 09:23 Folic Acid (Folate) 1 mg DAILY ORAL 06/21/19 09:00 07/20/19 08:59 06/22/19 09:23 Guaifenesin/ Dextromethorphan (Robitussin DM Syrup) 10 ml Q4H PRN ORAL For Cough 06/21/19 10:00 07/21/19 09:59 06/21/19 12:43 Insulin Aspart (NovoLOG) BEFORE MEALS AND HS SUBQ 06/20/19 16:30 07/20/19 06:29 06/22/19 06:23 Lactulose (Cephulac) 20 gm TID ORAL 06/20/19 18:00 07/20/19 08:59 06/22/19 09:23 Lorazepam (Ativan 2mg/ml 1ml) 1 mg Q3H PRN IV For Anxiety 06/20/19 14:00 06/27/19 13:59 Multivitamins (Multivitamins) 1 tab DAILY ORAL 06/21/19 09:00 07/20/19 08:59 06/22/19 09:23 Risperidone (RisperDAL) 0.5 mg BEDTIME ORAL 06/20/19 21:00 07/20/19 20:59 06/21/19 20:23 Tamsulosin HCl (Flomax) 0.4 mg BEDTIME ORAL 06/20/19 21:00 07/20/19 20:59 06/21/19 20:22 Thiamine HCl (Vitamin B1) 100 mg DAILY ORAL 06/21/19 09:00 07/20/19 08:59 06/22/19 09:23 Juan Catalan MD Jun 22, 2019 10:46
--- NOTE | 2019-06-22 11:33 | NUR ---
NURSE NOTES: Patient noted with temp of 101.8F and HR of 125. Dr. Perry made aware, awaiting orders. Cooling measures done.
--- NOTE | 2019-06-22 12:42 | Consultation ---
History of Present Illness General Date patient seen: Jun 22, 2019 Chief Complaint: Altered Mental Status Present Illness HPI 68 y/o M with hx of bipolar disorder, pulmonary fibrosis, HLD, HTN, BPH, PUD, seizure disorder, opiate dependance, DM2, GIB presented to ED on 06/19 with lethargy, cough, SOB Denied abd pain, n./v/d Allergies: Coded Allergies: No Known Allergies (Unverified , 11/01/17) Medication History Scheduled Acetaminophen With Codeine (T#3) (Tylenol #3 Tab*), 1 TAB ORAL EVERY 6 HOURS, ( Reported) Aripiprazole* (Abilify*), 20 MG ORAL DAILY, (Reported) Aspirin* (Aspir 81*), 81 MG ORAL DAILY, (Reported) Atorvastatin Calcium* (Atorvastatin Calcium*), 40 MG ORAL BEDTIME, (Reported) Cholecalciferol (Vitamin D3)* (Vitamin D*), 1,000 UNIT ORAL DAILY, (Reported) Lisinopril (Lisinopril*), 20 MG ORAL DAILY, (Reported) Metformin Hcl* (Metformin Hcl*), 1,000 MG ORAL DAILY, (Reported) Multivitamins* (Multivitamins*), 1 TAB ORAL DAILY, (Reported) Tamsulosin Hcl (Tamsulosin Hcl*), 0.4 MG ORAL BEDTIME, (Reported) [androgel 1.62 %], 1.62 % TP DAILY, (Reported) Scheduled PRN Acetaminophen With Codeine (T#3) (Tylenol #3 Tab*), 1 TAB ORAL EVERY 6 HOURS PRN for For Pain, (Reported) Loratadine (Loratadine), 10 MG PO DAILY PRN for sneezing, (Reported) Miscellaneous Medications Benzonatate (Benzonatate), 100 MG PO, (Reported) Unable to Obtain Medications (Unable To Obtain Meds), (Reported) Patient History Healthcare decision maker Resuscitation status Full Code Advanced Directive on File Patient History Narrative Pmhx: as above Shx: The patient is and states that his wants to get divorce from him. He does not have any children. He drinks 2 glasses of wine a day. He does not smoke. documented opiate abuse in the past Fhx: non contributory Physical Exam Physical Exam Narrative GENERAL: The patient is awake, alert, mildly confused, and disoriented. HEENT: Extraocular muscles intact. No lymphadenopathy noted. CARDIOVASCULAR: S1, S2. No rubs or gallops. PULMONARY: Clear to auscultation bilaterally. No rales, rhonchi, or wheezes. ABDOMEN: Nondistended and nontender. EXTREMITIES: No edema. Last 24 Hour Vital Signs Date Time Temp Pulse Resp B/P (MAP) Pulse Ox O2 Delivery O2 Flow Rate FiO2 06/22/19 12:00 101.8 125 24 118/57 (77) 93 125 06/22/19 09:00 Nasal Cannula 2.0 06/22/19 08:00 97.2 122 22 126/72 (90) 93 122 06/22/19 04:00 98.4 90 22 108/65 (79) 94 90 06/22/19 00:00 98.0 84 20 108/67 (81) 94 84 06/21/19 20:02 Room Air 06/21/19 20:00 98.4 88 21 99/62 (74) 94 88 06/21/19 16:00 98.0 63 18 108/57 (74) 93 63 Intake and Output 06/21/19 06/22/19 19:00 07:00 Intake Total 1580 ml 740 ml Balance 1580 ml 740 ml Intake Oral 680 ml 240 ml IV Total 900 ml 500 ml # Voids 6 1 # Bowel Movements 5 4 Height (Feet): 5 Height (Inches): 8.00 Weight (Pounds): 171 Medications Current Medications Medications (Trade) Dose Ordered Sig/Ceasar Route PRN Reason Start Time Stop Time Status Last Admin Dose Admin Aspirin (Ecotrin) 81 mg DAILY ORAL 06/21/19 09:00 07/20/19 08:59 06/22/19 09:23 Dextrose (Dextrose 50%) 25 ml Q30M PRN IV Hypoglycemia 06/20/19 14:30 07/19/19 21:29 Dextrose (Dextrose 50%) 50 ml Q30M PRN IV Hypoglycemia 06/20/19 14:30 07/19/19 21:29 Famotidine (Pepcid) 40 mg DAILY ORAL 06/21/19 09:00 07/20/19 08:59 06/22/19 09:23 Folic Acid (Folate) 1 mg DAILY ORAL 06/21/19 09:00 07/20/19 08:59 06/22/19 09:23 Guaifenesin/ Dextromethorphan (Robitussin DM Syrup) 10 ml Q4H PRN ORAL For Cough 06/21/19 10:00 07/21/19 09:59 06/21/19 12:43 Insulin Aspart (NovoLOG) BEFORE MEALS AND HS SUBQ 06/20/19 16:30 07/20/19 06:29 06/22/19 11:42 Lactulose (Cephulac) 20 gm TID ORAL 06/20/19 18:00 07/20/19 08:59 06/22/19 09:23 Lorazepam (Ativan 2mg/ml 1ml) 1 mg Q3H PRN IV For Anxiety 06/20/19 14:00 06/27/19 13:59 Multivitamins (Multivitamins) 1 tab DAILY ORAL 06/21/19 09:00 07/20/19 08:59 06/22/19 09:23 Piperacillin Sod/ Tazobactam Sod 3.375 gm/Sodium Chloride 110 ml @ 27.5 mls/hr EVERY 8 HOURS IVPB 06/22/19 14:00 06/27/19 13:59 Risperidone (RisperDAL) 0.5 mg BEDTIME ORAL 06/20/19 21:00 07/20/19 20:59 06/21/19 20:23 Tamsulosin HCl (Flomax) 0.4 mg BEDTIME ORAL 06/20/19 21:00 07/20/19 20:59 06/21/19 20:22 Thiamine HCl (Vitamin B1) 100 mg DAILY ORAL 06/21/19 09:00 07/20/19 08:59 06/22/19 09:23 Assessment/Plan Assessment/Plan: Abx: Zosyn 06/22 Assessment: Sepsis (not present on admission)- r/o aspiration PNA, UTI, bacteremia -06/19 u/a neg CXR: Correlate cardiomegaly. Suspect bilateral interstitial edema FEver No leukocytosis Acute encephalopathy -CT head: Mild age-related volume loss. Negative for acute intracranial bleed or mass effect. Colitis AST and Tbili elevation/ Cirrhosis on CT -acute hep panel neg -CT abd/p: Marked wall thickening of the ascending colon and proximal transverse colon with associated edema of the pericolonic fat. This is consistent with colitis,nonspecific as regards etiology. Colonic diverticulosis. Wall thickening of the mid sigmoid is noted, probably represents circular muscle hypertrophy related to such. However, the possibility of a sigmoid neoplasm in this location should also be considered. Evidence of hepatic cirrhosis, with hepatic surface nodularity. Evidence of portal hypertension, with ascites, perisplenic perigastric and periesophageal varices, mild splenomegaly. Distended gallbladder without definite gallstones. Gallbladder wall thickening and edema is probably related to the hepatocellular abnormality, but the possibility of acute cholecystitis either due to occult stone disease or acalculous should also be considered. Extensive pulmonary parenchymal disease, as described. Mostly if not exclusively due to end-stage pulmonary fibrosis. Confluent opacities in the right lung probably represent confluent scarring, but could also represent areas of acute infiltrate. T9 vertebral body compression fracture deformity, with approximately 60% height loss, to indeterminate but progressive since a thoracic spine CT of 11/02/2017. Fusiform ectasia of the bilateral common iliac arteries bipolar disorder pulmonary fibrosis HLD HTN BPH PUD seizure disorder hx of opiate dependance DM2 hx of GIB Plan: -Continue empiric ZOsyn #1 -f/u cx -Monitor CBC/CMP, temperatures -Abd US -U/a w/ reflex, CXR, Bcx x2, influenza sc, cdiff, stool cx -aspiration precautions -GI f/u Thank you for this consultation. Will continue to follow along with you. Discussed with Nelly Galindo M.D. Jun 22, 2019 12:42
--- NOTE | 2019-06-22 13:26 | NUR ---
Social Work This Sw received a consult to assist with locating family. This SW spoke with patient who explains he does not have any other family, but lives with his . This SW left a message with spouse, Meagan @ [phone]. Awaiting call return at this time.
--- NOTE | 2019-06-22 13:40 | NUR ---
NURSE NOTES: Patient for transfer to telemetry as ordered. Belongings check done, no new skin issues noted. at the bedside. Transported with NC at 2LPM connected to O2 tank. Awaiting orders for fever. Cooling measures continued.
--- NOTE | 2019-06-22 13:42 | NUR ---
HAND-OFF: Report given to Meredith.
[2019-06-22] MEDS ORDERED: Piperacillin/Tazobactam 3.375 GM in NS 110 ML IVPB SCH (14:00)
--- NOTE | 2019-06-22 14:00 | NUR ---
NURSE NOTES: Received report from MEG Hernandez on 4E. Pt transferred to 210-2. Vitals obtained, and sent to Dr. Perry, no temp 98.6, HR 100, BP 100/56. asked for cardiology consult. Pt is A/O X3, talkative, c/o diarrhea, SOB. Place pt back on 2L NC. Pt has pending abd US and will be NPO for the rest of the day. Orders will be transferred. Bed in lowest position, call light within reach, phototypesetting equipment monitor on, at bedside. Addendum: 06/22/19 at 1817 by BRENDON GOODE RN NURSE NOTES: Dr. Perry did not want to order a cardiology consult for this patient
[2019-06-22] MEDS ORDERED: Guaifenesin/DM 10ml syrup ORAL PRN (14:44)
[2019-06-22] MEDS ORDERED: LORazepam Inj 2mg/ml 1ml IV PRN (14:45)
--- NOTE | 2019-06-22 15:39 | Diagnostic Imaging Report ---
Indication: Cough Technique: One view of the chest Comparison: 06/19/2019 Findings: There is bilateral interstitial edema, which is increased since prior study. There are probably small bilateral pleural effusions. The heart is enlarged. Impression: Bilateral interstitial edema, increased since prior study of 06/19/2019
--- NOTE | 2019-06-22 19:37 | NUR ---
HAND-OFF: Report given to MEG Magdaleno endorsed plan of care.
--- NOTE | 2019-06-22 19:40 | NUR ---
NURSE NOTES: Received report from Karan Yuen RN. Patient in bed asleep with no S/S of acute pain or discomfort noted. Kept clean, dry, and comfortable in bed. Placed on 2L NC with no episodes of SOB or resp. distress observed. On continuous cardiac monitoring per protocol, IV line intact and patent SL. Able to use bedside commode with staff assistance. Safety preaution in place; siderails X3 up and padded, call light within reach, bed in lowest position and free fro clutter, brakes and alarm on at all times, and suction equipment available at bedside. Needs and wants anticipated and attended, will continue plan of care and monitor for any changes noted.
[2019-06-22] MEDS ORDERED: Tamsulosin 0.4mg cap ORAL SCH (21:00)
[2019-06-22] MEDS: Piperacillin/Tazobactam 3.375 GM in NS 110 ML IVPB SCH (22:00)
[2019-06-23] VITALS (9 sets, daily range): BP systolic 76–105; BP diastolic 36–63
--- NOTE | 2019-06-23 04:00 | NUR ---
NURSE NOTES: Patient in bed asleep with no S/S of distress noted. Will continue to monitor.
[2019-06-23] MEDS: NovoLOG Insulin Flexpen SUBQ SCH ×4 (06:09→21:00)
[2019-06-23] MEDS: Piperacillin/Tazobactam 3.375 GM in NS 110 ML IVPB SCH ×3 (06:27→21:13)
--- NOTE | 2019-06-23 07:05 | NUR ---
NURSE NOTES: Received report from MEG Magdaleno. Pt in bed, talkative, asking to stay go back to sleep, pt does not state any pain at this time, no apparent distress noted, bed in lowest position, call light within reach.
--- NOTE | 2019-06-23 07:10 | NUR ---
HAND-OFF: Report given to Karan Yuen RN. Patient in bed with no S/S of distress. Endorsed plan of care.
--- NOTE | 2019-06-23 07:11 | Pulmonology Progress Note ---
Assessment/Plan Assessment/Plan IMPRESSION: 1. Altered mental status, likely secondary to medication use. 2. Psych disorder. 3. Aspiration risk. DISCUSSION: Currently, the patient is more awake and responsive. Continue medications and care. Psychiatric consult noted. I will follow. Juan Catalan M.D. Subjective Interval Events: None new reported Constitutional: Reports: no symptoms HEENT: Repors: no symptoms Respiratory: Reports: no symptoms Cardiovascular: Reports: no symptoms Gastrointestinal/Abdominal: Reports: no symptoms Genitourinary: Reports: no symptoms Allergies: Coded Allergies: No Known Allergies (Unverified , 11/01/17) Objective Last 24 Hour Vital Signs Date Time Temp Pulse Resp B/P (MAP) Pulse Ox O2 Delivery O2 Flow Rate FiO2 06/23/19 04:00 85 06/23/19 04:00 98.0 80 20 98/54 (69) 92 06/23/19 00:00 98.3 85 22 102/63 (76) 94 06/23/19 00:00 96 06/22/19 21:00 Nasal Cannula 2.0 06/22/19 20:00 80 06/22/19 20:00 98.3 88 24 104/67 (79) 94 06/22/19 16:18 98.6 95 22 100/56 (71) 94 06/22/19 16:03 96 06/22/19 14:15 98.6 100 24 100/56 (71) 98 06/22/19 12:00 101.8 125 24 118/57 (77) 93 125 06/22/19 09:00 Nasal Cannula 2.0 06/22/19 08:00 97.2 122 22 126/72 (90) 93 122 Intake and Output 06/22/19 06/23/19 19:00 07:00 Intake Total 30 ml 3030 ml Output Total 500 ml Balance 30 ml 2530 ml Intake Oral 30 ml 30 ml IV Total 3000 ml Output Urine Total 500 ml # Voids 3 3 # Bowel Movements 3 2 General Appearance: no acute distress HEENT: normocephalic Respiratory/Chest: chest wall non-tender, lungs clear Cardiovascular: normal peripheral pulses, normal rate Abdomen: normal bowel sounds Laboratory Tests 06/22/19 16:50: Stool Occult Blood [Pending] 06/23/19 06:36: White Blood Count [Pending], Red Blood Count [Pending], Hemoglobin [Pending], Hematocrit [Pending], Mean Corpuscular Volume [Pending], Mean Corpuscular Hemoglobin [Pending], Mean Corpuscular Hemoglobin Concent [Pending], Red Cell Distribution Width [Pending], Platelet Count [Pending], Mean Platelet Volume [ Pending], Neutrophils (%) (Auto) [Pending], Lymphocytes (%) (Auto) [Pending], Monocytes (%) (Auto) [Pending], Eosinophils (%) (Auto) [Pending], Basophils (%) (Auto) [Pending], Sodium Level [Pending], Potassium Level [Pending], Chloride Level [Pending], Carbon Dioxide Level [Pending], Blood Urea Nitrogen [Pending], Creatinine [Pending], Estimat Glomerular Filtration Rate [Pending], Glucose Level [Pending], Lactic Acid Level [Pending], Calcium Level [Pending], Iron Level [Pending], Unsaturated Iron Binding [Pending], Total Bilirubin [Pending], Aspartate Amino Transf (AST/SGOT) [Pending], Alanine Aminotransferase (ALT/SGPT ) [Pending], Alkaline Phosphatase [Pending], Ammonia [Pending], Total Protein [ Pending], Albumin [Pending], Globulin [Pending], HIV (1&2) Antibody Rapid [ Pending] Current Medications Medications (Trade) Dose Ordered Sig/Ceasar Route PRN Reason Start Time Stop Time Status Last Admin Dose Admin Aspirin (Ecotrin) 81 mg DAILY ORAL 06/23/19 09:00 07/20/19 08:59 Dextrose (Dextrose 50%) 25 ml Q30M PRN IV Hypoglycemia 06/22/19 15:00 07/19/19 21:29 Dextrose (Dextrose 50%) 50 ml Q30M PRN IV Hypoglycemia 06/22/19 15:00 07/19/19 21:29 Famotidine (Pepcid) 40 mg DAILY ORAL 06/23/19 09:00 07/20/19 08:59 Folic Acid (Folate) 1 mg DAILY ORAL 06/23/19 09:00 07/20/19 08:59 Guaifenesin/ Dextromethorphan (Robitussin DM Syrup) 10 ml Q4H PRN ORAL For Cough 06/22/19 14:44 07/22/19 14:43 Ibuprofen (Advil) 200 mg TIDPRN PRN ORAL Mild Pain/Temp > 100.5 06/22/19 15:00 07/22/19 14:59 Insulin Aspart (NovoLOG) BEFORE MEALS AND HS SUBQ 06/22/19 16:30 07/20/19 06:29 06/22/19 17:28 Lactulose (Cephulac) 20 gm TID ORAL 06/22/19 18:00 07/20/19 08:59 06/22/19 17:26 Lorazepam (Ativan 2mg/ml 1ml) 1 mg Q3H PRN IV For Anxiety 06/22/19 14:45 06/29/19 14:44 Multivitamins (Multivitamins) 1 tab DAILY ORAL 06/23/19 09:00 07/20/19 08:59 Piperacillin Sod/ Tazobactam Sod 3.375 gm/Sodium Chloride 110 ml @ 27.5 mls/hr EVERY 8 HOURS IVPB 06/22/19 22:00 06/27/19 21:59 06/23/19 06:27 Risperidone (RisperDAL) 0.5 mg BEDTIME ORAL 06/22/19 21:00 07/20/19 20:59 06/22/19 21:59 Tamsulosin HCl (Flomax) 0.4 mg BEDTIME ORAL 06/22/19 21:00 07/20/19 20:59 06/22/19 21:59 Thiamine HCl (Vitamin B1) 100 mg DAILY ORAL 06/23/19 09:00 07/20/19 08:59 Juan Catalan MD Jun 23, 2019 07:11
[2019-06-23 07:39] LABS: HEMATOCRIT 29.8 % (42.0-52.0); HEMOGLOBIN 10.3 G/DL (14.2-18.0); MEAN CORPUSCULAR VOLUME 106 FL (80-99); PLATELET COUNT 90 K/UL (150-450); RED BLOOD COUNT 2.82 M/UL (4.70-6.10); RED CELL DISTRIBUTION WIDTH 12.1 % (11.6-14.8); WHITE BLOOD COUNT 12.8 K/UL (4.8-10.8)
[2019-06-23 07:56] LABS: ALANINE AMINOTRANSFERASE 25 U/L (12-78); ALBUMIN 1.8 G/DL (3.4-5.0); ALBUMIN/GLOBULIN RATIO 0.4 (1.0-2.7); ALKALINE PHOSPHATASE 96 U/L (46-116); ANION GAP 7 mmol/L (5-15); ASPARTATE AMINO TRANSFERASE 48 U/L (15-37); BILIRUBIN,TOTAL 1.3 MG/DL (0.2-1.0); BLOOD UREA NITROGEN 13 mg/dL (7-18); CARBON DIOXIDE 18 MMOL/L (21-32); CHLORIDE 110 MMOL/L (98-107); CREATININE 1.4 MG/DL (0.55-1.30); POTASSIUM 3.5 MMOL/L (3.5-5.1); SODIUM 135 MMOL/L (136-145)
[2019-06-23 07:58] LABS: BILIRUBIN,DIRECT 0.5 MG/DL (0.0-0.3)
[2019-06-23 08:06] LABS: % IRON SATURATION 13 % (15-50); IRON 30 ug/dL (50-175); TOTAL IRON BINDING CAPACITY 234 ug/dL (250-450)
[2019-06-23 08:11] LABS: AMMONIA 63 umol/L (11-32)
--- NOTE | 2019-06-23 08:32 | NUR ---
NURSE NOTES: Notified Dr. Moore WBC at 12.8
[2019-06-23] MEDS ORDERED: Aspirin EC 81mg tab ORAL SCH (09:00)
[2019-06-23] MEDS ORDERED: Thiamine 100mg tab ORAL SCH (09:00)
[2019-06-23] MEDS: Lactulose 20gm/30ml UDC ORAL SCH ×3 (10:01→17:40)
--- NOTE | 2019-06-23 10:48 | Diagnostic Imaging Report ---
Indication: Abdominal pain Technique: Greenwood-scale and duplex images of the upper abdomen were obtained Comparison: No comparison sonograms. Reference made to abdomen pelvis CT dated 06/20/2019 Findings: Exam is somewhat limited due to patient body habitus and bowel distention. Fluid-filled tubular structures deep to the umbilicus presumably represent fluid-filled small bowel. Gallbladder is unremarkable, without stones, wall thickening, nor pericholecystic fluid. Sonographic Galaviz's sign is negative. Common bile duct measures 2 mm in diameter. No intrahepatic biliary ductal dilatation. Liver demonstrates normal echogenicity. There is slight surface nodularity demonstrated. Portal vein and hepatic veins are patent. Pancreas is unremarkable. Spleen measures upper limits normal in size, 12.3 cm, described on prior CT to be enlarged Left kidney measures 11 point cm in length. Right kidney measures 12.3 cm length. Both kidneys demonstrate normal echogenicity. There is no hydronephrosis. Echogenic focus at the periphery of the left renal sinus probably represents prominent renal sinus fat, as no calculi are noted in this area recent CT scan . Non-aneurysmal abdominal aorta . Impression: Limited exam, as described Negative for gallstones or dilated bile ducts Hepatic surface nodularity, also described on recent CT scan, consistent with early cirrhotic change Upper limits normal size spleen
--- NOTE | 2019-06-23 11:54 | Nephrology Progress Note ---
Assessment/Plan Assessment/Plan: A/P 1) Encephalopathy- hepatic in nature. Resolved - continue lactulose for now 2) Hepatic Dysfunction- appreciate GI evaluation 3) Hypotension- Fluid bolus. Transfer to [facility] and start IV pressors if needed 4) FINA - Cr 1.4. Monitor as patient hypotensive 5)) Sepsis- cxs pending on Abx. Appreciate ID. Cardiology to evaluate Subjective Date patient seen: Jun 23, 2019 Time patient seen: 11:52 ROS Limited/Unobtainable: No Allergies: Coded Allergies: No Known Allergies (Unverified , 11/01/17) Subjective Patient hypotensive this am Objective Last 24 Hour Vital Signs Date Time Temp Pulse Resp B/P (MAP) Pulse Ox O2 Delivery O2 Flow Rate FiO2 06/23/19 09:00 Nasal Cannula 2.0 06/23/19 08:14 80 06/23/19 08:00 97.6 92 18 96/58 (71) 96 06/23/19 04:00 85 06/23/19 04:00 98.0 80 20 98/54 (69) 92 06/23/19 00:00 98.3 85 22 102/63 (76) 94 06/23/19 00:00 96 06/22/19 21:00 Nasal Cannula 2.0 06/22/19 20:00 80 06/22/19 20:00 98.3 88 24 104/67 (79) 94 06/22/19 16:18 98.6 95 22 100/56 (71) 94 06/22/19 16:03 96 06/22/19 14:15 98.6 100 24 100/56 (71) 98 06/22/19 12:00 101.8 125 24 118/57 (77) 93 125 Intake and Output 06/22/19 06/23/19 19:00 07:00 Intake Total 30 ml 3030 ml Output Total 500 ml Balance 30 ml 2530 ml Intake Oral 30 ml 30 ml IV Total 3000 ml Output Urine Total 500 ml # Voids 3 3 # Bowel Movements 3 2 Laboratory Tests 06/22/19 16:50: Stool Occult Blood Positive 06/23/19 06:36: White Blood Count 12.8H, Red Blood Count 2.82L, Hemoglobin 10.3L, Hematocrit 29.8L, Mean Corpuscular Volume 106H, Mean Corpuscular Hemoglobin 36.4H, Mean Corpuscular Hemoglobin Concent 34.4, Red Cell Distribution Width 12.1, Platelet Count 90L, Mean Platelet Volume 7.6, Neutrophils (%) (Auto) , Lymphocytes (%) ( Auto) , Monocytes (%) (Auto) , Eosinophils (%) (Auto) , Basophils (%) (Auto) , Differential Total Cells Counted 100, Neutrophils % (Manual) 73, Lymphocytes % ( Manual) 15L, Monocytes % (Manual) 8, Eosinophils % (Manual) 4H, Basophils % ( Manual) 0, Band Neutrophils 0, Platelet Estimate DecreasedL, Platelet Morphology Normal, Macrocytosis 1+, Sodium Level 135L, Potassium Level 3.5, Chloride Level 110H, Carbon Dioxide Level 18L, Anion Gap 7, Blood Urea Nitrogen 13, Creatinine 1.4H, Estimat Glomerular Filtration Rate 50.7, Glucose Level 123H , Lactic Acid Level 1.90, Calcium Level 8.0L, Iron Level 30L, Total Iron Binding Capacity 234L, Percent Iron Saturation 13L, Unsaturated Iron Binding 204 , Total Bilirubin 1.3H, Direct Bilirubin 0.5H, Aspartate Amino Transf (AST/SGOT ) 48H, Alanine Aminotransferase (ALT/SGPT) 25, Alkaline Phosphatase 96, Ammonia 63H, Total Protein 6.0L, Albumin 1.8L, Globulin 4.2, Albumin/Globulin Ratio 0.4L , HIV (1&2) Antibody Rapid Negative Height (Feet): 5 Height (Inches): 8.00 Weight (Pounds): 171 General Appearance: no apparent distress EENT: normal ENT inspection Neck: normal alignment, supple Cardiovascular: regular rhythm, tachycardia Respiratory/Chest: normal breath sounds Edema: no edema noted Arm (L), no edema noted Arm (R), no edema noted Leg (L), no edema noted Leg (R), no edema noted Pedal (L), no edema noted Pedal (R), no edema noted Generalized Girish Perry MD Jun 23, 2019 11:54
--- NOTE | 2019-06-23 11:55 | Progress Note ---
DATE: 06/22/2019 SUBJECTIVE: The patient is calm in bed. No behavior issues noted. Manageable and was able to be more interactive and answers the questions. He knew the year and month and did not know the date. There is agitation. MENTAL STATUS EXAMINATION: The patient is alert and oriented times self and place. Mood is neutral. Affect is flat. Thought process is concrete. Thought content, no suicidal or homicidal ideation. Cognition is impaired. ASSESSMENT: 1. Acute encephalopathy. 2. Cognitive impairment. PLAN: 1. We will continue current medications. 2. Provide the patient with reality orientation and supportive therapy. Yoly Johnson M.D. DR: JENNIFER JOB#: [id number] CC:
--- NOTE | 2019-06-23 11:58 | NUR ---
NURSE NOTES: Pt is hypotensive BP 76/[address] Perry in the room, will order bolus, knows Na 135
--- NOTE | 2019-06-23 12:24 | NUR ---
ROLL ON MANMEDICAL ASSISTANT SUPERVISOR SI: ENCEPHALOPATHY,LEUKOCYTOSIS WBC 12.8 ALB 1.8 NA 135 AMMONIA 63 IS: ZOSYN IV IVF NS @ 100ML/HR LACTULOSE PO TELE STATUS
--- NOTE | 2019-06-23 14:00 | NUR ---
NURSE NOTES: Pt received from MEG Harper in stable condition with no cardiopulmonary distress noted. Pt is awake in bed, AAO x3, BP: 103/65 HR 79, pt is on 2L O2 via NC, 22g IV noted in RFA running NS at 100cc/hr. Skin alterations noted. Pt uses bed side commode. Pt belongings reviewed with MEG Harper and patient. at bedside and took pt's wallet, valencia, watch, and glasses. states she previously took one other watch yesterday. Bed in lowest position, alarm on, side rails up x2, call light within reach. Will continue to monitor. Addendum: 06/23/19 at 1431 by Haleigh Rutherford RN Late Entry: pt hooked to battery service technician and is SR. Addendum: 06/23/19 at 1450 by Haleigh Rutherford RN NURSE NOTES: Late Entry: side rails padded per seizure precaution.
--- NOTE | 2019-06-23 14:29 | NUR ---
HAND-OFF: Report given to MEG Godinez. Endordsed plan of care. Redness noted on sacral area. Orders transferred.
[2019-06-23] MEDS ORDERED: LORazepam Inj 2mg/ml 1ml IV PRN (14:45)
--- NOTE | 2019-06-23 15:35 | NUR ---
NURSE NOTES: Pt refused insulin and was made aware that his blood glucose level is 117. I explained the indication for insulin as well as educated the pt on diabetes management. Pt verbalized understanding but refuses insulin at this time.
--- NOTE | 2019-06-23 16:15 | Consultation ---
History of Present Illness General Date patient seen: Jun 23, 2019 Time patient seen: 16:12 Chief Complaint: Altered Mental Status Present Illness HPI 68 y/o M with hx of bipolar disorder, pulmonary fibrosis, HLD, HTN, BPH, PUD, seizure disorder, opiate dependance, DM2, GIB presented to ED on 06/19 with lethargy, cough, SOB. Cardiology consulted for hypotension. Allergies: Coded Allergies: No Known Allergies (Unverified , 11/01/17) Medication History Scheduled Acetaminophen With Codeine (T#3) (Tylenol #3 Tab*), 1 TAB ORAL EVERY 6 HOURS, ( Reported) Aripiprazole* (Abilify*), 20 MG ORAL DAILY, (Reported) Aspirin* (Aspir 81*), 81 MG ORAL DAILY, (Reported) Atorvastatin Calcium* (Atorvastatin Calcium*), 40 MG ORAL BEDTIME, (Reported) Cholecalciferol (Vitamin D3)* (Vitamin D*), 1,000 UNIT ORAL DAILY, (Reported) Lisinopril (Lisinopril*), 20 MG ORAL DAILY, (Reported) Metformin Hcl* (Metformin Hcl*), 1,000 MG ORAL DAILY, (Reported) Multivitamins* (Multivitamins*), 1 TAB ORAL DAILY, (Reported) Tamsulosin Hcl (Tamsulosin Hcl*), 0.4 MG ORAL BEDTIME, (Reported) [androgel 1.62 %], 1.62 % TP DAILY, (Reported) Scheduled PRN Acetaminophen With Codeine (T#3) (Tylenol #3 Tab*), 1 TAB ORAL EVERY 6 HOURS PRN for For Pain, (Reported) Loratadine (Loratadine), 10 MG PO DAILY PRN for sneezing, (Reported) Miscellaneous Medications Benzonatate (Benzonatate), 100 MG PO, (Reported) Unable to Obtain Medications (Unable To Obtain Meds), (Reported) Patient History Healthcare decision maker Resuscitation status Full Code Advanced Directive on File Review of Systems Constitutional: Reports: malaise, weakness Eye: Reports: no symptoms ENT: Reports: no symptoms Respiratory: Reports: no symptoms Cardiovascular: Reports: no symptoms Gastrointestinal: Reports: no symptoms Genitourinary: Reports: no symptoms Musculoskeletal: Reports: no symptoms Skin: Reports: no symptoms Psychiatric: Reports: no symptoms Neurological: Reports: dizziness Endocrine: Reports: no symptoms Hematologic/Lymphatic: Reports: no symptoms Physical Exam General Appearance: no apparent distress, lethargic, confused Lines, tubes and drains: peripheral HEENT: normocephalic, atraumatic, mucous membranes moist, PERRL Neck: non-tender, normal alignment, supple, normal inspection Respiratory/Chest: chest wall non-tender, lungs clear, normal breath sounds Cardiovascular/Chest: normal peripheral pulses, normal rate, regular rhythm Abdomen: normal bowel sounds, non tender, soft, no organomegaly, no mass Extremities: normal range of motion, non-tender, normal inspection, no calf tenderness, normal capillary refill, non-pitting Skin Exam: normal pigmentation, warm/dry, cyanotic Neurologic: no motor/sensory deficits Last 24 Hour Vital Signs Date Time Temp Pulse Resp B/P (MAP) Pulse Ox O2 Delivery O2 Flow Rate FiO2 06/23/19 13:19 79 93/53 (66) 06/23/19 12:00 96.6 79 22 77/36 (50) 94 06/23/19 11:45 68 76/46 (56) 06/23/19 11:29 80 06/23/19 09:00 Nasal Cannula 2.0 06/23/19 08:14 80 06/23/19 08:00 97.6 92 18 96/58 (71) 96 06/23/19 04:00 85 06/23/19 04:00 98.0 80 20 98/54 (69) 92 06/23/19 00:00 98.3 85 22 102/63 (76) 94 06/23/19 00:00 96 06/22/19 21:00 Nasal Cannula 2.0 06/22/19 20:00 80 06/22/19 20:00 98.3 88 24 104/67 (79) 94 06/22/19 16:18 98.6 95 22 100/56 (71) 94 Intake and Output 06/22/19 06/23/19 19:00 07:00 Intake Total 30 ml 3030 ml Output Total 500 ml Balance 30 ml 2530 ml Intake Oral 30 ml 30 ml IV Total 3000 ml Output Urine Total 500 ml # Voids 3 3 # Bowel Movements 3 2 Laboratory Tests Test 06/22/19 16:50 06/23/19 06:36 Stool Occult Blood Positive (NEGATIVE) White Blood Count 12.8 K/UL (4.8-10.8) H Red Blood Count 2.82 M/UL (4.70-6.10) L Hemoglobin 10.3 G/DL (14.2-18.0) L Hematocrit 29.8 % (42.0-52.0) L Mean Corpuscular Volume 106 FL (80-99) H Mean Corpuscular Hemoglobin 36.4 PG (27.0-31.0) H Mean Corpuscular Hemoglobin Concent 34.4 G/DL (32.0-36.0) Red Cell Distribution Width 12.1 % (11.6-14.8) Platelet Count 90 K/UL (150-450) L Mean Platelet Volume 7.6 FL (6.5-10.1) Neutrophils (%) (Auto) % (45.0-75.0) Lymphocytes (%) (Auto) % (20.0-45.0) Monocytes (%) (Auto) % (1.0-10.0) Eosinophils (%) (Auto) % (0.0-3.0) Basophils (%) (Auto) % (0.0-2.0) Differential Total Cells Counted 100 Neutrophils % (Manual) 73 % (45-75) Lymphocytes % (Manual) 15 % (20-45) L Monocytes % (Manual) 8 % (1-10) Eosinophils % (Manual) 4 % (0-3) H Basophils % (Manual) 0 % (0-2) Band Neutrophils 0 % (0-8) Platelet Estimate Decreased L Platelet Morphology Normal Macrocytosis 1+ Sodium Level 135 MMOL/L (136-145) L Potassium Level 3.5 MMOL/L (3.5-5.1) Chloride Level 110 MMOL/L (98-107) H Carbon Dioxide Level 18 MMOL/L (21-32) L Anion Gap 7 mmol/L (5-15) Blood Urea Nitrogen 13 mg/dL (7-18) Creatinine 1.4 MG/DL (0.55-1.30) H Estimat Glomerular Filtration Rate 50.7 mL/min (>60) Glucose Level 123 MG/DL (74-106) H Lactic Acid Level 1.90 mmol/L (0.4-2.0) Calcium Level 8.0 MG/DL (8.5-10.1) L Iron Level 30 ug/dL (50-175) L Total Iron Binding Capacity 234 ug/dL (250-450) L Percent Iron Saturation 13 % (15-50) L Unsaturated Iron Binding 204 ug/dL (112-346) Total Bilirubin 1.3 MG/DL (0.2-1.0) H Direct Bilirubin 0.5 MG/DL (0.0-0.3) H Aspartate Amino Transf (AST/SGOT) 48 U/L (15-37) H Alanine Aminotransferase (ALT/SGPT) 25 U/L (12-78) Alkaline Phosphatase 96 U/L (46-116) Ammonia 63 umol/L (11-32) H Total Protein 6.0 G/DL (6.4-8.2) L Albumin 1.8 G/DL (3.4-5.0) L Globulin 4.2 g/dL Albumin/Globulin Ratio 0.4 (1.0-2.7) L HIV (1&2) Antibody Rapid Negative (NEGATIVE) Microbiology Date/Time Source Procedure Growth Status 06/22/19 16:50 Stool Stool Culture - Preliminary NORMAL FECAL SHARAD. Resulted 06/22/19 16:50 Stool Clostridium difficile Toxin Assay - Final Complete Height (Feet): 5 Height (Inches): 8.00 Weight (Pounds): 171 Medications Current Medications Medications (Trade) Dose Ordered Sig/Ceasar Route PRN Reason Start Time Stop Time Status Last Admin Dose Admin Aspirin (Ecotrin) 81 mg DAILY ORAL 06/24/19 09:00 07/20/19 08:59 Dextrose (Dextrose 50%) 25 ml Q30M PRN IV Hypoglycemia 06/23/19 14:00 07/19/19 21:29 Dextrose (Dextrose 50%) 50 ml Q30M PRN IV Hypoglycemia 06/23/19 14:00 07/19/19 21:29 Famotidine (Pepcid) 40 mg DAILY ORAL 06/24/19 09:00 07/20/19 08:59 Folic Acid (Folate) 1 mg DAILY ORAL 06/24/19 09:00 07/20/19 08:59 Guaifenesin/ Dextromethorphan (Robitussin DM Syrup) 10 ml Q4H PRN ORAL For Cough 06/23/19 14:45 07/22/19 14:43 Ibuprofen (Advil) 200 mg Q8H PRN ORAL Mild Pain/Temp > 100.5 06/23/19 15:00 07/23/19 14:59 Insulin Aspart (NovoLOG) BEFORE MEALS AND HS SUBQ 06/23/19 16:30 07/20/19 06:29 Lactulose (Cephulac) 20 gm TID ORAL 06/23/19 18:00 07/20/19 08:59 Lorazepam (Ativan 2mg/ml 1ml) 1 mg Q3H PRN IV For Anxiety 06/23/19 14:45 06/29/19 14:44 Multivitamins (Multivitamins) 1 tab DAILY ORAL 06/24/19 09:00 07/20/19 08:59 Piperacillin Sod/ Tazobactam Sod 3.375 gm/Sodium Chloride 110 ml @ 27.5 mls/hr EVERY 8 HOURS IVPB 06/23/19 14:00 06/28/19 13:59 06/23/19 14:21 Risperidone (RisperDAL) 0.5 mg BEDTIME ORAL 06/23/19 21:00 07/20/19 20:59 Sodium Chloride 1,000 ml @ 100 mls/hr Q10H IV 06/23/19 13:45 07/23/19 12:59 06/23/19 13:56 Tamsulosin HCl (Flomax) 0.4 mg BEDTIME ORAL 06/23/19 21:00 07/20/19 20:59 Thiamine HCl (Vitamin B1) 100 mg DAILY ORAL 06/24/19 09:00 07/20/19 08:59 Assessment/Plan Status: stable Assessment/Plan: Assessment: 68 y/o M with hx of bipolar disorder, pulmonary fibrosis, HLD, HTN, BPH, PUD, seizure disorder, opiate dependance, DM2, GIB presented to ED on 06/19 with lethargy, cough, SOB Plan: IV fluids Echocardiogram Hold BP meds Add midodrine 10 mg TID Albumin volume expansion Sepsis work up per ID May need transfer to ICU for levophed Mac Bai MD Jun 23, 2019 16:15
[2019-06-23] MEDS: Midodrine 10mg tab ORAL SCH (17:40)
--- NOTE | 2019-06-23 18:08 | General Progress Note ---
Assessment/Plan Status: stable Assessment/Plan: Assessment - (R) sided colitis --> need to check C Diff --> negative - diverticulosis - thickening in (L) colon --> patient / agreeable to colonoscopy - cirrhosis with portal HTN - vertebral compression fracture - pulmonary fibrosis Recommendations - continue lactulose - pulmonary f/u - cardiology f/u - will need eventual colonoscopy - will likely also do EGD to status for varicies Subjective Allergies: Coded Allergies: No Known Allergies (Unverified , 11/01/17) Subjective moved to [facility] now more awake and clear d/w they want colonoscopy performed to evaluate abnormalities seen on CT Objective Last 24 Hour Vital Signs Date Time Temp Pulse Resp B/P (MAP) Pulse Ox O2 Delivery O2 Flow Rate FiO2 06/23/19 16:00 98.0 74 20 104/63 (77) 93 06/23/19 16:00 74 06/23/19 16:00 Nasal Cannula 4.0 06/23/19 13:19 79 93/53 (66) 06/23/19 12:00 96.6 79 22 77/36 (50) 94 06/23/19 11:45 68 76/46 (56) 06/23/19 11:29 80 06/23/19 09:00 Nasal Cannula 2.0 06/23/19 08:14 80 06/23/19 08:00 97.6 92 18 96/58 (71) 96 06/23/19 04:00 85 06/23/19 04:00 98.0 80 20 98/54 (69) 92 06/23/19 00:00 98.3 85 22 102/63 (76) 94 06/23/19 00:00 96 06/22/19 21:00 Nasal Cannula 2.0 06/22/19 20:00 80 06/22/19 20:00 98.3 88 24 104/67 (79) 94 Intake and Output 06/22/19 06/23/19 18:59 06:59 Intake Total 30 ml 3030 ml Output Total 500 ml Balance 30 ml 2530 ml Intake Oral 30 ml 30 ml IV Total 3000 ml Output Urine Total 500 ml # Voids 3 3 # Bowel Movements 3 2 Laboratory Tests 06/23/19 06:36: White Blood Count 12.8H, Red Blood Count 2.82L, Hemoglobin 10.3L, Hematocrit 29.8L, Mean Corpuscular Volume 106H, Mean Corpuscular Hemoglobin 36.4H, Mean Corpuscular Hemoglobin Concent 34.4, Red Cell Distribution Width 12.1, Platelet Count 90L, Mean Platelet Volume 7.6, Neutrophils (%) (Auto) , Lymphocytes (%) ( Auto) , Monocytes (%) (Auto) , Eosinophils (%) (Auto) , Basophils (%) (Auto) , Differential Total Cells Counted 100, Neutrophils % (Manual) 73, Lymphocytes % ( Manual) 15L, Monocytes % (Manual) 8, Eosinophils % (Manual) 4H, Basophils % ( Manual) 0, Band Neutrophils 0, Platelet Estimate DecreasedL, Platelet Morphology Normal, Macrocytosis 1+, Sodium Level 135L, Potassium Level 3.5, Chloride Level 110H, Carbon Dioxide Level 18L, Anion Gap 7, Blood Urea Nitrogen 13, Creatinine 1.4H, Estimat Glomerular Filtration Rate 50.7, Glucose Level 123H , Lactic Acid Level 1.90, Calcium Level 8.0L, Iron Level 30L, Total Iron Binding Capacity 234L, Percent Iron Saturation 13L, Unsaturated Iron Binding 204 , Total Bilirubin 1.3H, Direct Bilirubin 0.5H, Aspartate Amino Transf (AST/SGOT ) 48H, Alanine Aminotransferase (ALT/SGPT) 25, Alkaline Phosphatase 96, Ammonia 63H, Total Protein 6.0L, Albumin 1.8L, Globulin 4.2, Albumin/Globulin Ratio 0.4L , HIV (1&2) Antibody Rapid Negative Height (Feet): 5 Height (Inches): 8.00 Weight (Pounds): 171 Objective WDWN NCAT supple CTA RR Abd soft no edema Laura Toribio MD Jun 23, 2019 18:08
--- NOTE | 2019-06-23 18:22 | Infectious Diseases Prog Note ---
Assessment/Plan Assessment/Plan Abx: Zosyn 06/22 Assessment: Sepsis (not present on admission)- r/o aspiration PNA, UTI, bacteremia -06/22 Bcx p -06/19 u/a neg CXR: Correlate cardiomegaly. Suspect bilateral interstitial edema FEver, improvng No leukocytosis Acute encephalopathy -CT head: Mild age-related volume loss. Negative for acute intracranial bleed or mass effect. Colitis -Cdiff neg -stool cx p AST and Tbili elevation/ Cirrhosis on CT -Abd US: Limited exam, as described. Negative for gallstones or dilated bile ducts. Hepatic surface nodularity, also described on recent CT scan, consistent with early cirrhotic change. Upper limits normal size spleen -acute hep panel, HIV sc neg -CT abd/p: Marked wall thickening of the ascending colon and proximal transverse colon with associated edema of the pericolonic fat. This is consistent with colitis,nonspecific as regards etiology. Colonic diverticulosis. Wall thickening of the mid sigmoid is noted, probably represents circular muscle hypertrophy related to such. However, the possibility of a sigmoid neoplasm in this location should also be considered. Evidence of hepatic cirrhosis, with hepatic surface nodularity. Evidence of portal hypertension, with ascites, perisplenic perigastric and periesophageal varices, mild splenomegaly. Distended gallbladder without definite gallstones. Gallbladder wall thickening and edema is probably related to the hepatocellular abnormality, but the possibility of acute cholecystitis either due to occult stone disease or acalculous should also be considered. Extensive pulmonary parenchymal disease, as described. Mostly if not exclusively due to end-stage pulmonary fibrosis. Confluent opacities in the right lung probably represent confluent scarring, but could also represent areas of acute infiltrate. T9 vertebral body compression fracture deformity, with approximately 60% height loss, to indeterminate but progressive since a thoracic spine CT of 11/02/2017. 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 Will continue to follow along with you. Discussed with RN Subjective Allergies: Coded Allergies: No Known Allergies (Unverified , 3/5/18) Subjective afebrile >24hrs no leukocytosis Objective Vital Signs Last 24 Hour Vital Signs Date Time Temp Pulse Resp B/P (MAP) Pulse Ox O2 Delivery O2 Flow Rate FiO2 06/23/19 16:00 98.0 74 20 104/63 (77) 93 06/23/19 16:00 74 06/23/19 16:00 Nasal Cannula 4.0 06/23/19 13:19 79 93/53 (66) 06/23/19 12:00 96.6 79 22 77/36 (50) 94 06/23/19 11:45 68 76/46 (56) 06/23/19 11:29 80 06/23/19 09:00 Nasal Cannula 2.0 06/23/19 08:14 80 06/23/19 08:00 97.6 92 18 96/58 (71) 96 06/23/19 04:00 85 06/23/19 04:00 98.0 80 20 98/54 (69) 92 06/23/19 00:00 98.3 85 22 102/63 (76) 94 06/23/19 00:00 96 06/22/19 21:00 Nasal Cannula 2.0 06/22/19 20:00 80 06/22/19 20:00 98.3 88 24 104/67 (79) 94 Height (Feet): 5 Height (Inches): 8.00 Weight (Pounds): 171 Objective GENERAL: The patient is awake, alert, mildly confused, and disoriented. HEENT: Extraocular muscles intact. No lymphadenopathy noted. CARDIOVASCULAR: S1, S2. No rubs or gallops. PULMONARY: Clear to auscultation bilaterally. No rales, rhonchi, or wheezes. ABDOMEN: Nondistended and nontender. EXTREMITIES: No edema Microbiology Date/Time Source Procedure Growth Status 06/22/19 16:50 Stool Stool Culture - Preliminary NORMAL FECAL SHARAD. Resulted 06/22/19 16:50 Stool Clostridium difficile Toxin Assay - Final Complete Laboratory Tests Test 06/23/19 06:36 White Blood Count 12.8 K/UL (4.8-10.8) H Red Blood Count 2.82 M/UL (4.70-6.10) L Hemoglobin 10.3 G/DL (14.2-18.0) L Hematocrit 29.8 % (42.0-52.0) L Mean Corpuscular Volume 106 FL (80-99) H Mean Corpuscular Hemoglobin 36.4 PG (27.0-31.0) H Mean Corpuscular Hemoglobin Concent 34.4 G/DL (32.0-36.0) Red Cell Distribution Width 12.1 % (11.6-14.8) Platelet Count 90 K/UL (150-450) L Mean Platelet Volume 7.6 FL (6.5-10.1) Neutrophils (%) (Auto) % (45.0-75.0) Lymphocytes (%) (Auto) % (20.0-45.0) Monocytes (%) (Auto) % (1.0-10.0) Eosinophils (%) (Auto) % (0.0-3.0) Basophils (%) (Auto) % (0.0-2.0) Differential Total Cells Counted 100 Neutrophils % (Manual) 73 % (45-75) Lymphocytes % (Manual) 15 % (20-45) L Monocytes % (Manual) 8 % (1-10) Eosinophils % (Manual) 4 % (0-3) H Basophils % (Manual) 0 % (0-2) Band Neutrophils 0 % (0-8) Platelet Estimate Decreased L Platelet Morphology Normal Macrocytosis 1+ Sodium Level 135 MMOL/L (136-145) L Potassium Level 3.5 MMOL/L (3.5-5.1) Chloride Level 110 MMOL/L (98-107) H Carbon Dioxide Level 18 MMOL/L (21-32) L Anion Gap 7 mmol/L (5-15) Blood Urea Nitrogen 13 mg/dL (7-18) Creatinine 1.4 MG/DL (0.55-1.30) H Estimat Glomerular Filtration Rate 50.7 mL/min (>60) Glucose Level 123 MG/DL (74-106) H Lactic Acid Level 1.90 mmol/L (0.4-2.0) Calcium Level 8.0 MG/DL (8.5-10.1) L Iron Level 30 ug/dL (50-175) L Total Iron Binding Capacity 234 ug/dL (250-450) L Percent Iron Saturation 13 % (15-50) L Unsaturated Iron Binding 204 ug/dL (112-346) Total Bilirubin 1.3 MG/DL (0.2-1.0) H Direct Bilirubin 0.5 MG/DL (0.0-0.3) H Aspartate Amino Transf (AST/SGOT) 48 U/L (15-37) H Alanine Aminotransferase (ALT/SGPT) 25 U/L (12-78) Alkaline Phosphatase 96 U/L (46-116) Ammonia 63 umol/L (11-32) H Total Protein 6.0 G/DL (6.4-8.2) L Albumin 1.8 G/DL (3.4-5.0) L Globulin 4.2 g/dL Albumin/Globulin Ratio 0.4 (1.0-2.7) L HIV (1&2) Antibody Rapid Negative (NEGATIVE) Current Medications Medications (Trade) Dose Ordered Sig/Ceasar Route PRN Reason Start Time Stop Time Status Last Admin Dose Admin Aspirin (Ecotrin) 81 mg DAILY ORAL 06/24/19 09:00 07/20/19 08:59 Dextrose (Dextrose 50%) 25 ml Q30M PRN IV Hypoglycemia 06/23/19 14:00 07/19/19 21:29 Dextrose (Dextrose 50%) 50 ml Q30M PRN IV Hypoglycemia 06/23/19 14:00 07/19/19 21:29 Famotidine (Pepcid) 40 mg DAILY ORAL 06/24/19 09:00 07/20/19 08:59 Folic Acid (Folate) 1 mg DAILY ORAL 06/24/19 09:00 07/20/19 08:59 Guaifenesin/ Dextromethorphan (Robitussin DM Syrup) 10 ml Q4H PRN ORAL For Cough 06/23/19 14:45 07/22/19 14:43 Ibuprofen (Advil) 200 mg Q8H PRN ORAL Mild Pain/Temp > 100.5 06/23/19 15:00 07/23/19 14:59 Insulin Aspart (NovoLOG) BEFORE MEALS AND HS SUBQ 06/23/19 16:30 07/20/19 06:29 Lactulose (Cephulac) 20 gm TID ORAL 06/23/19 18:00 07/20/19 08:59 06/23/19 17:40 Lorazepam (Ativan 2mg/ml 1ml) 1 mg Q3H PRN IV For Anxiety 06/23/19 14:45 06/29/19 14:44 Midodrine (Pro-Amatine) 10 mg THREE TIMES A DAY ORAL 06/23/19 18:00 07/23/19 17:59 06/23/19 17:40 Multivitamins (Multivitamins) 1 tab DAILY ORAL 06/24/19 09:00 07/20/19 08:59 Piperacillin Sod/ Tazobactam Sod 3.375 gm/Sodium Chloride 110 ml @ 27.5 mls/hr EVERY 8 HOURS IVPB 06/23/19 14:00 06/28/19 13:59 06/23/19 14:21 Risperidone (RisperDAL) 0.5 mg BEDTIME ORAL 06/23/19 21:00 07/20/19 20:59 Sodium Chloride 1,000 ml @ 100 mls/hr Q10H IV 06/23/19 13:45 07/23/19 12:59 06/23/19 13:56 Tamsulosin HCl (Flomax) 0.4 mg BEDTIME ORAL 06/23/19 21:00 07/20/19 20:59 Thiamine HCl (Vitamin B1) 100 mg DAILY ORAL 06/24/19 09:00 07/20/19 08:59 Nelly Moore M.D. Jun 23, 2019 18:22
--- NOTE | 2019-06-23 18:28 | NUR ---
NURSE NOTES:WOUND CARE NOTES: Pt presented with non-blanching erythema to R and L clefts of buttocks. Skin dryness also noted to bilat clefts of buttocks. Pt denied tenderness when affected areas palpated. Both heels are firm and easily blanchable. Pt demonstrated good mobility in bed. P and his spouse has been educated of risks for further skin breakdown. Pt instructed on repositioning techniques and how to off-lift buttocks while repositioning to prevent friction to skin. Encouraged pt to frequently reposition while in bed. Moisture Barrier paste applied to R and L buttocks and covered with Optifoam drsg,. Cavilon Skin BArrier applied to both heels .Each heel covered with Optifoam drsg and both heels off-loaded with pillow. Tx.Plan: Apply Moisture Barrier Paste to R and L buttocks. Cover with Optifoam drsg. Change every 3 days and prn. Apply Cavilon Skin BArrier to Both heels. Cover each heel with Optifoam drsg. Change every 7 days and prn. Reposition at least every 2hours or as tolerated. Off-load heels with pillow.
--- NOTE | 2019-06-23 19:29 | NUR ---
HAND-OFF: Report given to MEG Hairston. Pt in stable condition.
--- NOTE | 2019-06-23 19:30 | NUR ---
NURSE NOTES: Received report from MEG Rutherford. Pt is resting on the bed and awake and forgetful. Given realty orientation. On O2 4L via nasal cannula. Noted on & off coughing. Denied pain at this time. Dressing intact on wound area. IV site intact and no sign of infiltration noted. On running with N/S @100cc/hr. Placed fall and seizure precaution. Will continue to care plan.
[2019-06-23] MEDS ORDERED: Tamsulosin 0.4mg cap ORAL SCH (21:00)
[2019-06-23] MEDS: Guaifenesin/DM 10ml syrup ORAL PRN (22:18)
[2019-06-24] VITALS: BP 92/56
--- NOTE | 2019-06-24 02:30 | Progress Note ---
DATE: 06/23/2019 SUBJECTIVE: The patient is more alert and able to answer questions. He continues to be forgetful and still dependent. Medication was decreased yesterday . The patient is able to answer simple questions. MENTAL STATUS EXAMINATION: Alert and oriented times to self and place, did not know the date. Mood is neutral. Affect is flat. Thought process, there is a paucity of thought content. Thought content, no suicidal or homicidal ideation. ASSESSMENT: Stable. PLAN: 1. We will continue current medication, low dose of risperidone. 2. Provide the patient with reality orientation. Yoly Johnson M.D. DR: WHIT JOB#: [id number] CC: JACOB
[2019-06-24 04:00] VITALS: BP 100/62
[2019-06-24 05:46] LABS: BASOPHILS % (AUTO) 1.3 % (0.0-2.0); EOSINOPHILS % (AUTO) 5.6 % (0.0-3.0); HEMATOCRIT 29.3 % (42.0-52.0); HEMOGLOBIN 10.1 G/DL (14.2-18.0); LYMPHOCYTES % (AUTO) 18.8 % (20.0-45.0); MEAN CORPUSCULAR VOLUME 107 FL (80-99); MONOCYTES % (AUTO) 9.5 % (1.0-10.0); NEUTROPHILS % (AUTO) 64.9 % (45.0-75.0); PLATELET COUNT 105 K/UL (150-450); RED BLOOD COUNT 2.75 M/UL (4.70-6.10); RED CELL DISTRIBUTION WIDTH 12.2 % (11.6-14.8); WHITE BLOOD COUNT 9.4 K/UL (4.8-10.8)
[2019-06-24 05:54] LABS: ANION GAP 7 mmol/L (5-15); BLOOD UREA NITROGEN 13 mg/dL (7-18); CALCIUM 7.9 MG/DL (8.5-10.1); CARBON DIOXIDE 19 MMOL/L (21-32); CHLORIDE 111 MMOL/L (98-107); CREATININE 1.2 MG/DL (0.55-1.30); POTASSIUM 3.8 MMOL/L (3.5-5.1); SODIUM 137 MMOL/L (136-145)
[2019-06-24] MEDS: Piperacillin/Tazobactam 3.375 GM in NS 110 ML IVPB SCH ×3 (06:03→22:18)
[2019-06-24] MEDS: NovoLOG Insulin Flexpen SUBQ SCH ×4 (06:30→22:17)
--- NOTE | 2019-06-24 07:23 | NUR ---
HAND-OFF: Report given to MEG Panchal. Pt is resting on the bed and no sign of acute distress noted.
[2019-06-24 08:00] VITALS: BP 101/58
--- NOTE | 2019-06-24 08:00 | NUR ---
NURSE NOTES: Received change of shift report from Marika WEAVER. Pt is awake, alert, oriented x4. Pt is on 4L of oxygen via nasal cannula with 99% O2Sat. Per Tele monitor, cardiac rhythm is NSR with heart rate currently in the 70's. Weak peripheral pulses on noted on palpation. Pt has right FA #22G peripheral IV access with IV fluid infusing NS at 100ml/hour. Pt is afebrile, with T97F axillary. Pt uses urinal and bedside commode for elimination. Abdomen is round, soft, nontender to touch with hyperactive bowel sounds in all quadrants. Skin has sacral erythema. Pt uses cane at home for ambulation, currently on bedrest with bedside commode privileges with nurse assist. Pt is placed on fall and seizure precautions with side rails padded and suction set up at bedside. Bed is locked with three side rails up, in lowest position, head of bed at semi-carey's and call light within easy reach. Will continue to monitor pt and follow plan of care per MD orders and protocol.
[2019-06-24] MEDS: Guaifenesin/DM 10ml syrup ORAL PRN ×4 (08:48→23:08)
[2019-06-24] MEDS: Lactulose 20gm/30ml UDC ORAL SCH ×3 (08:48→17:08)
[2019-06-24] MEDS: Midodrine 10mg tab ORAL SCH ×3 (08:49→17:08)
[2019-06-24] MEDS ORDERED: Thiamine 100mg tab ORAL SCH (09:00)
[2019-06-24] MEDS ORDERED: Aspirin EC 81mg tab ORAL SCH (09:00)
--- NOTE | 2019-06-24 09:33 | General Progress Note ---
Assessment/Plan Status: stable Assessment/Plan: Assessment - (R) sided colitis --> need to check C Diff --> negative - diverticulosis - thickening in (L) colon --> patient / agreeable to colonoscopy - cirrhosis with portal HTN - vertebral compression fracture - pulmonary fibrosis Recommendations - continue lactulose>>> will decrease by half given severe diarrhea - pulmonary f/u - cardiology f/u - will need eventual colonoscopy - will likely also do EGD to status for varicies>>> to be scheduled by Dr Toribio Subjective ROS Limited/Unobtainable: No Allergies: Coded Allergies: No Known Allergies (Unverified , 11/01/17) Objective Last 24 Hour Vital Signs Date Time Temp Pulse Resp B/P (MAP) Pulse Ox O2 Delivery O2 Flow Rate FiO2 06/24/19 04:00 86 06/24/19 04:00 97.3 72 20 100/62 (75) 96 06/24/19 00:00 98.0 72 20 92/56 (68) 96 06/24/19 00:00 70 06/24/19 00:00 Nasal Cannula 4.0 06/23/19 22:00 70 105/60 (75) 06/23/19 20:00 97.0 69 20 92/58 (69) 95 06/23/19 20:00 Nasal Cannula 4.0 06/23/19 20:00 67 06/23/19 16:00 98.0 74 20 104/63 (77) 93 06/23/19 16:00 74 06/23/19 16:00 Nasal Cannula 4.0 06/23/19 13:19 79 93/53 (66) 06/23/19 12:00 96.6 79 22 77/36 (50) 94 06/23/19 11:45 68 76/46 (56) 06/23/19 11:29 80 Intake and Output 06/23/19 06/24/19 19:00 07:00 Intake Total 2090.0 ml 1361.0 ml Balance 2090.0 ml 1361.0 ml Intake Oral 480 ml 240 ml IV Total 1610.0 ml 1121.0 ml # Voids 4 5 # Bowel Movements 8 7 Laboratory Tests 06/24/19 04:24: White Blood Count 9.4, Red Blood Count 2.75L, Hemoglobin 10.1L, Hematocrit 29.3L , Mean Corpuscular Volume 107H, Mean Corpuscular Hemoglobin 36.8H, Mean Corpuscular Hemoglobin Concent 34.6, Red Cell Distribution Width 12.2, Platelet Count 105L, Mean Platelet Volume 6.6, Neutrophils (%) (Auto) 64.9, Lymphocytes ( %) (Auto) 18.8L, Monocytes (%) (Auto) 9.5, Eosinophils (%) (Auto) 5.6H, Basophils (%) (Auto) 1.3, Sodium Level 137, Potassium Level 3.8, Chloride Level 111H, Carbon Dioxide Level 19L, Anion Gap 7, Blood Urea Nitrogen 13, Creatinine 1.2, Estimat Glomerular Filtration Rate > 60, Glucose Level 89, Calcium Level 7.9L Height (Feet): 5 Height (Inches): 8.00 Weight (Pounds): 171 General Appearance: alert EENT: normal ENT inspection Neck: supple Cardiovascular: normal rate Respiratory/Chest: decreased breath sounds Abdomen: normal bowel sounds, non tender, soft Extremities: non-tender Ian Rico MD Jun 24, 2019 09:33
--- NOTE | 2019-06-24 10:14 | Pulmonology Progress Note ---
Assessment/Plan Assessment/Plan IMPRESSION: 1. Altered mental status, likely secondary to medication use. 2. Psych disorder. 3. Aspiration risk. 4. History of pulmonary fibrosis DISCUSSION: CXR shows chronic appearing changes; read by radiology as intyerstitial edema ON LOW FLOW O2 Juan Catalan M.D. Subjective Interval Events: Saturating 96% on 3-4L/O2 Constitutional: Reports: no symptoms HEENT: Repors: no symptoms Respiratory: Reports: dry cough Cardiovascular: Reports: no symptoms Genitourinary: Reports: no symptoms Allergies: Coded Allergies: No Known Allergies (Unverified , 11/01/17) Objective Last 24 Hour Vital Signs Date Time Temp Pulse Resp B/P (MAP) Pulse Ox O2 Delivery O2 Flow Rate FiO2 06/24/19 09:38 81 06/24/19 04:00 86 06/24/19 04:00 97.3 72 20 100/62 (75) 96 06/24/19 00:00 98.0 72 20 92/56 (68) 96 06/24/19 00:00 70 06/24/19 00:00 Nasal Cannula 4.0 06/23/19 22:00 70 105/60 (75) 06/23/19 20:00 97.0 69 20 92/58 (69) 95 06/23/19 20:00 Nasal Cannula 4.0 06/23/19 20:00 67 06/23/19 16:00 98.0 74 20 104/63 (77) 93 06/23/19 16:00 74 06/23/19 16:00 Nasal Cannula 4.0 06/23/19 13:19 79 93/53 (66) 06/23/19 12:00 96.6 79 22 77/36 (50) 94 06/23/19 11:45 68 76/46 (56) 06/23/19 11:29 80 Intake and Output 06/23/19 06/24/19 19:00 07:00 Intake Total 2090.0 ml 1361.0 ml Balance 2090.0 ml 1361.0 ml Intake Oral 480 ml 240 ml IV Total 1610.0 ml 1121.0 ml # Voids 4 5 # Bowel Movements 8 7 General Appearance: no acute distress HEENT: normocephalic Respiratory/Chest: chest wall non-tender, decreased breath sounds Cardiovascular: normal peripheral pulses Abdomen: normal bowel sounds Microbiology Date/Time Source Procedure Growth Status 06/22/19 16:30 Blood Blood Culture - Preliminary NO GROWTH AFTER 24 HOURS Resulted 06/22/19 16:27 Blood Blood Culture - Preliminary NO GROWTH AFTER 24 HOURS Resulted 06/22/19 11:55 Blood Blood Culture - Preliminary NO GROWTH AFTER 24 HOURS Resulted 06/22/19 11:40 Blood Blood Culture - Preliminary NO GROWTH AFTER 24 HOURS Resulted 06/22/19 16:50 Stool Stool Culture - Preliminary NORMAL FECAL SHARAD. Resulted 06/22/19 16:50 Stool Clostridium difficile Toxin Assay - Final Complete Laboratory Tests 06/24/19 04:24: White Blood Count 9.4, Red Blood Count 2.75L, Hemoglobin 10.1L, Hematocrit 29.3L , Mean Corpuscular Volume 107H, Mean Corpuscular Hemoglobin 36.8H, Mean Corpuscular Hemoglobin Concent 34.6, Red Cell Distribution Width 12.2, Platelet Count 105L, Mean Platelet Volume 6.6, Neutrophils (%) (Auto) 64.9, Lymphocytes ( %) (Auto) 18.8L, Monocytes (%) (Auto) 9.5, Eosinophils (%) (Auto) 5.6H, Basophils (%) (Auto) 1.3, Sodium Level 137, Potassium Level 3.8, Chloride Level 111H, Carbon Dioxide Level 19L, Anion Gap 7, Blood Urea Nitrogen 13, Creatinine 1.2, Estimat Glomerular Filtration Rate > 60, Glucose Level 89, Calcium Level 7.9L Current Medications Medications (Trade) Dose Ordered Sig/Ceasar Route PRN Reason Start Time Stop Time Status Last Admin Dose Admin Aspirin (Ecotrin) 81 mg DAILY ORAL 06/24/19 09:00 07/20/19 08:59 06/24/19 08:49 Dextrose (Dextrose 50%) 25 ml Q30M PRN IV Hypoglycemia 06/23/19 14:00 07/19/19 21:29 Dextrose (Dextrose 50%) 50 ml Q30M PRN IV Hypoglycemia 06/23/19 14:00 07/19/19 21:29 Famotidine (Pepcid) 40 mg DAILY ORAL 06/24/19 09:00 07/20/19 08:59 06/24/19 08:49 Folic Acid (Folate) 1 mg DAILY ORAL 06/24/19 09:00 07/20/19 08:59 06/24/19 08:49 Guaifenesin/ Dextromethorphan (Robitussin DM Syrup) 10 ml Q4H PRN ORAL For Cough 06/23/19 14:45 07/22/19 14:43 06/24/19 08:48 Ibuprofen (Advil) 200 mg Q8H PRN ORAL Mild Pain/Temp > 100.5 06/23/19 15:00 07/23/19 14:59 Insulin Aspart (NovoLOG) BEFORE MEALS AND HS SUBQ 06/23/19 16:30 07/20/19 06:29 Lactulose (Cephulac) 10 gm TID ORAL 06/24/19 13:00 07/20/19 08:59 UNV Lorazepam (Ativan 2mg/ml 1ml) 1 mg Q3H PRN IV For Anxiety 06/23/19 14:45 06/29/19 14:44 Midodrine (Pro-Amatine) 10 mg THREE TIMES A DAY ORAL 06/23/19 18:00 07/23/19 17:59 06/24/19 08:49 Multivitamins (Multivitamins) 1 tab DAILY ORAL 06/24/19 09:00 07/20/19 08:59 06/24/19 08:49 Piperacillin Sod/ Tazobactam Sod 3.375 gm/Sodium Chloride 110 ml @ 27.5 mls/hr EVERY 8 HOURS IVPB 06/23/19 14:00 06/28/19 13:59 06/24/19 06:03 Risperidone (RisperDAL) 0.5 mg BEDTIME ORAL 06/23/19 21:00 07/20/19 20:59 06/23/19 21:03 Sodium Chloride 1,000 ml @ 100 mls/hr Q10H IV 06/23/19 13:45 07/23/19 12:59 06/24/19 08:56 Tamsulosin HCl (Flomax) 0.4 mg BEDTIME ORAL 06/23/19 21:00 07/20/19 20:59 06/23/19 21:03 Thiamine HCl (Vitamin B1) 100 mg DAILY ORAL 06/24/19 09:00 07/20/19 08:59 06/24/19 08:49 Juan Catalan MD Jun 24, 2019 10:14
--- NOTE | 2019-06-24 10:15 | NUR ---
NURSE NOTES: AM meds have been administered. Pt consumed 100% of breakfast meal this morning. VS remain stable. Pt had x1 episode of BM, liquid greenish/brown stool, pt used bedside commode. Pt was assisted back to bed and assisted with changing of gown and bed linens.
--- NOTE | 2019-06-24 10:52 | NUR ---
RD ASSESSMENT & RECOMMENDATIONS SEE CARE ACTIVITY FOR COMPLETE ASSESSMENT DAILY ESTIMATED NEEDS: Needs based on Wound, Cirrhosis/ 72kg abw 25-30 kcals/kg 7709-6988 total kcals 1.25-1.5 g protein/kg 90-108 g total protein 25-30 mL/kg 6480-5176 total fluid mLs NUTRITION DIAGNOSIS: * Increased kcal/prot needs R/T wound healing as evidenced by pt w/ non-blanching erythema to R and L clefts of buttocks. * Altered nutrition related lab values R/T cirrhosis as evidenced by elev T bili(1.2), elev AST, elev NH3 (92 ->63). CURRENT DIET:CCHO LOW PO DIET RECOMMENDATIONS: LOW NA, CCHO MED/ texture per [employer] ADDITIONAL RECOMMENDATIONS: * Rec [employer] evaluation for appropriate texture * Wound healing: continue MVI : add Vit C 250mg QD, Julio 1pkt BID * Calibrated bedscale wt * Monitor lytes closely w/ diarrhea (pt on lactulose), replete as needed
--- NOTE | 2019-06-24 11:04 | Infectious Diseases Prog Note ---
Assessment/Plan Assessment/Plan Abx: Zosyn 06/22 Assessment: Sepsis (not present on admission)- r/o aspiration PNA, UTI, bacteremia -06/22 Bcx NTD -06/19 u/a neg CXR: Correlate cardiomegaly. Suspect bilateral interstitial edema FEver, improvng Mild leukocytosis, SP Acute encephalopathy -CT head: Mild age-related volume loss. Negative for acute intracranial bleed or mass effect. Colitis -Cdiff neg -stool cx normal enteric loyd (prelim) AST and Tbili elevation/ Cirrhosis on CT -Abd US: Limited exam, as described. Negative for gallstones or dilated bile ducts. Hepatic surface nodularity, also described on recent CT scan, consistent with early cirrhotic change. Upper limits normal size spleen -acute hep panel, HIV sc neg -CT abd/p: Marked wall thickening of the ascending colon and proximal transverse colon with associated edema of the pericolonic fat. This is consistent with colitis,nonspecific as regards etiology. Colonic diverticulosis. Wall thickening of the mid sigmoid is noted, probably represents circular muscle hypertrophy related to such. However, the possibility of a sigmoid neoplasm in this location should also be considered. Evidence of hepatic cirrhosis, with hepatic surface nodularity. Evidence of portal hypertension, with ascites, perisplenic perigastric and periesophageal varices, mild splenomegaly. Distended gallbladder without definite gallstones. Gallbladder wall thickening and edema is probably related to the hepatocellular abnormality, but the possibility of acute cholecystitis either due to occult stone disease or acalculous should also be considered. Extensive pulmonary parenchymal disease, as described. Mostly if not exclusively due to end-stage pulmonary fibrosis. Confluent opacities in the right lung probably represent confluent scarring, but could also represent areas of acute infiltrate. T9 vertebral body compression fracture deformity, with approximately 60% height loss, to indeterminate but progressive since a thoracic spine CT of 11/02/2017. 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 Will continue to follow along with you. Discussed with RN Subjective Allergies: Coded Allergies: No Known Allergies (Unverified , 11/01/17) Subjective afebrile >36hrs leukocytosis resolved Objective Vital Signs Last 24 Hour Vital Signs Date Time Temp Pulse Resp B/P (MAP) Pulse Ox O2 Delivery O2 Flow Rate FiO2 06/24/19 09:38 81 06/24/19 09:00 Nasal Cannula 4.0 06/24/19 08:00 97.0 73 20 101/58 (72) 94 06/24/19 04:00 86 06/24/19 04:00 97.3 72 20 100/62 (75) 96 06/24/19 00:00 98.0 72 20 92/56 (68) 96 06/24/19 00:00 70 06/24/19 00:00 Nasal Cannula 4.0 06/23/19 22:00 70 105/60 (75) 06/23/19 20:00 97.0 69 20 92/58 (69) 95 06/23/19 20:00 Nasal Cannula 4.0 06/23/19 20:00 67 06/23/19 16:00 98.0 74 20 104/63 (77) 93 06/23/19 16:00 74 06/23/19 16:00 Nasal Cannula 4.0 06/23/19 13:19 79 93/53 (66) 06/23/19 12:00 96.6 79 22 77/36 (50) 94 06/23/19 11:45 68 76/46 (56) 06/23/19 11:29 80 Height (Feet): 5 Height (Inches): 8.00 Weight (Pounds): 171 Objective GENERAL: The patient is awake, alert, mildly confused, and disoriented. HEENT: Extraocular muscles intact. No lymphadenopathy noted. CARDIOVASCULAR: S1, S2. No rubs or gallops. PULMONARY: Clear to auscultation bilaterally. No rales, rhonchi, or wheezes. ABDOMEN: Nondistended and nontender. EXTREMITIES: No edema Microbiology Date/Time Source Procedure Growth Status 06/22/19 16:30 Blood Blood Culture - Preliminary NO GROWTH AFTER 24 HOURS Resulted 06/22/19 16:27 Blood Blood Culture - Preliminary NO GROWTH AFTER 24 HOURS Resulted 06/22/19 11:55 Blood Blood Culture - Preliminary NO GROWTH AFTER 24 HOURS Resulted 06/22/19 11:40 Blood Blood Culture - Preliminary NO GROWTH AFTER 24 HOURS Resulted 06/22/19 16:50 Stool Stool Culture - Preliminary NORMAL FECAL LOYD. Resulted 06/22/19 16:50 Stool Clostridium difficile Toxin Assay - Final Complete Laboratory Tests Test 06/24/19 04:24 White Blood Count 9.4 K/UL (4.8-10.8) Red Blood Count 2.75 M/UL (4.70-6.10) L Hemoglobin 10.1 G/DL (14.2-18.0) L Hematocrit 29.3 % (42.0-52.0) L Mean Corpuscular Volume 107 FL (80-99) H Mean Corpuscular Hemoglobin 36.8 PG (27.0-31.0) H Mean Corpuscular Hemoglobin Concent 34.6 G/DL (32.0-36.0) Red Cell Distribution Width 12.2 % (11.6-14.8) Platelet Count 105 K/UL (150-450) L Mean Platelet Volume 6.6 FL (6.5-10.1) Neutrophils (%) (Auto) 64.9 % (45.0-75.0) Lymphocytes (%) (Auto) 18.8 % (20.0-45.0) L Monocytes (%) (Auto) 9.5 % (1.0-10.0) Eosinophils (%) (Auto) 5.6 % (0.0-3.0) H Basophils (%) (Auto) 1.3 % (0.0-2.0) Sodium Level 137 MMOL/L (136-145) Potassium Level 3.8 MMOL/L (3.5-5.1) Chloride Level 111 MMOL/L (98-107) H Carbon Dioxide Level 19 MMOL/L (21-32) L Anion Gap 7 mmol/L (5-15) Blood Urea Nitrogen 13 mg/dL (7-18) Creatinine 1.2 MG/DL (0.55-1.30) Estimat Glomerular Filtration Rate > 60 mL/min (>60) Glucose Level 89 MG/DL (74-106) Calcium Level 7.9 MG/DL (8.5-10.1) L Current Medications Medications (Trade) Dose Ordered Sig/Ceasar Route PRN Reason Start Time Stop Time Status Last Admin Dose Admin Aspirin (Ecotrin) 81 mg DAILY ORAL 06/24/19 09:00 07/20/19 08:59 06/24/19 08:49 Dextrose (Dextrose 50%) 25 ml Q30M PRN IV Hypoglycemia 06/23/19 14:00 07/19/19 21:29 Dextrose (Dextrose 50%) 50 ml Q30M PRN IV Hypoglycemia 06/23/19 14:00 07/19/19 21:29 Famotidine (Pepcid) 40 mg DAILY ORAL 06/24/19 09:00 07/20/19 08:59 06/24/19 08:49 Folic Acid (Folate) 1 mg DAILY ORAL 06/24/19 09:00 07/20/19 08:59 06/24/19 08:49 Guaifenesin/ Dextromethorphan (Robitussin DM Syrup) 10 ml Q4H PRN ORAL For Cough 06/23/19 14:45 07/22/19 14:43 06/24/19 08:48 Ibuprofen (Advil) 200 mg Q8H PRN ORAL Mild Pain/Temp > 100.5 06/23/19 15:00 07/23/19 14:59 Insulin Aspart (NovoLOG) BEFORE MEALS AND HS SUBQ 06/23/19 16:30 07/20/19 06:29 Lactulose (Cephulac) 10 gm TID ORAL 06/24/19 13:00 07/20/19 08:59 Lorazepam (Ativan 2mg/ml 1ml) 1 mg Q3H PRN IV For Anxiety 06/23/19 14:45 06/29/19 14:44 Midodrine (Pro-Amatine) 10 mg THREE TIMES A DAY ORAL 06/23/19 18:00 07/23/19 17:59 06/24/19 08:49 Multivitamins (Multivitamins) 1 tab DAILY ORAL 06/24/19 09:00 07/20/19 08:59 06/24/19 08:49 Piperacillin Sod/ Tazobactam Sod 3.375 gm/Sodium Chloride 110 ml @ 27.5 mls/hr EVERY 8 HOURS IVPB 06/23/19 14:00 06/28/19 13:59 06/24/19 06:03 Risperidone (RisperDAL) 0.5 mg BEDTIME ORAL 06/23/19 21:00 07/20/19 20:59 06/23/19 21:03 Sodium Chloride 1,000 ml @ 100 mls/hr Q10H IV 06/23/19 13:45 07/23/19 12:59 06/24/19 08:56 Tamsulosin HCl (Flomax) 0.4 mg BEDTIME ORAL 06/23/19 21:00 07/20/19 20:59 06/23/19 21:03 Thiamine HCl (Vitamin B1) 100 mg DAILY ORAL 06/24/19 09:00 07/20/19 08:59 06/24/19 08:49 Nelly Moore M.D. Jun 24, 2019 11:04
[2019-06-24 12:00] VITALS: BP 100/60
--- NOTE | 2019-06-24 12:30 | NUR ---
NURSE NOTES: Pt is resting with family (spouse) at bedside, watching TV. VS remain stable, pt is afebrile. Denies any pain or discomfort at this time. Tele monitor displays NSR. Pt remains on 4L of oxygen via nasal cannula with 99% O2Sat.
--- NOTE | 2019-06-24 14:00 | NUR ---
NURSE NOTES: Pt is asleep in no apparent distress, VS remain stable. Will continue to monitor.
--- NOTE | 2019-06-24 15:39 | Nephrology Progress Note ---
Assessment/Plan Status: stable Assessment/Plan: A/P 1) Encephalopathy- hepatic in nature. Resolved - continue lactulose - mentation back to normal 2) Hepatic Dysfunction- appreciate GI evaluation 3) Hypotension- hepatic in nature. Stable. Tx to Tele 4) FINA - Cr 1.2 improved 5)) Sepsis- cxs pending on Abx. Appreciate ID. Subjective Date patient seen: Jun 24, 2019 Time patient seen: 15:34 ROS Limited/Unobtainable: No Allergies: Coded Allergies: No Known Allergies (Unverified , 11/01/17) Subjective Patient appears much better this am. Feels better and mentation much improved Objective Last 24 Hour Vital Signs Date Time Temp Pulse Resp B/P (MAP) Pulse Ox O2 Delivery O2 Flow Rate FiO2 06/24/19 12:00 97.4 71 28 100/60 (73) 93 06/24/19 12:00 62 06/24/19 09:38 81 06/24/19 09:00 Nasal Cannula 4.0 06/24/19 08:00 97.0 73 20 101/58 (72) 94 06/24/19 04:00 86 06/24/19 04:00 97.3 72 20 100/62 (75) 96 06/24/19 00:00 98.0 72 20 92/56 (68) 96 06/24/19 00:00 70 06/24/19 00:00 Nasal Cannula 4.0 06/23/19 22:00 70 105/60 (75) 06/23/19 20:00 97.0 69 20 92/58 (69) 95 06/23/19 20:00 Nasal Cannula 4.0 06/23/19 20:00 67 06/23/19 16:00 98.0 74 20 104/63 (77) 93 06/23/19 16:00 74 06/23/19 16:00 Nasal Cannula 4.0 Intake and Output 06/23/19 06/24/19 19:00 07:00 Intake Total 2090.0 ml 1361.0 ml Balance 2090.0 ml 1361.0 ml Intake Oral 480 ml 240 ml IV Total 1610.0 ml 1121.0 ml # Voids 4 5 # Bowel Movements 8 7 Laboratory Tests 06/24/19 04:24: White Blood Count 9.4, Red Blood Count 2.75L, Hemoglobin 10.1L, Hematocrit 29.3L , Mean Corpuscular Volume 107H, Mean Corpuscular Hemoglobin 36.8H, Mean Corpuscular Hemoglobin Concent 34.6, Red Cell Distribution Width 12.2, Platelet Count 105L, Mean Platelet Volume 6.6, Neutrophils (%) (Auto) 64.9, Lymphocytes ( %) (Auto) 18.8L, Monocytes (%) (Auto) 9.5, Eosinophils (%) (Auto) 5.6H, Basophils (%) (Auto) 1.3, Sodium Level 137, Potassium Level 3.8, Chloride Level 111H, Carbon Dioxide Level 19L, Anion Gap 7, Blood Urea Nitrogen 13, Creatinine 1.2, Estimat Glomerular Filtration Rate > 60, Glucose Level 89, Calcium Level 7.9L Height (Feet): 5 Height (Inches): 8.00 Weight (Pounds): 171 General Appearance: no apparent distress EENT: normal ENT inspection Neck: normal alignment, supple Cardiovascular: normal rate, regular rhythm Respiratory/Chest: lungs clear, normal breath sounds Abdomen: non tender, soft Edema: no edema noted Arm (L), no edema noted Arm (R), no edema noted Leg (L), no edema noted Leg (R), no edema noted Pedal (L), no edema noted Pedal (R), no edema noted Generalized Girish Perry MD Jun 24, 2019 15:39
[2019-06-24 16:00] VITALS: BP 104/63
[2019-06-24] MEDS ORDERED: NS 275ml ONE ×2 (16:16→16:29)
[2019-06-24] MEDS ORDERED: Tubing IV Secondary IV ONE (16:29)
--- NOTE | 2019-06-24 17:00 | NUR ---
NURSE NOTES: Order has been received/noted for pt to be transferred to Tele per MD. Charge nurse has been notified. Awaiting for bed assignment/availability.
--- NOTE | 2019-06-24 17:11 | NUR ---
NURSE NOTES: Urine specimen was collected per MD order and will be sent to the lab for processing. Pt is resting in bed, watching TV with stable VS. Denies any pain or discomfort at this time.
--- NOTE | 2019-06-24 18:27 | NUR ---
TRANSFER TO FLOOR: Patient was transferred to Tele from [facility] via hospital bed while on Tele monitor on chest. Transfer hand off report was given to Ash WEAVER. Pt's belonging's list was checked with the receiving nurse in front of the pt. Endorsed plan of care. Skin has sacral erythema. Pt was transferred in stable condition with stable VS.
[2019-06-24] MEDS ORDERED: LORazepam Inj 2mg/ml 1ml IV PRN (18:45)
--- NOTE | 2019-06-24 19:46 | NUR ---
NURSE NOTES: Received patient from [facility] at 615pm. IVF cont'd. Patient eating dinner. Robitussin given and patient comfortable in bed . AOX4 , breathing easily with no sign of cardiac distress. Commode at bedside. Bed in lowest, locked postion with call nicole and urinal in reach.
--- NOTE | 2019-06-24 19:48 | NUR ---
NURSE NOTES: Report given to MEG Webster.
[2019-06-24 20:00] VITALS: BP 95/66
--- NOTE | 2019-06-24 20:30 | NUR ---
NURSE NOTES: Received patient from Ash WEAVER. Patient in bed, on 4L NC, no s/s of respiratory distress. Bed in low position, locked, bed alarm on, call light with reach.
[2019-06-24] MEDS ORDERED: Tamsulosin 0.4mg cap ORAL SCH (21:00)
[2019-06-25] VITALS (7 sets, daily range): BP systolic 94–114; BP diastolic 57–65
[2019-06-25 00:35] LABS: APPEARANCE,URINE CLEAR; BILIRUBIN, URINE NEGATIVE (NEGATIVE); COLOR,URINE PALE YELLOW; GLUCOSE, URINE (UA) NEGATIVE (NEGATIVE); KETONES,URINE NEGATIVE (NEGATIVE); LEUKOCYTE ESTERASE ,URINE NEGATIVE (NEGATIVE); NITRITE,URINE NEGATIVE (NEGATIVE); PH,URINE 6 (4.5-8.0); PROTEIN,URINE NEGATIVE (NEGATIVE); UROBILINOGEN,URINE NORMAL MG/DL (0.0-1.0)
[2019-06-25] MEDS: Piperacillin/Tazobactam 3.375 GM in NS 110 ML IVPB SCH ×3 (05:00→22:30)
[2019-06-25] MEDS: NovoLOG Insulin Flexpen SUBQ SCH ×4 (06:30→20:33)
--- NOTE | 2019-06-25 06:42 | NUR ---
NURSE NOTES: Blood sugar 66, patient awake, alert and responsive. Gave 2 cups of orange juice.
--- NOTE | 2019-06-25 07:06 | NUR ---
NURSE NOTES: Blood sugar 101.
--- NOTE | 2019-06-25 07:06 | NUR ---
NURSE NOTES: Received report from MEG Webster. Patient repositioned in bed to maximize best breathing positioning--4L O2 NC cont'd. No sign of respiratoyr or cardiac distress. Patient denies pain or discomfort. Bed in low, locked postion with call nicole and urinal in reach. Commode at bedside.
[2019-06-25 07:41] LABS: HEMATOCRIT 28.5 % (42.0-52.0); MEAN CORPUSCULAR VOLUME 105 FL (80-99); PLATELET COUNT 95 K/UL (150-450); RED BLOOD COUNT 2.72 M/UL (4.70-6.10); RED CELL DISTRIBUTION WIDTH 11.9 % (11.6-14.8)
[2019-06-25 08:10] LABS: ANION GAP 10 mmol/L (5-15); BLOOD UREA NITROGEN 9 mg/dL (7-18); CALCIUM 7.9 MG/DL (8.5-10.1); CARBON DIOXIDE 17 MMOL/L (21-32); CHLORIDE 110 MMOL/L (98-107); CREATININE 0.9 MG/DL (0.55-1.30); SODIUM 137 MMOL/L (136-145)
--- NOTE | 2019-06-25 08:42 | Pulmonology Progress Note ---
Assessment/Plan Assessment/Plan IMPRESSION: 1. Altered mental status, hepatic encephalopathy; better 2. Psych disorder. 3. Aspiration risk. 4. History of pulmonary fibrosis DISCUSSION: CXR shows chronic appearing changes; read by radiology as interstitial edema ON LOW FLOW O2 Continue abx Lactulose Juan Catalan M.D. Subjective Interval Events: None new Constitutional: Reports: no symptoms HEENT: Repors: no symptoms Respiratory: Reports: no symptoms Cardiovascular: Reports: no symptoms Gastrointestinal/Abdominal: Reports: no symptoms Genitourinary: Reports: no symptoms Allergies: Coded Allergies: No Known Allergies (Unverified , 11/01/17) Objective Last 24 Hour Vital Signs Date Time Temp Pulse Resp B/P (MAP) Pulse Ox O2 Delivery O2 Flow Rate FiO2 06/25/19 08:00 98.1 86 19 99/59 (72) 97 06/25/19 04:00 97.3 76 24 97/60 (72) 95 06/25/19 04:00 71 06/25/19 00:00 65 06/25/19 00:00 97.3 81 18 114/63 (80) 96 06/24/19 21:00 Nasal Cannula 3.0 06/24/19 20:00 96.8 66 20 95/66 (76) 96 06/24/19 20:00 64 06/24/19 16:00 97.5 69 25 104/63 (77) 91 06/24/19 16:00 62 06/24/19 12:00 97.4 71 28 100/60 (73) 93 06/24/19 12:00 62 06/24/19 09:38 81 06/24/19 09:00 Nasal Cannula 4.0 Intake and Output 06/24/19 06/25/19 19:00 07:00 Intake Total 1277.5 ml Balance 1277.5 ml Intake Oral 240 ml IV Total 1037.5 ml # Voids 3 # Bowel Movements 4 2 General Appearance: no acute distress HEENT: normocephalic Respiratory/Chest: chest wall non-tender, decreased breath sounds Cardiovascular: normal peripheral pulses, normal rate Abdomen: normal bowel sounds Microbiology Date/Time Source Procedure Growth Status 06/22/19 16:30 Blood Blood Culture - Preliminary NO GROWTH AFTER 48 HOURS Resulted 06/22/19 16:27 Blood Blood Culture - Preliminary NO GROWTH AFTER 48 HOURS Resulted 06/22/19 11:55 Blood Blood Culture - Preliminary NO GROWTH AFTER 48 HOURS Resulted 06/22/19 11:40 Blood Blood Culture - Preliminary NO GROWTH AFTER 48 HOURS Resulted 06/22/19 16:50 Stool Stool Culture - Preliminary NO SALMONELLA,SHIGELLA,OR CAMPYLOBACT... Resulted 06/22/19 16:50 Stool Clostridium difficile Toxin Assay - Final Complete Laboratory Tests 06/24/19 17:11: Urine Color Pale yellow, Urine Appearance Clear, Urine pH 6, Urine Specific [place] 1.015, Urine Protein Negative, Urine Glucose (UA) Negative, Urine Ketones Negative, Urine Blood 1+H, Urine Nitrite Negative, Urine Bilirubin Negative, Urine Urobilinogen Normal, Urine Leukocyte Esterase Negative, Urine RBC 2-4H, Urine WBC 0-2, Urine Squamous Epithelial Cells Occasional, Urine Bacteria Occasional 06/25/19 05:50: White Blood Count 7.0, Red Blood Count 2.72L, Hemoglobin 10.0L, Hematocrit 28.5L , Mean Corpuscular Volume 105H, Mean Corpuscular Hemoglobin 36.7H, Mean Corpuscular Hemoglobin Concent 35.0, Red Cell Distribution Width 11.9, Platelet Count 95L, Mean Platelet Volume 7.1, Neutrophils (%) (Auto) , Lymphocytes (%) ( Auto) , Monocytes (%) (Auto) , Eosinophils (%) (Auto) , Basophils (%) (Auto) , Neutrophils % (Manual) [Pending], Lymphocytes % (Manual) [Pending], Platelet Estimate [Pending], Platelet Morphology [Pending], Sodium Level 137, Potassium Level 4.0, Chloride Level 110H, Carbon Dioxide Level 17L, Anion Gap 10, Blood Urea Nitrogen 9, Creatinine 0.9, Estimat Glomerular Filtration Rate > 60, Glucose Level 70L, Calcium Level 7.9L Current Medications Medications (Trade) Dose Ordered Sig/Ceasar Route PRN Reason Start Time Stop Time Status Last Admin Dose Admin Aspirin (Ecotrin) 81 mg DAILY ORAL 06/25/19 09:00 07/20/19 08:59 Dextrose (Dextrose 50%) 25 ml Q30M PRN IV Hypoglycemia 06/24/19 19:00 07/19/19 21:29 Dextrose (Dextrose 50%) 50 ml Q30M PRN IV Hypoglycemia 06/24/19 19:00 07/19/19 21:29 Famotidine (Pepcid) 40 mg DAILY ORAL 06/25/19 09:00 07/20/19 08:59 Folic Acid (Folate) 1 mg DAILY ORAL 06/25/19 09:00 07/20/19 08:59 Guaifenesin/ Dextromethorphan (Robitussin DM Syrup) 10 ml Q4H PRN ORAL For Cough 06/24/19 18:45 07/22/19 14:43 06/24/19 23:08 Ibuprofen (Advil) 200 mg Q8H PRN ORAL Mild Pain/Temp > 100.5 06/24/19 18:00 07/23/19 17:59 Insulin Aspart (NovoLOG) BEFORE MEALS AND HS SUBQ 06/24/19 21:00 07/20/19 06:29 06/24/19 22:17 Lactulose (Cephulac) 10 gm TID ORAL 06/25/19 09:00 07/20/19 08:59 Lorazepam (Ativan 2mg/ml 1ml) 1 mg Q3H PRN IV For Anxiety 06/24/19 18:45 06/29/19 18:44 Midodrine (Pro-Amatine) 10 mg THREE TIMES A DAY ORAL 06/25/19 09:00 07/23/19 17:59 Multivitamins (Multivitamins) 1 tab DAILY ORAL 06/25/19 09:00 07/20/19 08:59 Piperacillin Sod/ Tazobactam Sod 3.375 gm/Sodium Chloride 110 ml @ 27.5 mls/hr EVERY 8 HOURS IVPB 06/24/19 22:00 06/29/19 21:59 06/25/19 05:00 Risperidone (RisperDAL) 0.5 mg BEDTIME ORAL 06/24/19 21:00 07/20/19 20:59 06/24/19 21:13 Sodium Chloride 1,000 ml @ 100 mls/hr Q10H IV 06/24/19 18:45 07/23/19 12:59 06/25/19 04:56 Tamsulosin HCl (Flomax) 0.4 mg BEDTIME ORAL 06/24/19 21:00 07/20/19 20:59 06/24/19 21:13 Thiamine HCl (Vitamin B1) 100 mg DAILY ORAL 06/25/19 09:00 07/20/19 08:59 Juan Catalan MD Jun 25, 2019 08:42
[2019-06-25] MEDS ORDERED: Aspirin EC 81mg tab ORAL SCH (09:00)
[2019-06-25] MEDS ORDERED: Thiamine 100mg tab ORAL SCH (09:00)
[2019-06-25] MEDS: Guaifenesin/DM 10ml syrup ORAL PRN ×3 (09:04→20:02)
[2019-06-25] MEDS: Lactulose 20gm/30ml UDC ORAL SCH ×3 (09:05→17:06)
[2019-06-25] MEDS: Midodrine 10mg tab ORAL SCH ×3 (09:06→17:06)
--- NOTE | 2019-06-25 11:04 | General Progress Note ---
Assessment/Plan Status: stable Assessment/Plan: Assessment - (R) sided colitis --> need to check C Diff --> negative - diverticulosis - thickening in (L) colon --> patient / agreeable to colonoscopy - cirrhosis with portal HTN - vertebral compression fracture - pulmonary fibrosis Recommendations - continue lactulose>>> decreased by half yesterday given severe diarrhea - pulmonary f/u - cardiology f/u - will need eventual colonoscopy - will likely also do EGD to status for varicies>>> to be scheduled by Dr Toribio Subjective Allergies: Coded Allergies: No Known Allergies (Unverified , 11/01/17) Objective Last 24 Hour Vital Signs Date Time Temp Pulse Resp B/P (MAP) Pulse Ox O2 Delivery O2 Flow Rate FiO2 06/25/19 09:00 Nasal Cannula 3.0 06/25/19 08:00 95 06/25/19 08:00 98.1 86 19 99/59 (72) 97 06/25/19 04:00 97.3 76 24 97/60 (72) 95 06/25/19 04:00 71 06/25/19 00:00 65 06/25/19 00:00 97.3 81 18 114/63 (80) 96 06/24/19 21:00 Nasal Cannula 3.0 06/24/19 20:00 96.8 66 20 95/66 (76) 96 06/24/19 20:00 64 06/24/19 16:00 97.5 69 25 104/63 (77) 91 06/24/19 16:00 62 06/24/19 12:00 97.4 71 28 100/60 (73) 93 06/24/19 12:00 62 Intake and Output 06/24/19 06/25/19 19:00 07:00 Intake Total 1277.5 ml Balance 1277.5 ml Intake Oral 240 ml IV Total 1037.5 ml # Voids 3 # Bowel Movements 4 2 Laboratory Tests 06/24/19 17:11: Urine Color Pale yellow, Urine Appearance Clear, Urine pH 6, Urine Specific [place] 1.015, Urine Protein Negative, Urine Glucose (UA) Negative, Urine Ketones Negative, Urine Blood 1+H, Urine Nitrite Negative, Urine Bilirubin Negative, Urine Urobilinogen Normal, Urine Leukocyte Esterase Negative, Urine RBC 2-4H, Urine WBC 0-2, Urine Squamous Epithelial Cells Occasional, Urine Bacteria Occasional 06/25/19 05:50: White Blood Count 7.0, Red Blood Count 2.72L, Hemoglobin 10.0L, Hematocrit 28.5L , Mean Corpuscular Volume 105H, Mean Corpuscular Hemoglobin 36.7H, Mean Corpuscular Hemoglobin Concent 35.0, Red Cell Distribution Width 11.9, Platelet Count 95L, Mean Platelet Volume 7.1, Neutrophils (%) (Auto) , Lymphocytes (%) ( Auto) , Monocytes (%) (Auto) , Eosinophils (%) (Auto) , Basophils (%) (Auto) , Neutrophils % (Manual) [Pending], Lymphocytes % (Manual) [Pending], Platelet Estimate [Pending], Platelet Morphology [Pending], Sodium Level 137, Potassium Level 4.0, Chloride Level 110H, Carbon Dioxide Level 17L, Anion Gap 10, Blood Urea Nitrogen 9, Creatinine 0.9, Estimat Glomerular Filtration Rate > 60, Glucose Level 70L, Calcium Level 7.9L Height (Feet): 5 Height (Inches): 8.00 Weight (Pounds): 171 General Appearance: alert EENT: normal ENT inspection Neck: supple Cardiovascular: normal rate Respiratory/Chest: decreased breath sounds Abdomen: normal bowel sounds, non tender, soft Extremities: non-tender Ian Rico MD Jun 25, 2019 11:04
--- NOTE | 2019-06-25 12:48 | Nephrology Progress Note ---
Assessment/Plan Status: stable Assessment/Plan: A/P 1) Encephalopathy- hepatic in nature. Resolved - continue lactulose - DC home tomorrow with HH/PT 2) Hepatic Dysfunction- appreciate GI evaluation - DC tomorrow once cleared by GI 3) Hypotension- hepatic in nature. Stable. Tx to MedSurg 4) FINA - resolved 5)) Sepsis- cxs pending on Abx. Appreciate ID. Subjective Date patient seen: Jun 25, 2019 Time patient seen: 12:47 ROS Limited/Unobtainable: No Allergies: Coded Allergies: No Known Allergies (Unverified , 11/01/17) Subjective Patient eating well and feeling better Objective Last 24 Hour Vital Signs Date Time Temp Pulse Resp B/P (MAP) Pulse Ox O2 Delivery O2 Flow Rate FiO2 06/25/19 12:00 82 06/25/19 12:00 97.9 71 19 100/58 (72) 97 06/25/19 09:00 Nasal Cannula 3.0 06/25/19 08:00 95 06/25/19 08:00 98.1 86 19 99/59 (72) 97 06/25/19 04:00 97.3 76 24 97/60 (72) 95 06/25/19 04:00 71 06/25/19 00:00 65 06/25/19 00:00 97.3 81 18 114/63 (80) 96 06/24/19 21:00 Nasal Cannula 3.0 06/24/19 20:00 96.8 66 20 95/66 (76) 96 06/24/19 20:00 64 06/24/19 16:00 97.5 69 25 104/63 (77) 91 06/24/19 16:00 62 Intake and Output 06/24/19 06/25/19 19:00 07:00 Intake Total 1277.5 ml Balance 1277.5 ml Intake Oral 240 ml IV Total 1037.5 ml # Voids 3 # Bowel Movements 4 2 Laboratory Tests 06/24/19 17:11: Urine Color Pale yellow, Urine Appearance Clear, Urine pH 6, Urine Specific [place] 1.015, Urine Protein Negative, Urine Glucose (UA) Negative, Urine Ketones Negative, Urine Blood 1+H, Urine Nitrite Negative, Urine Bilirubin Negative, Urine Urobilinogen Normal, Urine Leukocyte Esterase Negative, Urine RBC 2-4H, Urine WBC 0-2, Urine Squamous Epithelial Cells Occasional, Urine Bacteria Occasional 06/25/19 05:50: White Blood Count 7.0, Red Blood Count 2.72L, Hemoglobin 10.0L, Hematocrit 28.5L , Mean Corpuscular Volume 105H, Mean Corpuscular Hemoglobin 36.7H, Mean Corpuscular Hemoglobin Concent 35.0, Red Cell Distribution Width 11.9, Platelet Count 95L, Mean Platelet Volume 7.1, Neutrophils (%) (Auto) , Lymphocytes (%) ( Auto) , Monocytes (%) (Auto) , Eosinophils (%) (Auto) , Basophils (%) (Auto) , Differential Total Cells Counted 100, Neutrophils % (Manual) 61, Lymphocytes % ( Manual) 18L, Monocytes % (Manual) 12H, Eosinophils % (Manual) 8H, Basophils % ( Manual) 1, Band Neutrophils 0, Platelet Estimate DecreasedL, Platelet Morphology Normal, Hypochromasia 1+, Anisocytosis 1+, Macrocytosis 1+, Sodium Level 137, Potassium Level 4.0, Chloride Level 110H, Carbon Dioxide Level 17L, Anion Gap 10, Blood Urea Nitrogen 9, Creatinine 0.9, Estimat Glomerular Filtration Rate > 60, Glucose Level 70L, Calcium Level 7.9L Height (Feet): 5 Height (Inches): 8.00 Weight (Pounds): 171 General Appearance: no apparent distress, alert EENT: normal ENT inspection Neck: normal alignment, supple Cardiovascular: normal rate, regular rhythm Respiratory/Chest: lungs clear, normal breath sounds Abdomen: non tender, soft Edema: no edema noted Arm (L), no edema noted Arm (R), no edema noted Leg (L), no edema noted Leg (R), no edema noted Pedal (L), no edema noted Pedal (R), no edema noted Generalized Girish Perry MD Jun 25, 2019 12:48
--- NOTE | 2019-06-25 16:11 | NUR ---
NURSE NOTES: RECEIVED PATIENT A/A/OX3, FORGETFUL. PERSONAL BELONGINGS NOTED ( BROUGHT SOME OF HIS BELONGINGS HOME SUCH HIS MONEY AND WATCH). SKIN ASSESSMENT RENDERED AND WOUND PHOTO TAKEN AND UPLOADED AND TREATED. ON O2 2L VIA NC. IV ACCESS PATENT AND INTACT. ABLE TO VERBALIZE NEEDS. SIDERAILS ARE UP X3, HOB ELEVATED FOR ADEQUATE VENTILATION. BED IS IN THE LOWEST POSITION AND LOCKED. CALL LIGHT IS WITHIN REACH. WILL CONT TO MONITOR.
--- NOTE | 2019-06-25 16:14 | NUR ---
NURSE NOTES: Report given to MEG Hawthorne on 4E. Belongings verified. IVF / Zosyn cont'd. O2 @3L NC. VSS and patient aox3 with calm,comfortable affect. SCDs cont'd and in use on 4E. Pictures of sacral wound taken with Marine.
[2019-06-25] MEDS ORDERED: LORazepam Inj 2mg/ml 1ml IV PRN (16:15)
--- NOTE | 2019-06-25 18:57 | NUR ---
HAND-OFF: Report given to Minsu.
--- NOTE | 2019-06-25 19:22 | NUR ---
NURSE NOTES: Received report from MEG Hawthorne. Patient asleep. No s/s of distress, discomfort, or pain noted at this time. IV site intact. Breathing unlabored without distress on 2L O2 via NC. Bed placed at the lowest with alarm, brake, and siderails up for safety. SCDs on and working properly. Call light placed within reach. Will continue to monitor and provide care as ordered.
[2019-06-25] MEDS ORDERED: Tamsulosin 0.4mg cap ORAL SCH (21:00)
[2019-06-26] VITALS: BP 117/60
--- NOTE | 2019-06-26 00:45 | Progress Note ---
DATE: 06/25/2019 SUBJECTIVE: The patient is feeling better. More energetic. Sleep is adequate. Episodes of confusion. No behavior issues noted. Forgetful. Less anxious. MENTAL STATUS EXAMINATION: Alert, oriented times self, place. Knew the month and year. Mood is neutral. Affect is flat. Thought process concrete. Thought content, no suicidal or homicidal ideation. Thought symptoms, no suicidal or homicidal ideation. Memory is impaired. Insight and judgment non-existent. ASSESSMENT: Acute encephalopathy, improved. PLAN: 1. Continue the current psychotropic medications. 2. Provide the patient with reality orientation. Yoly Johnson M.D. DR: SHAW JOB#: [id number] CC:
--- NOTE | 2019-06-26 02:30 | NUR ---
NURSE NOTES: changed sacral dressing as ordered. explained patient prior and during the procedure. Patient tolerated the procedure well.
[2019-06-26] MEDS: Guaifenesin/DM 10ml syrup ORAL PRN ×2 (02:53→12:47)
[2019-06-26 04:00] VITALS: BP 107/59
[2019-06-26] MEDS: NovoLOG Insulin Flexpen SUBQ SCH ×3 (05:50→17:42)
[2019-06-26] MEDS: Piperacillin/Tazobactam 3.375 GM in NS 110 ML IVPB SCH ×2 (05:55→13:52)
--- NOTE | 2019-06-26 07:30 | NUR ---
NURSE NOTES: Received pt from MINSU RN. Pt is alert and orient. pt has NC 3lmp. pt has intact iv access RFA 22G is running well. pt is eating breakfast independently. all needs attended, bed is locked and is in the lowest position, call light within easy reach. will continue to monitor.
--- NOTE | 2019-06-26 07:47 | NUR ---
HAND-OFF: Report given to MEG Arteaga.
--- NOTE | 2019-06-26 07:59 | Nephrology Progress Note ---
Assessment/Plan Status: stable Assessment/Plan: A/P 1) Encephalopathy- hepatic in nature. Resolved - continue lactulose at DC - DC home today with HH/PT as and patient declined rehab 2) Hepatic Dysfunction- appreciate GI evaluation - DC today once cleared by GI 3) Hypotension- hepatic in nature. Stable. 4) FINA - resolved 5)) Sepsis- cxs pending on Abx. Appreciate ID. Subjective Date patient seen: Jun 26, 2019 Time patient seen: 07:57 ROS Limited/Unobtainable: No Allergies: Coded Allergies: No Known Allergies (Unverified , 11/01/17) Subjective Patient coherent, much improved Objective Last 24 Hour Vital Signs Date Time Temp Pulse Resp B/P (MAP) Pulse Ox O2 Delivery O2 Flow Rate FiO2 06/26/19 04:00 97.4 80 19 107/59 (75) 95 06/26/19 02:02 Nasal Cannula 3.0 06/26/19 00:00 97.9 70 19 117/60 (79) 98 06/25/19 21:00 Nasal Cannula 3.0 06/25/19 20:00 97.3 73 19 105/59 (74) 98 06/25/19 16:00 97.3 69 18 94/57 (69) 96 06/25/19 15:27 97.3 75 19 102/65 (77) 95 06/25/19 12:00 82 06/25/19 12:00 97.9 71 19 100/58 (72) 97 06/25/19 09:00 Nasal Cannula 3.0 06/25/19 08:00 95 06/25/19 08:00 98.1 86 19 99/59 (72) 97 Intake and Output 06/25/19 06/26/19 19:00 07:00 Intake Total 902.5 ml 830.0 ml Output Total 400 ml Balance 502.5 ml 830.0 ml Intake Oral 820 ml 120 ml IV Total 82.5 ml 710.0 ml Output Urine Total 400 ml # Voids 3 3 # Bowel Movements 4 4 Height (Feet): 5 Height (Inches): 8.00 Weight (Pounds): 171 General Appearance: no apparent distress, alert EENT: normal ENT inspection Neck: normal alignment, supple Cardiovascular: normal rate, regular rhythm Respiratory/Chest: lungs clear, normal breath sounds Abdomen: non tender, soft Edema: no edema noted Arm (L), no edema noted Arm (R), no edema noted Leg (L), no edema noted Leg (R), no edema noted Pedal (L), no edema noted Pedal (R), no edema noted Generalized Girish Perry MD Jun 26, 2019 07:59
[2019-06-26 08:00] VITALS: BP 122/58
--- NOTE | 2019-06-26 08:02 | Discharge Instructions ---
Discharge Instructions Discharge Instructions Services at Discharge: home health services Diet: 2 GM sodium (low sodium) Resume Normal Activity?: Yes Activity: light activity Follow Up Orders [facility] Continue lactulose tid for 1 BM per day For Congestive Heart Failure Reminder Report to your physician any weight gain of 5 pounds or more in one week. Girish Perry MD Jun 26, 2019 08:02
[2019-06-26] MEDS ORDERED: Thiamine 100mg tab ORAL SCH (09:00)
[2019-06-26] MEDS ORDERED: Aspirin EC 81mg tab ORAL SCH (09:00)
[2019-06-26] MEDS: Lactulose 20gm/30ml UDC ORAL SCH ×3 (09:22→17:42)
[2019-06-26] MEDS: Midodrine 10mg tab ORAL SCH ×3 (09:22→17:42)
--- NOTE | 2019-06-26 09:38 | Pulmonology Progress Note ---
Assessment/Plan Assessment/Plan IMPRESSION: 1. Altered mental status, hepatic encephalopathy; better 2. Psych disorder. 3. Aspiration risk. 4. History of pulmonary fibrosis DISCUSSION: CXR shows chronic appearing changes; read by radiology as interstitial edema ON LOW FLOW O2 Continue abx Lactulose Juan Catalan M.D. Subjective Interval Events: None new Constitutional: Reports: no symptoms HEENT: Repors: no symptoms Respiratory: Reports: no symptoms Cardiovascular: Reports: no symptoms Allergies: Coded Allergies: No Known Allergies (Unverified , 11/01/17) Objective Last 24 Hour Vital Signs Date Time Temp Pulse Resp B/P (MAP) Pulse Ox O2 Delivery O2 Flow Rate FiO2 06/26/19 08:00 97.5 89 17 122/58 (79) 98 06/26/19 04:00 97.4 80 19 107/59 (75) 95 06/26/19 02:02 Nasal Cannula 3.0 06/26/19 00:00 97.9 70 19 117/60 (79) 98 06/25/19 21:00 Nasal Cannula 3.0 06/25/19 20:00 97.3 73 19 105/59 (74) 98 06/25/19 16:00 97.3 69 18 94/57 (69) 96 06/25/19 15:27 97.3 75 19 102/65 (77) 95 06/25/19 12:00 82 06/25/19 12:00 97.9 71 19 100/58 (72) 97 Intake and Output 06/25/19 06/26/19 19:00 07:00 Intake Total 902.5 ml 830.0 ml Output Total 400 ml Balance 502.5 ml 830.0 ml Intake Oral 820 ml 120 ml IV Total 82.5 ml 710.0 ml Output Urine Total 400 ml # Voids 3 3 # Bowel Movements 4 4 General Appearance: no acute distress HEENT: normocephalic Respiratory/Chest: chest wall non-tender, lungs clear Cardiovascular: normal peripheral pulses Current Medications Medications (Trade) Dose Ordered Sig/Ceasar Route PRN Reason Start Time Stop Time Status Last Admin Dose Admin Aspirin (Ecotrin) 81 mg DAILY ORAL 06/26/19 09:00 07/20/19 08:59 06/26/19 09:22 Dextrose (Dextrose 50%) 25 ml Q30M PRN IV Hypoglycemia 06/25/19 16:30 07/19/19 21:29 Dextrose (Dextrose 50%) 50 ml Q30M PRN IV Hypoglycemia 06/25/19 16:30 07/19/19 21:29 Famotidine (Pepcid) 40 mg DAILY ORAL 06/26/19 09:00 07/20/19 08:59 06/26/19 09:22 Folic Acid (Folate) 1 mg DAILY ORAL 06/26/19 09:00 07/20/19 08:59 06/26/19 09:22 Guaifenesin/ Dextromethorphan (Robitussin DM Syrup) 10 ml Q4H PRN ORAL For Cough 06/25/19 16:15 07/22/19 16:14 06/26/19 02:53 Ibuprofen (Advil) 200 mg Q8H PRN ORAL Mild Pain/Temp > 100.5 06/25/19 18:00 07/23/19 17:59 Insulin Aspart (NovoLOG) BEFORE MEALS AND HS SUBQ 06/25/19 16:30 07/20/19 06:29 06/25/19 17:08 Lactulose (Cephulac) 10 gm TID ORAL 06/25/19 18:00 07/20/19 08:59 06/26/19 09:22 Lorazepam (Ativan 2mg/ml 1ml) 1 mg Q3H PRN IV For Anxiety 06/25/19 16:15 06/29/19 16:14 Midodrine (Pro-Amatine) 10 mg THREE TIMES A DAY ORAL 06/25/19 18:00 07/23/19 17:59 06/26/19 09:22 Multivitamins (Multivitamins) 1 tab DAILY ORAL 06/26/19 09:00 07/20/19 08:59 06/26/19 09:22 Piperacillin Sod/ Tazobactam Sod 3.375 gm/Sodium Chloride 110 ml @ 27.5 mls/hr EVERY 8 HOURS IVPB 06/25/19 22:00 06/30/19 21:59 06/26/19 05:55 Risperidone (RisperDAL) 0.5 mg BEDTIME ORAL 06/25/19 21:00 07/20/19 20:59 06/25/19 20:17 Sodium Chloride 1,000 ml @ 100 mls/hr Q10H IV 06/25/19 16:15 07/23/19 12:59 06/26/19 05:55 Tamsulosin HCl (Flomax) 0.4 mg BEDTIME ORAL 06/25/19 21:00 07/20/19 20:59 06/25/19 20:18 Thiamine HCl (Vitamin B1) 100 mg DAILY ORAL 06/26/19 09:00 07/20/19 08:59 06/26/19 09:21 Juan Catalan MD Jun 26, 2019 09:38
--- NOTE | 2019-06-26 11:00 | NUR ---
PT EVALUATION NOTE Patient seen for initial evaluation. Patient presents with generalized weakness which affects patient's ability to perform mobility tasks. Patient requires SBA for transfers, able to ambulate 40 ft with SBA and SPC. Patient ambulated while on supplemental O2. Ambulation distance/endurance limited by c/o SOB with patient desaturating, instructed in proper breathing techniques. Patient will benefit from skilled inpatient PT intervention to address overall strength, proper breathing techniques for improved endurance and functional mobility skills to return to prior level of function. Recommend discharge home with home PT once medically cleared by MD. No DME needs recommended at this time. Addendum: 06/26/19 at 1246 by LIO STODDARD PT Amended: Links added.
[2019-06-26 12:00] VITALS: BP 111/69
--- NOTE | 2019-06-26 12:32 | NUR ---
NURSE NOTES: RN called Dr HEAD and Dr VARMA [address] HEAD called back at 1200 and ordered to give last dose of zocyn before leaving and Dr BENITEZ Addendum: 06/26/19 at 1235 by Jenni Arroyo RN Dr VARMA cleared pt now. will continue to monitor.
[2019-06-26 16:00] VITALS: BP 127/59
--- NOTE | 2019-06-26 17:25 | Infectious Diseases Prog Note ---
Assessment/Plan Assessment/Plan Abx: Zosyn 06/22 Assessment: Sepsis (not present on admission)- r/o aspiration PNA, UTI, bacteremia -06/22 Bcx NTD -06/19 u/a neg CXR: Correlate cardiomegaly. Suspect bilateral interstitial edema Fever, SP Mild leukocytosis, SP Acute encephalopathy -CT head: Mild age-related volume loss. Negative for acute intracranial bleed or mass effect. Colitis -Cdiff neg -stool cx normal enteric loyd -outpatient colonoscopy AST and Tbili elevation/ Cirrhosis on CT -Abd US: Limited exam, as described. Negative for gallstones or dilated bile ducts. Hepatic surface nodularity, also described on recent CT scan, consistent with early cirrhotic change. Upper limits normal size spleen -acute hep panel, HIV sc neg -CT abd/p: Marked wall thickening of the ascending colon and proximal transverse colon with associated edema of the pericolonic fat. This is consistent with colitis,nonspecific as regards etiology. Colonic diverticulosis. Wall thickening of the mid sigmoid is noted, probably represents circular muscle hypertrophy related to such. However, the possibility of a sigmoid neoplasm in this location should also be considered. Evidence of hepatic cirrhosis, with hepatic surface nodularity. Evidence of portal hypertension, with ascites, perisplenic perigastric and periesophageal varices, mild splenomegaly. Distended gallbladder without definite gallstones. Gallbladder wall thickening and edema is probably related to the hepatocellular abnormality, but the possibility of acute cholecystitis either due to occult stone disease or acalculous should also be considered. Extensive pulmonary parenchymal disease, as described. Mostly if not exclusively due to end-stage pulmonary fibrosis. Confluent opacities in the right lung probably represent confluent scarring, but could also represent areas of acute infiltrate. T9 vertebral body compression fracture deformity, with approximately 60% height loss, to indeterminate but progressive since a thoracic spine CT of 11/02/2017. 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 -f/u cx -Monitor CBC/CMP, temperatures -f/u Bcx x2 -aspiration precautions -GI f/u Thank you for this consultation. Will continue to follow along with you. Subjective Allergies: Coded Allergies: No Known Allergies (Unverified , 11/01/17) Subjective Afebrile. States he feels better. NAEON per nurse. Objective Vital Signs Last 24 Hour Vital Signs Date Time Temp Pulse Resp B/P (MAP) Pulse Ox O2 Delivery O2 Flow Rate FiO2 06/26/19 16:00 98.8 83 17 127/59 (81) 95 06/26/19 12:00 97.8 81 18 111/69 (83) 96 06/26/19 09:00 Nasal Cannula 3.0 06/26/19 08:00 97.5 89 17 122/58 (79) 98 06/26/19 04:00 97.4 80 19 107/59 (75) 95 06/26/19 02:02 Nasal Cannula 3.0 06/26/19 00:00 97.9 70 19 117/60 (79) 98 06/25/19 21:00 Nasal Cannula 3.0 06/25/19 20:00 97.3 73 19 105/59 (74) 98 Height (Feet): 5 Height (Inches): 8.00 Weight (Pounds): 171 Objective Gen: NAD HEENT: anicteric sclera CV: RRR Resp: faint fine crackles diffuse. RRR Abd: soft. no TTP Neuro: awake Current Medications Medications (Trade) Dose Ordered Sig/Ceasar Route PRN Reason Start Time Stop Time Status Last Admin Dose Admin Aspirin (Ecotrin) 81 mg DAILY ORAL 06/26/19 09:00 07/20/19 08:59 06/26/19 09:22 Dextrose (Dextrose 50%) 25 ml Q30M PRN IV Hypoglycemia 06/25/19 16:30 07/19/19 21:29 Dextrose (Dextrose 50%) 50 ml Q30M PRN IV Hypoglycemia 06/25/19 16:30 07/19/19 21:29 Famotidine (Pepcid) 40 mg DAILY ORAL 06/26/19 09:00 07/20/19 08:59 06/26/19 09:22 Folic Acid (Folate) 1 mg DAILY ORAL 06/26/19 09:00 07/20/19 08:59 06/26/19 09:22 Guaifenesin/ Dextromethorphan (Robitussin DM Syrup) 10 ml Q4H PRN ORAL For Cough 06/25/19 16:15 07/22/19 16:14 06/26/19 12:47 Ibuprofen (Advil) 200 mg Q8H PRN ORAL Mild Pain/Temp > 100.5 06/25/19 18:00 07/23/19 17:59 Insulin Aspart (NovoLOG) BEFORE MEALS AND HS SUBQ 06/25/19 16:30 07/20/19 06:29 06/25/19 17:08 Lactulose (Cephulac) 10 gm TID ORAL 06/25/19 18:00 07/20/19 08:59 06/26/19 12:41 Lorazepam (Ativan 2mg/ml 1ml) 1 mg Q3H PRN IV For Anxiety 06/25/19 16:15 06/29/19 16:14 Midodrine (Pro-Amatine) 10 mg THREE TIMES A DAY ORAL 06/25/19 18:00 07/23/19 17:59 06/26/19 12:41 Multivitamins (Multivitamins) 1 tab DAILY ORAL 06/26/19 09:00 07/20/19 08:59 06/26/19 09:22 Piperacillin Sod/ Tazobactam Sod 3.375 gm/Sodium Chloride 110 ml @ 27.5 mls/hr EVERY 8 HOURS IVPB 06/25/19 22:00 06/30/19 21:59 06/26/19 13:52 Risperidone (RisperDAL) 0.5 mg BEDTIME ORAL 06/25/19 21:00 07/20/19 20:59 06/25/19 20:17 Sodium Chloride 1,000 ml @ 100 mls/hr Q10H IV 06/25/19 16:15 07/23/19 12:59 06/26/19 05:55 Tamsulosin HCl (Flomax) 0.4 mg BEDTIME ORAL 06/25/19 21:00 07/20/19 20:59 06/25/19 20:18 Thiamine HCl (Vitamin B1) 100 mg DAILY ORAL 06/26/19 09:00 07/20/19 08:59 06/26/19 09:21 Heriberto Lara MD Jun 26, 2019 17:25
--- NOTE | 2019-06-26 18:02 | General Progress Note ---
Assessment/Plan Status: stable Assessment/Plan: Assessment - (R) sided colitis --> need to check C Diff --> negative - diverticulosis - thickening in (L) colon --> patient / agreeable to colonoscopy - cirrhosis with portal HTN - vertebral compression fracture - pulmonary fibrosis Recommendations - continue lactulose - pulmonary f/u - cardiology f/u - Outpatient EGD/Colon Subjective Allergies: Coded Allergies: No Known Allergies (Unverified , 11/01/17) Subjective Feels OK alert and coherent today scheduled for d/c today advised needs to see me for outpatient colon to r/o CA gave patient my card Objective Last 24 Hour Vital Signs Date Time Temp Pulse Resp B/P (MAP) Pulse Ox O2 Delivery O2 Flow Rate FiO2 06/26/19 16:00 98.8 83 17 127/59 (81) 95 06/26/19 12:00 97.8 81 18 111/69 (83) 96 06/26/19 09:00 Nasal Cannula 3.0 06/26/19 08:00 97.5 89 17 122/58 (79) 98 06/26/19 04:00 97.4 80 19 107/59 (75) 95 06/26/19 02:02 Nasal Cannula 3.0 06/26/19 00:00 97.9 70 19 117/60 (79) 98 06/25/19 21:00 Nasal Cannula 3.0 06/25/19 20:00 97.3 73 19 105/59 (74) 98 Intake and Output 06/25/19 06/26/19 19:00 07:00 Intake Total 902.5 ml 930.0 ml Output Total 400 ml Balance 502.5 ml 930.0 ml Intake Oral 820 ml 120 ml IV Total 82.5 ml 810.0 ml Output Urine Total 400 ml # Voids 3 3 # Bowel Movements 4 4 Height (Feet): 5 Height (Inches): 8.00 Weight (Pounds): 171 Objective WDWN NCAT supple CTA RR Abd soft no edema Laura Toribio MD Jun 26, 2019 18:02
--- NOTE | 2019-06-26 18:39 | NUR ---
NURSE NOTES: pt has discharge order to go home with HH. Per Dr MARIN HH is arranged by him. all D/C assessments and instructions done and pt verbally confirmed to understand all. pt is stable, V/S stable. ABX ZOSYN finished. all belongings is with pt and pt signed list. dressed up done . pt' is aware about D/C and waiting for him at home. sacral wound taken picture and downloaded. waiting for ambulance to bulk picker pt. will continue to monitor.
--- NOTE | 2019-06-26 19:11 | NUR ---
HAND-OFF: Report given to RN MINSU.
--- NOTE | 2019-06-26 19:43 | NUR ---
NURSE NOTES: Received report from MEG Arteaga. Patient awake and alert and verbally responsive to let his needs known. Breathing unlabored without distress on room air. Refuses to wear oxygen at this time. IV intact on right forearm. Patient is ready for discharge and sitting on a chair close to door. Patient refuses to go back near to the bed. Will continue to monitor and frequently ask for anything in need.
--- NOTE | 2019-06-26 20:47 | NUR ---
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 Patient breathing unlabored without distress on 2L O2 via NC. Patient had sacral dressing changed today. IV removed and ID removed. Belonging confirmed the patient. Patient verbalized and confirmed all belonging. Patient discharged to home with home health. VS: 133/79, RR 18, HR 97 O2Sat 94% temp.97F. Patient discharged in stable condition. Education was provided and information about home health given.
--- NOTE | 2019-06-27 13:27 | Discharge Summary ---
Discharge Summary Discharge Summary _ DATE OF ADMISSION: 06/19/2019 DATE OF DISCHARGE: 06/26/2019 DISCHARGED BY: Dr. Perry REASON FOR ADMISSION: 68 years old male with past medical history of diabetes mellitus, seizure disorder, opiate abuse, bipolar disorder presented for evaluation due to altered mental status. According to EMS, the patient psychiatrist called managed care provider to go to his house and bring the patient to the hospital for evaluation. The psychiatrist was reportedly contacted by the patient's , who stated that over the past 3 days patient had increased lethargy and was becoming more and more confused. No reported trauma or injury. No reported fever or chills. Per EMS blood sugar was 120. EKG reveals sinus rhythm, no acute ischemic changes. Upon evaluation patient was oriented to self , but not to time or situation. Vital signs were stable. Laboratory work-up revealed no leukocytosis, hemoglobin 13.2, hematocrit 36.1. Platelet count 119. Stable electrolytes. BUN 15, creatinine 1.3. Glucose 125. Lactic acid 2.7. Total bilirubin 2.4 , direct bilirubin 0.9. AST 51, ALT 29. Ammonia 92. Total CK 151. Troponin negative. Serum salicylates , Tylenol and alcohol level were all negative. Urine toxicology screen was negative. Urinalysis revealed no evidence of urinary tract infection. EKG revealed normal sinus rhythm with prolonged NJ and prolonged QT interval but no acute ischemic changes. Chest x-ray revealed cardiomegaly, suspected bilateral interstitial edema. CT of the head showed mild age-related volume loss , but was negative for acute intracranial bleeding or mass-effect. Patient's was contacted by the emergency room physician for additiional information. According to her, patient was seizure-free for the past two years. His mentation was declining steadily over the past 2 to 3 days, and he became more somnolent and lethargic. Patient had chronic cough and pulmonary fibrosis . Patient was without Abilify for approximately 1 week and was found on the floor without any reported seizure-like activities. Patient subsequently admitted to monitored floor for further management. CONSULTANTS: yacht builder Dr. Bai ID specialist Dr. Moore GI specialist Dr. Toribio psychiatrist [facility] COURSE: Patient admitted to monitored floor. GI specialist seen the patient for elevated ammonia . Patient started on lactulose . Patient had abnormal liver tests , depressed platelet count , suspicious for chronic liver disease. CT scan of the abdomen pelvis was done and revealed marked wall thickening of the ascending colon and proximal transverse colon with associated edema of the pericolonic fat, consistent with colitis. Evidence of hepatic cirrhosis with hepatic surface nodularity. Evidence of portal hypertension with ascites, perisplenic perigastric and periesophageal varices, mild splenomegaly. Colonic diverticulosis. Distended gallbladder without definite gallstones. Extensive pulmonary parenchymal disease, most likely due to end-stage pulmonary fibrosis T9 vertebral body compression fracture deformity. Alpha-fetoprotein level was checked to rule out hepatocellular carcinoma and was stable - 1.9. Hepatitis panel was negative. HIV test was nonreactive. Abdominal ultrasound was negative for gallstones or dilated bile ducts. Hepatic surface nodularity, described on recent CT scan , was consistent with early cirrhotic changes. Ammonia trended down from 92 to 63. AST with small trend down from 51 to 48 , ALT remained stable. Total bilirubin from 2.4 down to 1.3. Patient started on multivitamin , thiamine and folate. CT scan also revealed right-sided colitis. Stool for C. difficile was negative. CT scan also showed thickening in the left colon. Patient and his agreeable to colonoscopy. EGD and colonoscopy could be done as outpatient as per GI specialist. Bowel regimen instituted. GI prophylaxis provided. Lactulose continued. Electrical Test Engineer followed. Chest x-ray showed chronic appearing changes. Supplemental oxygen titrated to keep pulse oximetry above 92% , pulmonary toilet with bronchodilator therapy provided as needed. Prior to discharge pulse oximetry stable on 3 L of oxygen via nasal cannula. Infectious disease specialist followed. Patient had leukocytosis for 1 day. Patient was on empiric antibiotics as per ID specialist recommendation. Stool for C. difficile was negative, and stool culture was negative. Urinalysis was unremarkable . Blood cultures were negative. Mild leukocytosis and fever resolved. Patient completed antibiotic course while in the hospital. Aspiration precaution maintained. Blood pressure was closely monitored and supported with midodrine. All antihypertensive medications were on hold. Echocardiogram revealed preserved ejection fraction 55% with no evidence of wall motion abnormality. No evidence of left ventricular hypertrophy. No evidence of pericardial effusion. Right ventricular systolic pressure 27. Antiplatelet therapy continued. Blood sugar was managed with a sliding scale of insulin. Renal parameters and electrolytes were closely monitored. Electrolytes corrected as needed. Nephrotoxic's were avoided. Creatinine as high as 1.4 down to 0.9 prior to discharge. Seizure precaution maintained. No evidence of seizure activity while in the hospital. Psychiatrist seen and evaluated patient. Per psychiatrist patient had acute metabolic encephalopathy and bipolar disorder. Psychiatric medication regimen was optimized as per psychiatrist . Reality orientation and supportive therapy provided. Patient clinically stabilized and was ready for transfer home with home health services to follow. FINAL DIAGNOSES: Acute metabolic encephalopathy / Hepatic encephalopathy Liver cirrhosis with portal hypertension Pulmonary fibrosis Diabetes mellitus Dehydration Acute kidney injury Sepsis /not present on admission Right-sided colitis Hypotension, hepatic in nature Aspiration risk Diverticulosis BPH Seizure disorder History of hypertension Bipolar disorder DISCHARGE MEDICATIONS: See Medication Reconciliation list. DISCHARGE INSTRUCT Patient was discharged home with home health services. Follow up with primary care provider in one week I have been assigned to dictate discharge summary for this account. I was not involved in the patient's management. Lupe Mccauley NP Jun 27, 2019 13:27
--- NOTE | 2019-06-27 16:18 | Cardiology Report ---
APPROVED REPORT EXAM: Two-dimensional and M-mode echocardiogram with Doppler and color Doppler. INDICATION Left ventricular function M-Mode DIMENSIONS IVSd0.9 (0.7-1.1cm)Left Atrium (MM)4.0 (1.6-4.0cm) LVDd4.7 (3.5-5.6cm)Aortic Root2.9 (2.0-3.7cm) PWd0.8 (0.7-1.1cm)Aortic Cusp Exc.2.0 (1.5-2.0cm) LVDs2.8 (2.5-4.0cm) PWs1.6 cm Normal left ventricular chamber size, systolic function and wall motion. Left ventricular ejection fraction estimated to be 60-65 %. No evidence of left ventricular hypertrophy. No evidence of pericardial effusion. All other cardiac chamber sizes are within normal limits. Focal aortic valve sclerosis with adequate cusp excursion. Thickened mitral valve leaflets with normal excursion. Mitral annulus and aortic root calcification. Pulmonic valve not well visualized. Normal tricuspid valve structure. IVC is normal in size with physiological collapse. A color flow and spectral Doppler study was performed and revealed: No aortic regurgitation. Mild mitral regurgitation. Mitral diastolic velocities moderate reduced left ventricular relaxation Trace tricuspid regurgitation. Tricuspid systolic velocities suggests peak right ventricular systolic pressure of 27 mmHg. No pulmonic regurgitation present.
== END 2019-06-26 20:50 | disposition home health service (06) | DRG 441 ==
LOC: EDUNIT# 18:02 → EDBD 18:02 → EMR 18:15 → 2E 21:05 → EDBEDREQ 22:08 → 4E 06-20 13:56 → 2E 06-22 13:38 → 2W 06-23 13:36 → 2E 06-24 17:39 → 4E 06-25 15:47
DX: K72.90 Hepatic failure, unspecified without coma (principal); G93.41 Metabolic encephalopathy; A41.9 Sepsis, unspecified organism; N17.9 Acute kidney failure, unspecified; K76.6 Portal hypertension; M48.54XA Collapsed vertebra, not elsewhere classified, thoracic region, initial encounter for fracture; R18.8 Other ascites; K74.60 Unspecified cirrhosis of liver; E86.0 Dehydration; F31.9 Bipolar disorder, unspecified; E11.9 Type 2 diabetes mellitus without complications; K52.89 Other specified noninfective gastroenteritis and colitis; I95.89 Other hypotension; K57.90 Diverticulosis of intestine, part unspecified, without perforation or abscess without bleeding; I10 Essential (primary) hypertension; J84.10 Pulmonary fibrosis, unspecified; N40.0 Benign prostatic hyperplasia without lower urinary tract symptoms; K27.9 Peptic ulcer, site unspecified, unspecified as acute or chronic, without hemorrhage or perforation; R56.9 Unspecified convulsions
CPT/HCPCS: 36415; 36600; 70450; 71045; 74177; 76700; 80048; 80053; 80307; 81003; 82105; 82140; 82248; 82270; 82550; 82553; 82607; 82803; 82962; 83540; 83550; 83605; 84484; 85007; 85025; 85610; 86703; 86705; 86709; 86803; 87040; 87045; 87324; 87340; 93005; 93306; 96360; 96361; 99285; G0480; J1815; J7030

== ENCOUNTER 2019-08-21 15:00 | Inpatient (IN) | payer MEDICARE, OTHER ==
[~2019-08-21] VITALS: Ht 170.2 cm; Wt 73.7 kg
[2019-08-21 15:10] VITALS: BP 104/56
--- NOTE | 2019-08-21 15:12 | Emergency Room Report ---
History of Present Illness General Chief Complaint: Dyspnea/Respdistress Source: Patient, Medical Record Present Illness HPI 68-year-old male presents with bilateral leg pain, swelling x5 days aggravated with movement alleviated with rest severity is moderate, intermittent, patient also endorses baseline shortness of breath, patient states that he is got pulmonary fibrosis stage IV, follows up at the [facility], he denies any chest pain no nausea no vomiting no abdominal pain, he does endorse some weight gain, patient presents for evaluation. Allergies: Coded Allergies: No Known Allergies (Unverified , 11/01/17) Patient History Past Medical History: see triage record Reviewed Nursing Documentation: PMH: Agreed; PSxH: Agreed Nursing Documentation-PMH Past Medical History: No History, Except For Hx Cardiac Problems: Yes Hx Hypertension: Yes Hx Diabetes: Yes Hx Cancer: No Hx Gastrointestinal Problems: Yes Hx Neurological Problems: Yes Hx Seizures: Yes Hx Head Trauma: No Hx Traumatic Brain Injury: Yes Review of Systems All Other Systems: negative except mentioned in HPI Physical Exam Vital Signs Date Time Temp Pulse Resp B/P (MAP) Pulse Ox O2 Delivery O2 Flow Rate FiO2 08/21/19 15:02 97.0 97 20 130/68 (88) 99 Non-Rebreather 15.0 Sp02 EP Interpretation: reviewed, abnormal - Reduced General Appearance: well appearing, no apparent distress, alert Head: normocephalic, atraumatic Eyes: bilateral eye PERRL, bilateral eye EOMI ENT: uvula midline, moist mucus membranes Neck: supple, thyroid normal, supple/symm/no masses Respiratory: accessory muscle use, crackles, rales Cardiovascular #1: normal peripheral pulses, no edema, no gallop, no murmur, tachycardia, edema - 2+ pedal edema bilaterally Gastrointestinal: non tender, soft, no guarding, no rebound Musculoskeletal: normal inspection Neurologic: alert, oriented x3 Psychiatric: mood/affect normal Skin: no rash, warm/dry Medical Decision Making Diagnostic Impression: Primary Impression: Dyspnea Qualified Codes: R06.00 - Dyspnea, unspecified Additional Impressions: Interstitial lung disease CHF (congestive heart failure) Qualified Codes: I50.9 - Heart failure, unspecified ER Course 68-year-old male presents with edema of the lower extremities, shortness of breath, differential diagnosis includes ACS, CHF exacerbation, worsening of interstitial lung disease, Oxygen started, Lasix started, x-ray shows interstitial disease and enlarged heart, Patient with elevated lactic acid, improved status post Lasix, and removal of some fluid Patient will be admitted to telemetry under Dr. Rodriguez Laboratory Tests Test 08/21/19 15:00 08/21/19 15:35 08/21/19 16:20 White Blood Count 6.1 K/UL (4.8-10.8) Red Blood Count 3.09 M/UL (4.70-6.10) L Hemoglobin 9.9 G/DL (14.2-18.0) L Hematocrit 29.7 % (42.0-52.0) L Mean Corpuscular Volume 96 FL (80-99) Mean Corpuscular Hemoglobin 32.1 PG (27.0-31.0) H Mean Corpuscular Hemoglobin Concent 33.4 G/DL (32.0-36.0) Red Cell Distribution Width 13.1 % (11.6-14.8) Platelet Count 140 K/UL (150-450) L Mean Platelet Volume 5.2 FL (6.5-10.1) L Neutrophils (%) (Auto) 63.3 % (45.0-75.0) Lymphocytes (%) (Auto) 18.9 % (20.0-45.0) L Monocytes (%) (Auto) 8.4 % (1.0-10.0) Eosinophils (%) (Auto) 7.2 % (0.0-3.0) H Basophils (%) (Auto) 2.2 % (0.0-2.0) H Prothrombin Time 14.5 SEC (9.30-11.50) H Prothrombin Time INR 1.4 (0.9-1.1) H PTT 33 SEC (23-33) Sodium Level 138 MMOL/L (136-145) Potassium Level 3.4 MMOL/L (3.5-5.1) L Chloride Level 105 MMOL/L (98-107) Carbon Dioxide Level 21 MMOL/L (21-32) Anion Gap 12 mmol/L (5-15) Blood Urea Nitrogen 6 mg/dL (7-18) L Creatinine 1.1 MG/DL (0.55-1.30) Estimate Glomerular Filtration Rate > 60 mL/min (>60) Glucose Level 143 MG/DL (74-106) H Lactic Acid Level 3.30 mmol/L (0.4-2.0) H 2.50 mmol/L (0.66-2.22) H Calcium Level 8.3 MG/DL (8.5-10.1) L Phosphorus Level 2.0 MG/DL (2.5-4.9) L Magnesium Level 1.4 MG/DL (1.8-2.4) L Total Bilirubin 1.0 MG/DL (0.2-1.0) Aspartate Amino Transferase (AST) 50 U/L (15-37) H Alanine Aminotransferase (ALT) 26 U/L (12-78) Alkaline Phosphatase 137 U/L (46-116) H Total Creatine Kinase 94 U/L (26-308) Creatine Kinase MB 2.0 NG/ML (0.0-3.6) Creatine Kinase MB Relative Index 2.1 Troponin I 0.004 ng/mL (0.000-0.056) Pro-B-Type Natriuretic Peptide 60 pg/mL (0-125) Total Protein 7.2 G/DL (6.4-8.2) Albumin 2.3 G/DL (3.4-5.0) L Globulin 4.9 g/dL Albumin/Globulin Ratio 0.5 (1.0-2.7) L Lipase 224 U/L (73-393) Arterial Blood pH 7.448 (7.350-7.450) Arterial Blood Partial Pressure CO2 29.0 mmHg (35.0-45.0) L Arterial Blood Partial Pressure O2 60.0 mmHg (75.0-100.0) L Arterial Blood HCO3 19.6 mmol/L (22.0-26.0) L Arterial Blood Oxygen Saturation 90.1 % (95-100) L Arterial Blood Base Excess -3.5 (-2-2) L Logan Test Positive EKG Diagnostic Results EKG Time: 14:57 EP Interpretation: Sinus tachycardia, rate 103, QTc 479, no acute ST elevations , normal axis Rhythm Strip Diag. Results Rhythm Strip Time: 15:12 EP Interpretation: yes Rate: 100 Rhythm: NSR, no PVC's, no ectopy Last Vital Signs Date Time Temp Pulse Resp B/P (MAP) Pulse Ox O2 Delivery O2 Flow Rate FiO2 08/21/19 15:02 97.0 97 20 130/68 (88) 99 Non-Rebreather 15.0 Disposition: ADMITTED INPATIENT Condition: Stable Marcell Ta MD Aug 21, 2019 15:12
--- NOTE | 2019-08-21 15:12 | NUR ---
ED Nurse Note: PT BROUGHT IN BY AMBULANCE FROM HOME DUE TO BILATERAL LEG PAIN WITH SWELLING X 5 DAYS. PT ALSO C/O CHEST PAIN X 6 MONTHS D/T PULMONARY FIBROSIS. OXYGEN SATURATION WAS DROPPING DOWN TO 84 % IN ROOM AIR AND CAME IN WITH NON REBREATHER MASK AT 15LPM. AAO X4, FOLLOWS COMMANDS WITH SOB AT REST UNABLE TO LAY DOWN FLAT.
--- NOTE | 2019-08-21 15:27 | NUR ---
ED Nurse Note: COLLECTE DBLOOD SPECIMEN THEN SENT.
--- NOTE | 2019-08-21 15:30 | NUR ---
ED Nurse Note: APPLIED NASAL CANNULA AT 6LPM. O2 SAT AT 93-94 %. ERMD NOTIFIED.
[2019-08-21 15:44] LABS: ANION GAP 12 mmol/L (5-15); BLOOD UREA NITROGEN 6 mg/dL (7-18); CALCIUM 8.3 MG/DL (8.5-10.1); CARBON DIOXIDE 21 MMOL/L (21-32); CHLORIDE 105 MMOL/L (98-107); CREATININE 1.1 MG/DL (0.55-1.30); POTASSIUM 3.4 MMOL/L (3.5-5.1); SODIUM 138 MMOL/L (136-145)
[2019-08-21 15:49] LABS: INR 1.4 (0.9-1.1)
--- NOTE | 2019-08-21 15:52 | Diagnostic Imaging Report ---
Indication: Dyspnea Comparison: None A single view chest radiograph was obtained. Findings: Interstitial opacities are fairly extensive bilaterally but unchanged. Heart size is borderline enlarged. Lung volumes are low bilaterally. Bones are osteopenic. IMPRESSION: Interstitial lung disease. No change.
[2019-08-21 15:53] LABS: BASOPHILS % (AUTO) 2.2 % (0.0-2.0); EOSINOPHILS % (AUTO) 7.2 % (0.0-3.0); HEMATOCRIT 29.7 % (42.0-52.0); HEMOGLOBIN 9.9 G/DL (14.2-18.0); LYMPHOCYTES % (AUTO) 18.9 % (20.0-45.0); MEAN CORPUSCULAR VOLUME 96 FL (80-99); MONOCYTES % (AUTO) 8.4 % (1.0-10.0); NEUTROPHILS % (AUTO) 63.3 % (45.0-75.0); PLATELET COUNT 140 K/UL (150-450); RED BLOOD COUNT 3.09 M/UL (4.70-6.10); RED CELL DISTRIBUTION WIDTH 13.1 % (11.6-14.8); WHITE BLOOD COUNT 6.1 K/UL (4.8-10.8)
[2019-08-21 15:56] LABS: ALANINE AMINOTRANSFERASE 26 U/L (12-78); ALBUMIN 2.3 G/DL (3.4-5.0); ALBUMIN/GLOBULIN RATIO 0.5 (1.0-2.7); ALKALINE PHOSPHATASE 137 U/L (46-116); ASPARTATE AMINO TRANSFERASE 50 U/L (15-37); CREATINE KINASE 94 U/L (26-308)
--- NOTE | 2019-08-21 16:21 | NUR ---
ED Nurse Note: COLLECTED REPEAT LACTIC AICD SPECIMEN THEN SENT.
[2019-08-21 16:29] VITALS: BP 110/62
--- NOTE | 2019-08-21 16:36 | NUR ---
ED Nurse Note: REPORT GIVEN TO JAVIER WEAVER OF TELEMETRY UNIT.
[2019-08-21] MEDS ORDERED: sleeping pill ORAL (16:42)
--- NOTE | 2019-08-21 17:24 | NUR ---
ED Nurse Note: PT TRANSFERRED TO TELEMETRY UNIT VIA GURNEY AND BELONGINGS SENT WITH PT.
[2019-08-21 17:58] VITALS: BP 117/69
[2019-08-21 18:00] LABS: APPEARANCE,URINE CLEAR; BILIRUBIN, URINE NEGATIVE (NEGATIVE); COLOR,URINE PALE YELLOW; GLUCOSE, URINE (UA) NEGATIVE (NEGATIVE); KETONES,URINE NEGATIVE (NEGATIVE); LEUKOCYTE ESTERASE ,URINE NEGATIVE (NEGATIVE); NITRITE,URINE NEGATIVE (NEGATIVE); PH,URINE 6.5 (4.5-8.0); PROTEIN,URINE NEGATIVE (NEGATIVE); UROBILINOGEN,URINE NORMAL MG/DL (0.0-1.0)
--- NOTE | 2019-08-21 18:00 | NUR ---
NURSE NOTES: RECEIVED PT FROM er AWAKE, ALERT, ORIENTED, NO CO PAIN, SKIN WARM AND DRY TO TOUCH, INTACT, ABDOMEN SOFT, BLE EDEMA, NO SOB AT THIS TIME, BED IN LOW POSITION, CALL LIGHT WITHIN REACH.
--- NOTE | 2019-08-21 19:30 | NUR ---
NURSE NOTES: Received report from MEG Wyatt. Patient is in bed, awake and responsive. Breathing regular with presence of SOB noted when the patient tried to stand. Breathing returns to regular once patient goes back to bed. Patient is on a NC @2l. Patient was recently admitted, all the orders noted and carried out. Patient denies any pain or discomfort at this time. Bed is in lowest position, breaks engaged and call light is within reach at all times. Patient is able to make needs known, all other needs attended to, will continue to monitor.
--- NOTE | 2019-08-21 19:45 | NUR ---
NURSE NOTES: Upon assistance to the side of the bed, the patient becomes short of breath. Offered to apply the non-rebreather mask to assist with oxygenation, but patient is profusely refusing and stating that "This is normal for me, give me 5 minutes and I'll be fine." Contacted RT to assess the patient. Patient is put on a Venturi mask at 50%. RT and and this RN both re-enforced teaching to leave the mask in place to help with oxygenation. Patient stated "If it bothers me, I'm going to take it off and not tell anyone." Educated patient once more, will keep reinforcing teaching. Patient remains stable, will continue to monitor.
--- NOTE | 2019-08-21 19:48 | NUR ---
HAND-OFF: Report given to JENNIE WEAVER.
[2019-08-21 20:00] VITALS: BP 120/62
--- NOTE | 2019-08-21 21:00 | NUR ---
NURSE NOTES: Contacted Dr. Rodriguez in regards to the patient's potassium levels. Received orders for PO potassium. Orders noted and carried out.
--- NOTE | 2019-08-21 21:30 | NUR ---
NURSE NOTES: Patient continuously refused to have the Venturi mask because patient stated "It bothers me, doesn't fit my face well." Contacted RT to replace the venturi mask and put the patient back on the NC per the patient's request. Patient remains on the NC at 5L with saturation between 96-97%. Patient does not exhibit s/s of SOB at rest, only upon exertion. Patient is currently stable with all needs attended to. Will continue to monitor.
[2019-08-21] MEDS: Heparin 5000 units/ml inj SUBQ SCH (22:34)
[2019-08-21] MEDS ORDERED: Zolpidem 5mg tab ORAL PRN (23:45)
[2019-08-22] VITALS: BP 109/67
--- NOTE | 2019-08-22 03:56 | NUR ---
NURSE NOTES: Upon rounds, noted that patient is still removing his NC. Re-enforced teaching in regards to keeping the NC on. Patient agreed to keep it on for the moment. Will continue to assess and re-enforce teaching. Patient remains stable.
[2019-08-22 04:00] VITALS: BP 113/57
[2019-08-22] MEDS: Heparin 5000 units/ml inj SUBQ SCH ×3 (05:52→22:00)
[2019-08-22 07:18] LABS: BASOPHILS % (AUTO) 1.8 % (0.0-2.0); EOSINOPHILS % (AUTO) 6.7 % (0.0-3.0); HEMATOCRIT 26.7 % (42.0-52.0); HEMOGLOBIN 9.2 G/DL (14.2-18.0); LYMPHOCYTES % (AUTO) 24.1 % (20.0-45.0); MEAN CORPUSCULAR VOLUME 96 FL (80-99); MONOCYTES % (AUTO) 9.7 % (1.0-10.0); NEUTROPHILS % (AUTO) 57.7 % (45.0-75.0); PLATELET COUNT 130 K/UL (150-450); RED BLOOD COUNT 2.79 M/UL (4.70-6.10); RED CELL DISTRIBUTION WIDTH 13.1 % (11.6-14.8)
[2019-08-22 07:30] LABS: ANION GAP 6 mmol/L (5-15); BLOOD UREA NITROGEN 5 mg/dL (7-18); CALCIUM 7.9 MG/DL (8.5-10.1); CARBON DIOXIDE 27 MMOL/L (21-32); CHLORIDE 106 MMOL/L (98-107); CREATININE 1.2 MG/DL (0.55-1.30); PHOSPHORUS 2.6 MG/DL (2.5-4.9); POTASSIUM 3.4 MMOL/L (3.5-5.1); SODIUM 139 MMOL/L (136-145)
--- NOTE | 2019-08-22 07:31 | NUR ---
HAND-OFF: Report given to MEG Moreno. Patient is erum.
--- NOTE | 2019-08-22 07:33 | NUR ---
NURSE NOTES: Received report from Elle/RN, Patient is up on bed eating breakfast. On 5L nasal canula, with no acute distress/SOB noted. Breathing even and unlabored. Able to make need known, Denies pain at this time. IV on Right AC patent, no bleeding or infiltration noted. Bed in low position and locked, Call light within reach. Encouraged to use call light when needed. Bed alarm engaged, side-rails up x2. Will continue plan of care.
[2019-08-22 08:00] VITALS: BP 107/76
[2019-08-22] MEDS: ARIPiprazole 10mg tab ORAL SCH (08:54)
[2019-08-22 12:00] VITALS: BP 103/62
--- NOTE | 2019-08-22 13:27 | History & Physical ---
History and Physical History & Physicial Ulises Rodriguez MD Aug 22, 2019 13:27
--- NOTE | 2019-08-22 14:11 | Consultation ---
Consult Note Assessment/Plan DICT # [id number] Alejandro Bernal MD Aug 22, 2019 14:11
[2019-08-22 16:00] VITALS: BP 104/59
--- NOTE | 2019-08-22 16:11 | NUR ---
CASE MANAGEMENT:REVIEW 68 YR OLD MALE BIBA CC: SOB SI: PULMONARY EDEMA. CHF 96.9 97 20 130/68 99% ON NON REBREATHER H/H-9.9/29.7 PLT-140 MAG-1.4 PCO2-29.0 PO2-60 HCO3-19.6 IS:IV LASIX X1 BLOOD CX CHEST XRAY : TO TELEMETRY IS: IV LASIX Q12
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
--- NOTE | 2019-08-22 16:45 | Consultation ---
DATE OF CONSULTATION: 08/22/2019 PULMONARY CONSULTATION CONSULTING PHYSICIAN: Alejandro Bernal M.D. REFERRING PHYSICIAN: Ulises Rodriguez M.D. REASON FOR CONSULTATION: Pulmonary fibrosis. HISTORY OF PRESENT ILLNESS: The patient is a 68-year-old male, a [facility], with a history of pulmonary fibrosis, possible IPF, bipolar disorder, diabetes, seizure disorder, and opiate disorder, who presents with bilateral lower extremity edema. The patient was seen and evaluated by the ER physician and admitted for possible decompensated heart failure. He states that he has baseline shortness of breath. Denies any increase. He had an echo done with an LVEF of 65% to 75% with evidence of valvular heart disease and a PA pressure of 17. His laboratory workup was unremarkable except for a mild lactic acidosis. His BNP was normal. He states cough, wheezing, and shortness of breath is at baseline. He denies any fevers, chills, chest pain, or increase in baseline shortness of breath. PAST MEDICAL HISTORY: 1. Pulmonary fibrosis, likely IPF. 2. Bipolar disorder. 3. Diabetes. ALLERGIES: No known drug allergies. MEDICATIONS: Prior to admission medications reviewed. Current medications reviewed. SOCIAL HISTORY: Former smoker, none current. Denies drug or alcohol use. FAMILY HISTORY: Noncontributory. REVIEW OF SYSTEMS: Negative other than the history of present illness. PHYSICAL EXAMINATION: VITAL SIGNS: Temperature 97.5, pulse 99, blood pressure __/59, and respiratory rate 20. Saturating 92% on 5 liters. GENERAL: He is a well-developed and well-nourished elderly male, in no acute distress. Awake, alert, and oriented x3. HEENT: Normocephalic and atraumatic. Oropharynx is clear with moist mucous membranes. NECK: Supple without lymphadenopathy or jugular vein distention. CHEST: Bibasilar rales. HEART: Regular rate and rhythm. ABDOMEN: Soft, nontender, and nondistended. EXTREMITIES: No cyanosis, clubbing or edema. ANCILLARY DATA: Labs reviewed. Imaging reviewed. Echo reviewed. ASSESSMENT: The patient is a 68-year-old male with history of diabetes, bipolar disorder, opiate abuse, and pulmonary fibrosis, likely idiopathic pulmonary fibrosis, presenting with bilateral lower extremity edema with suggestion of vascular edema without evidence of decompensated heart failure. I will get a duplex of the lower extremities to make sure that there is no DVT. I would be cautious about diuresing. The patient does not appear to be infected, though he does have a mild lactic acidosis. He is fairly stable from a respiratory standpoint. PROBLEM LIST: 1. Pulmonary fibrosis, likely IPF, on home O2. 2. Bilateral lower extremity edema. 3. Congestive heart failure with mild diastolic dysfunction without any evidence of decompensation. 4. Bipolar disorder. 5. Diabetes. 6. Lactic acidosis. 7. Anemia. TREATMENT PLAN: 1. Optimize pulmonary hygiene/mobilize as tolerated. 2. Titrate down FiO2 to keep saturations greater than 92%. 3. Monitor volumes and renal function, we will be very cautious about diuresis. 4. Observe off antibiotics unless any sign of an infectious process. 5. Heparin subcutaneous for DVT prophylaxis. 6. Check a duplex ultrasound of the lower extremities. 7. The patient is a Full Code. Dr. Rodriguez, thank you for allowing me to assist in the care of your patient. If I may be of any assistance in the future, please do not hesitate to ask. Alejandro Bernal M.D. DR: SANYA JOB#: [id number] CC:
--- NOTE | 2019-08-22 19:19 | NUR ---
NURSE NOTES: RECEIVED PATIENT RESTING IN BED, NO COMPLAINTS OF PAIN AT THIS TIME. FALL PRECAUTIONS IN PLACE: CALL LIGHT, BEDSIDE TABLE AND URINAL AT BEDSIDE, BED IN LOW POSITION AND BED ALARM ON. PLAN OF CARE REVIEWED.
--- NOTE | 2019-08-22 19:20 | NUR ---
HAND-OFF: Report given to Chelsey/RN. Patient is in stable condition. endorsed plan of care.
[2019-08-22 20:00] VITALS: BP 103/57
[2019-08-23] VITALS: BP 102/57
[2019-08-23 04:00] VITALS: BP 92/53
[2019-08-23] MEDS: Heparin 5000 units/ml inj SUBQ SCH (05:23)
[2019-08-23 06:52] LABS: BASOPHILS % (AUTO) 1.5 % (0.0-2.0); EOSINOPHILS % (AUTO) 5.4 % (0.0-3.0); HEMATOCRIT 27.5 % (42.0-52.0); HEMOGLOBIN 9.3 G/DL (14.2-18.0); LYMPHOCYTES % (AUTO) 26.1 % (20.0-45.0); MEAN CORPUSCULAR VOLUME 96 FL (80-99); MONOCYTES % (AUTO) 12.6 % (1.0-10.0); NEUTROPHILS % (AUTO) 54.4 % (45.0-75.0); PLATELET COUNT 119 K/UL (150-450); RED BLOOD COUNT 2.86 M/UL (4.70-6.10); RED CELL DISTRIBUTION WIDTH 12.6 % (11.6-14.8); WHITE BLOOD COUNT 7.5 K/UL (4.8-10.8)
--- NOTE | 2019-08-23 07:31 | NUR ---
HAND-OFF: Report given to Karan GOODE RN. PATIENT HAVING BREAKFAST, NO SIGNS OF DISTRESS NOTED.
[2019-08-23 07:37] LABS: ALANINE AMINOTRANSFERASE 24 U/L (12-78); ALBUMIN/GLOBULIN RATIO 0.4 (1.0-2.7); ALKALINE PHOSPHATASE 109 U/L (46-116); ANION GAP 7 mmol/L (5-15); ASPARTATE AMINO TRANSFERASE 46 U/L (15-37); BILIRUBIN,TOTAL 1.2 MG/DL (0.2-1.0); BLOOD UREA NITROGEN 10 mg/dL (7-18); CALCIUM 8.1 MG/DL (8.5-10.1); CARBON DIOXIDE 26 MMOL/L (21-32); CHLORIDE 101 MMOL/L (98-107); CREATININE 1.3 MG/DL (0.55-1.30); PHOSPHORUS 2.8 MG/DL (2.5-4.9); SODIUM 134 MMOL/L (136-145)
[2019-08-23 07:41] LABS: BILIRUBIN,DIRECT 0.4 MG/DL (0.0-0.3)
[2019-08-23 08:00] VITALS: BP 119/69
--- NOTE | 2019-08-23 08:01 | NUR ---
NURSE NOTES: PT AWAKE ALERT ORIENTED NO C/O PAIN. PT REQUESTED FOR DC HOME SINCE 'ITS ' PAGED DR NASSAR, PATIENT WANTS TO SPEND KJ AT HOME, AWAITING CALL BACK. PT SR W [id number] 90-100 Addendum: 08/23/19 at 0803 by AVIS CASTILLO RN WILL ALSO RELAY TO MD SHARIF Finch LEVEL 3.0
[2019-08-23] MEDS: ARIPiprazole 10mg tab ORAL SCH (08:10)
[2019-08-23 12:00] VITALS: BP 103/56
[2019-08-23] MEDS ORDERED: TRIAMTERENE-HC1 EAC7 ORAL (12:42)
--- NOTE | 2019-08-23 12:43 | Discharge Summary ---
Discharge Summary Hospital Course Date of Admission Aug 21, 2019 at 15:38 Date of Discharge Admitting Diagnosis pulmonary edema HPI Phyllis Almeida is a 68 year old male who was admitted on Aug 21, 2019 at 15:38 for Pulmonary Edema Hospital Course Last 24 Hour Vital Signs Date Time Temp Pulse Resp B/P (MAP) Pulse Ox O2 Delivery O2 Flow Rate FiO2 08/23/19 09:00 Nasal Cannula 5.0 08/23/19 08:07 96 Nasal Cannula 4.0 36 08/23/19 08:00 98.4 100 22 119/69 (86) 96 08/23/19 08:00 4.0 50 08/23/19 07:23 102 08/23/19 04:00 98.4 106 22 92/53 (66) 96 08/23/19 04:00 5.0 50 08/23/19 04:00 106 08/23/19 00:00 100 08/23/19 00:00 99.1 98 22 102/57 (72) 96 08/22/19 20:36 96 Nasal Cannula 4.0 36 08/22/19 20:00 98.1 90 22 103/57 (72) 97 08/22/19 20:00 5.0 50 08/22/19 20:00 86 08/22/19 19:57 Nasal Cannula 5.0 08/22/19 16:00 88 08/22/19 16:00 5.0 50 08/22/19 16:00 98.1 87 19 104/59 (74) 94 General: No acute distress, awake and alert HEENT: NCAT, sclera anicteric, PERRL, EOMI. Neck: Supple, no significant jugular venous distention, Lungs: Good inspiratory effort, no accessory muscle use, clear to auscultation bilaterally, no Wheeze or Rales. Heart: Regular rate and rhythm, normal S1/S2, no murmurs/gallops Abdomen: soft, nontender, nondistended. Normoactive bowel sounds. / Rectal: Refused and deferred. Extremities: No Cyanosis , clubbing< +2 Leg edema. Neuro: A&O x 3, Able to move all extremities Skin: warm, no rashes or lesions Psych: Normal mood and affect Discharge Discharge Disposition Patient was discharged to Ulises Rodriguez MD Aug 23, 2019 12:43
--- NOTE | 2019-08-23 15:10 | NUR ---
NURSE NOTES: pt left in stable condition, with all belongings , o2 dependent on 5lnc, dr Rodriguez aware. iv removed. arm band removed
--- NOTE | 2019-08-23 15:45 | Discharge Summary ---
DATE OF ADMISSION: 08/21/2019 DATE OF DISCHARGE: 08/23/2019 HOSPITAL COURSE: This is a 68-year-old very delightful gentleman with past medical history significant for epilepsy, hypertension who presented to the hospital complaining about bilateral lower extremity edema. Shortly after initial evaluation, the patient was admitted to the hospital with bilateral leg edema, most likely secondary to fluid overload as well as pulmonary fibrosis. Throughout the hospital course, the patient was consulted with Dr. Alejandro Bernla from [facility]. The patient's status gradually improved on IV Lasix and wants to go home. Subsequently, the patient was discharged home today to be followed as outpatient. FINAL DIAGNOSES: 1. Pulmonary fibrosis. 2. Bipolar disorder. 3. Prediabetic. 4. Epilepsy. 5. Bilateral lower extremity edema, most likely secondary to fluid overload. MEDICATIONS AT DISCHARGE: Continue discharge medication list. ACTIVITY: As tolerated. DIET: Low-salt diet. The patient was advised to follow up with his primary physician at [facility] within 1 to 2 weeks. Ulises Rodriguez M.D. DR: DIANE JOB#: [id number] CC:
== END 2019-08-23 15:09 | disposition home or self-care (01) | DRG 197 ==
LOC: EDBD 15:00 → EMR 15:16 → 2E 15:38 → EDBEDREQ 16:08
DX: J84.112 Idiopathic pulmonary fibrosis (principal); I50.32 Chronic diastolic (congestive) heart failure; I11.0 Hypertensive heart disease with heart failure; R06.00 Dyspnea, unspecified; G40.909 Epilepsy, unspecified, not intractable, without status epilepticus; R73.03 Prediabetes; E83.42 Hypomagnesemia; E87.6 Hypokalemia; D63.8 Anemia in other chronic diseases classified elsewhere; D50.9 Iron deficiency anemia, unspecified; F31.9 Bipolar disorder, unspecified; E87.70 Fluid overload, unspecified
CPT/HCPCS: 36415; 36600; 71045; 80048; 80053; 81003; 82248; 82550; 82553; 82803; 83605; 83690; 83735; 83880; 84100; 84484; 85025; 85610; 85730; 87040; 87081; 93005; 93306; 93970; 96374; 99285; J8499

== ENCOUNTER 2019-10-01 18:33 | Inpatient (IN) | payer MEDICARE, OTHER ==
[~2019-10-01] VITALS: Ht 167.6 cm; Wt 81.6 kg
[~2019-10-01 18:33] MED LIST changes: +TRIAMTERENE-HC1 EAC7 ORAL; +sleeping pill ORAL
--- NOTE | 2019-10-01 18:35 | NUR ---
ED Nurse Note: Patient BIBA from home for respiritory distress. Patient low 70's O2 sat at home, 97% after EMS placed on non-rebreather. Patient's at bedside, she states he is a DNR and on hospice care. Dr. Burris at bedside.
[2019-10-01 18:40] VITALS: BP 77/52
--- NOTE | 2019-10-01 18:50 | NUR ---
ED Nurse Note: Patient hypostensive, Dr. Burris aware. Patiensating 95% on Non-rebreather.
--- NOTE | 2019-10-01 18:50 | NUR ---
ED Nurse Note: Blood sent to lab. IV fluids started
--- NOTE | 2019-10-01 19:05 | NUR ---
HANDOFF: Handoff report given to Renetta WEAVER.
[2019-10-01 19:18] LABS: HEMATOCRIT 28.7 % (42.0-52.0); HEMOGLOBIN 8.6 G/DL (14.2-18.0); MEAN CORPUSCULAR VOLUME 99 FL (80-99); PLATELET COUNT 131 K/UL (150-450); RED BLOOD COUNT 2.89 M/UL (4.70-6.10); RED CELL DISTRIBUTION WIDTH 16.5 % (11.6-14.8); WHITE BLOOD COUNT 25.7 K/UL (4.8-10.8)
--- NOTE | 2019-10-01 19:18 | Emergency Room Report ---
History of Present Illness General Chief Complaint: Altered Level of Consciousness Source: Family Member Present Illness HPI Patient presents by paramedics for reports of general weakness Family reports the patient had a seizure activity yesterday They have been in contact with hospice nurse And family reports that they did not feel significant information or input was provided Patient remained more lethargic than usual And questionably dehydrated and therefore paramedics were summoned to present to the ER There was no reports of vomiting or diarrhea Patient is reported to be in hospice care Patient himself is nonverbal and not able to provide any history Allergies: Coded Allergies: No Known Allergies (Unverified , 11/01/17) Patient History Limited by: medical condition Past Medical History: see triage record Reviewed Nursing Documentation: PMH: Agreed; PSxH: Agreed Nursing Documentation-PMH Hx Cardiac Problems: Yes Hx Hypertension: Yes Hx COPD: No - pulmonary fibrosis Hx Diabetes: Yes Hx Cancer: No Hx Gastrointestinal Problems: Yes Hx Neurological Problems: Yes Hx Seizures: Yes Hx Head Trauma: No Hx Traumatic Brain Injury: Yes Review of Systems All Other Systems: limited - Other than the ones mentioned in the history of present illness all others are reviewed however they do stay limited due to the patient's mental status Physical Exam Vital Signs Date Time Temp Pulse Resp B/P (MAP) Pulse Ox O2 Delivery O2 Flow Rate FiO2 10/01/19 18:29 100.9 114 18 110/62 (78) 95 Simple Mask 8.0 Sp02 EP Interpretation: reviewed, normal General Appearance: moderate distress Head: normocephalic, atraumatic Eyes: bilateral eye other - Pupils pinpoint ENT: dry mucus membranes Neck: supple Respiratory: crackles - Both lower lobes, other - Decreased expiratory rate Cardiovascular #1: regular rate, rhythm Gastrointestinal: non tender, soft Musculoskeletal: other - Patient very sluggish to physical stimuli does not follow commands Neurologic: other - Decreased GCS, patient is receiving morphine and Ativan via hospice care Skin: pallor Lymphatic: no adenopathy Medical Decision Making Diagnostic Impression: Primary Impression: Sepsis Additional Impressions: Aspiration into airway Hospice care ER Course Patient's presentation is concerning for multiple differentials including but not limited to cardiac, cardiopulmonary, infectious metabolic disease, Patient's white blood cell count is elevated Lactic acid significantly elevated patient's x-ray is abnormal Patient receives morphine Ativan and other pain medications is under hospice care presents hypotensive Further hydration is provided Patient's family understands that the patient Does not want any airway intubation or CPR However we will have further care with medications and IV care Labs Test 10/01/19 18:50 White Blood Count 25.7 K/UL (4.8-10.8) Red Blood Count 2.89 M/UL (4.70-6.10) Hemoglobin 8.6 G/DL (14.2-18.0) Hematocrit 28.7 % (42.0-52.0) Mean Corpuscular Volume 99 FL (80-99) Mean Corpuscular Hemoglobin 29.9 PG (27.0-31.0) Mean Corpuscular Hemoglobin Concent 30.1 G/DL (32.0-36.0) Red Cell Distribution Width 16.5 % (11.6-14.8) Platelet Count 131 K/UL (150-450) Mean Platelet Volume 6.7 FL (6.5-10.1) Neutrophils (%) (Auto) % (45.0-75.0) Lymphocytes (%) (Auto) % (20.0-45.0) Monocytes (%) (Auto) % (1.0-10.0) Eosinophils (%) (Auto) % (0.0-3.0) Basophils (%) (Auto) % (0.0-2.0) Sodium Level 141 MMOL/L (136-145) Potassium Level 4.1 MMOL/L (3.5-5.1) Chloride Level 106 MMOL/L (98-107) Carbon Dioxide Level 16 MMOL/L (21-32) Anion Gap 19 mmol/L (5-15) Blood Urea Nitrogen 19 mg/dL (7-18) Creatinine 2.2 MG/DL (0.55-1.30) Estimat Glomerular Filtration Rate 30.1 mL/min (>60) Glucose Level 47 MG/DL (74-106) Calcium Level 8.5 MG/DL (8.5-10.1) Total Bilirubin 1.9 MG/DL (0.2-1.0) Direct Bilirubin 0.6 MG/DL (0.0-0.3) Aspartate Amino Transf (AST/SGOT) 92 U/L (15-37) Alanine Aminotransferase (ALT/SGPT) 41 U/L (12-78) Alkaline Phosphatase 102 U/L (46-116) Total Creatine Kinase 886 U/L (26-308) Troponin I 0.265 ng/mL (0.000-0.056) Total Protein 6.8 G/DL (6.4-8.2) Albumin 2.4 G/DL (3.4-5.0) Globulin 4.4 g/dL Albumin/Globulin Ratio 0.5 (1.0-2.7) Lipase 84 U/L (73-393) Rhythm Strip Diag. Results EP Interpretation: yes Rate: 110 Rhythm: no PVC's, no ectopy, other - Sinus tach Chest X-Ray Diagnostic Results Chest X-Ray Diagnostic Results : Chest X-Ray Ordered: Yes # of Views/Limited/Complete: 1 View Indication: Shortness of Breath EP Interpretation: Yes Interpretation: other - Poor respiratory effort, increased right lower lobe atelectasis infiltrate, pulmonary congestion Impression: Other - As above Electronically Signed by: Aishwarya Burris DO Last Vital Signs Date Time Temp Pulse Resp B/P (MAP) Pulse Ox O2 Delivery O2 Flow Rate FiO2 10/01/19 18:29 100.9 114 18 110/62 (78) 95 Simple Mask 8.0 Status: improved Disposition: ADMITTED INPATIENT Condition: Critical Aishwarya Burris DO Oct 01, 2019 19:18
[2019-10-01 19:31] LABS: ANION GAP 19 mmol/L (5-15); BLOOD UREA NITROGEN 19 mg/dL (7-18); CALCIUM 8.5 MG/DL (8.5-10.1); CARBON DIOXIDE 16 MMOL/L (21-32); CHLORIDE 106 MMOL/L (98-107); CREATININE 2.2 MG/DL (0.55-1.30); POTASSIUM 4.1 MMOL/L (3.5-5.1); SODIUM 141 MMOL/L (136-145)
[2019-10-01 19:43] LABS: ALANINE AMINOTRANSFERASE 41 U/L (12-78); ALBUMIN 2.4 G/DL (3.4-5.0); ALBUMIN/GLOBULIN RATIO 0.5 (1.0-2.7); ALKALINE PHOSPHATASE 102 U/L (46-116); ASPARTATE AMINO TRANSFERASE 92 U/L (15-37); BILIRUBIN,TOTAL 1.9 MG/DL (0.2-1.0); CREATINE KINASE 886 U/L (26-308)
[2019-10-01] MEDS ORDERED: cefTRIAXone 1 GM in NS 55 ML IVPB ONE (20:15)
[2019-10-01 20:23] LABS: BILIRUBIN,DIRECT 0.6 MG/DL (0.0-0.3)
--- NOTE | 2019-10-01 20:40 | NUR ---
ED Nurse Note: pt switched over to NC 4L O2 per Dr. Burris's verbal order. pt was satting at 89%-90%. ERMD notified and asked to increase to 6L O2 NC. will continue to monitor pt closely
--- NOTE | 2019-10-02 00:17 | NUR ---
ED Nurse Note: report given to MEG Webster
[2019-10-02 01:00] VITALS: BP 87/50
--- NOTE | 2019-10-02 01:00 | NUR ---
NURSE NOTES: Got report from Darin WEAVER. Initial assessment done. Pt nonverbal and not oriented. Pt non ambulatory. Pt unable to respond to verbal or touch. Pt on simple face mask. VS T:97.5 HR:98 R:20 BP:87/50 O2:89% Per report no skin issues. Pt here for hypotension, pulmonary fibrosis, sepsis. Pt is DNR. Pt has R hand 20g saline locked. ekg monitor tech placed on pt running Sinus Rhythm on the monitor. Pt resting in bed comfortably, bed in low and locked position, call light within reach, bedside table within reach. Continue to monitor. Dr. Michael andrade for orders. Awaiting call back. Addendum: 10/02/19 at 0301 by Sohail Das RN 0300: Pt on non-rebreather mask satting 95% Addendum: 10/02/19 at 0543 by Sohail Das RN 0928: Pt more alert and suddenly agitated and pulling non rebreather mask and everything. emergency restraints put on pt. Pt more oriented assessment Alert and oriented x 1(self)
[2019-10-02 04:00] VITALS: BP 90/50
[2019-10-02 08:00] VITALS: BP 100/50
--- NOTE | 2019-10-02 08:00 | NUR ---
HAND-OFF: Report given to Kay WEAVER.
--- NOTE | 2019-10-02 08:00 | NUR ---
NURSE NOTES: Nurse report given by MEG Gabriel. Patient's in stable condition, Ao x1, confused, no s/s of distress or SOB. Bed low and locked, call light within reach, side rails x 3 padded for seizure precaution, bed alarm is armed, ear pull machine operator is on. IV is saline locked, flushed well, patent and asymptomatic. Will continue to monitor.
--- NOTE | 2019-10-02 08:00 | NUR ---
HAND-OFF: Report given to Kay WEAVER.
[2019-10-02] MEDS ORDERED: HYDROcodone/Acetamin 5/325 tab ORAL PRN (08:30)
[2019-10-02] MEDS ORDERED: D5 1/2NS 1,000 ML IV SCH (08:30)
[2019-10-02] MEDS: Heparin 5000 units/ml inj SUBQ SCH ×2 (09:00→21:00)
[2019-10-02 09:17] LABS: HEMATOCRIT 24.7 % (42.0-52.0); HEMOGLOBIN 8.3 G/DL (14.2-18.0); MEAN CORPUSCULAR VOLUME 91 FL (80-99); PLATELET COUNT 102 K/UL (150-450); RED CELL DISTRIBUTION WIDTH 15.4 % (11.6-14.8); WHITE BLOOD COUNT 15.1 K/UL (4.8-10.8)
[2019-10-02 10:13] LABS: ANION GAP 6 mmol/L (5-15); BLOOD UREA NITROGEN 23 mg/dL (7-18); CALCIUM 8.2 MG/DL (8.5-10.1); CARBON DIOXIDE 27 MMOL/L (21-32); CHLORIDE 110 MMOL/L (98-107); CREATININE 1.5 MG/DL (0.55-1.30); PHOSPHORUS 4.2 MG/DL (2.5-4.9); POTASSIUM 4.3 MMOL/L (3.5-5.1); SODIUM 143 MMOL/L (136-145)
--- NOTE | 2019-10-02 10:30 | NUR ---
NURSE NOTES: Contacted Dr. Rodriguez regarding patient is very confused and agitated, he removed devices and IV. Dr. Rodriguez ordered bilateral soft wrist restraints on both wrists and Ativan PO 0.5mg q6hr PRN. Orders acknowledged and carried out. Bilateral soft wrist restraints applied on both wrist, 2 fingers width, pulse present both arms. Attempt to reorient reality and distraction to patient but unsuccessful. Will continue to monitor closely.
[2019-10-02] MEDS ORDERED: LORazepam 0.5mg tab ORAL PRN (11:00)
[2019-10-02 12:00] VITALS: BP 101/84
--- NOTE | 2019-10-02 12:23 | Consultation ---
History of Present Illness General Date patient seen: Oct 02, 2019 Chief Complaint: Altered Level of Consciousness Present Illness HPI 68 year old male with hx of endstage pulmonary fibrosis, on home O2, DNR, on hospice at home brought in by paramedics with CC of AlOC and dyspnea. Pt was put on 100 NRM. He was febrile and received one dose abx and admitted to telemetry. He is sitting up in bed, awake and comfortable but doesn't answer to my questions. Allergies: Coded Allergies: No Known Allergies (Unverified , 11/01/17) Medication History Scheduled Aripiprazole* (Abilify*), 20 MG ORAL DAILY, (Reported) Cholecalciferol (Vitamin D3)* (Vitamin D*), 1,000 UNIT ORAL DAILY, (Reported) Multivitamins* (Multivitamins*), 1 TAB ORAL DAILY, (Reported) Triamterene/Hydrochlorothiazid (Triamterene-Hctz 37.5-25 Mg Cp), 1 CAP ORAL DAILY [sleeping pill], ORAL BEDTIME, (Reported) Scheduled PRN Loratadine (Loratadine), 10 MG PO DAILY PRN for sneezing, (Reported) Patient History Healthcare decision maker Resuscitation status Advanced Directive on File Past Medical/Surgical History Past Medical/Surgical History: (1) Hospice care (2) Intractable back pain (3) Depression (4) Pulmonary fibrosis Review of Systems All Other Systems: negative except mentioned in HPI Physical Exam General Appearance: WD/WN, no apparent distress, mild distress Lines, tubes and drains: peripheral HEENT: normocephalic, atraumatic Neck: non-tender, normal alignment Respiratory/Chest: chest wall non-tender, normal breath sounds Breasts: no masses Cardiovascular/Chest: normal peripheral pulses Abdomen: normal bowel sounds Genitourinary/Rectal: normal genital exam Extremities: normal range of motion Last 24 Hour Vital Signs Date Time Temp Pulse Resp B/P (MAP) Pulse Ox O2 Delivery O2 Flow Rate FiO2 10/02/19 12:00 98.1 107 18 101/84 (90) 95 10/02/19 12:00 15.0 10/02/19 09:00 Non-Rebreather 15.0 10/02/19 08:00 97.7 100 16 100/50 (67) 98 10/02/19 08:00 15.0 10/02/19 08:00 94 10/02/19 04:00 97.8 96 20 90/50 (63) 98 10/02/19 04:00 100 10/02/19 03:10 94 Non-Rebreather 15.0 100 10/02/19 03:00 Non-Rebreather 15.0 10/02/19 03:00 95 10/02/19 01:56 Simple Mask 10.0 10/02/19 01:11 10.0 10/02/19 01:11 Simple Mask 10.0 10/02/19 01:00 97 10/02/19 01:00 97.5 98 20 87/50 (62) 89 10/02/19 00:30 100.9 103 18 86/48 95 Non-Rebreather 15.0 10/01/19 18:40 114 18 Non-Rebreather 15.0 10/01/19 18:40 100.9 114 18 77/52 95 Non-Rebreather 15.0 10/01/19 18:29 100.9 114 18 110/62 (78) 95 Simple Mask 8.0 Intake and Output 10/01/19 10/02/19 19:00 07:00 Intake Total 0 ml Balance 0 ml Intake Oral 0 ml # Bowel Movements 3 Laboratory Tests Test 10/01/19 18:50 10/01/19 20:40 10/02/19 00:45 10/02/19 08:40 White Blood Count 25.7 K/UL (4.8-10.8) *H 15.1 K/UL (4.8-10.8) H Red Blood Count 2.89 M/UL (4.70-6.10) L 2.70 M/UL (4.70-6.10) L Hemoglobin 8.6 G/DL (14.2-18.0) L 8.3 G/DL (14.2-18.0) L Hematocrit 28.7 % (42.0-52.0) L 24.7 % (42.0-52.0) L Mean Corpuscular Volume 99 FL (80-99) 91 FL (80-99) # Mean Corpuscular Hemoglobin 29.9 PG (27.0-31.0) 30.5 PG (27.0-31.0) Mean Corpuscular Hemoglobin Concent 30.1 G/DL (32.0-36.0) L 33.5 G/DL (32.0-36.0) Red Cell Distribution Width 16.5 % (11.6-14.8) H 15.4 % (11.6-14.8) H Platelet Count 131 K/UL (150-450) L 102 K/UL (150-450) L Mean Platelet Volume 6.7 FL (6.5-10.1) 5.8 FL (6.5-10.1) L Neutrophils (%) (Auto) % (45.0-75.0) % (45.0-75.0) Lymphocytes (%) (Auto) % (20.0-45.0) % (20.0-45.0) Monocytes (%) (Auto) % (1.0-10.0) % (1.0-10.0) Eosinophils (%) (Auto) % (0.0-3.0) % (0.0-3.0) Basophils (%) (Auto) % (0.0-2.0) % (0.0-2.0) Differential Total Cells Counted 100 100 Neutrophils % (Manual) 88 % (45-75) H 91 % (45-75) H Lymphocytes % (Manual) 6 % (20-45) L 2 % (20-45) L Monocytes % (Manual) 6 % (1-10) 7 % (1-10) Eosinophils % (Manual) 0 % (0-3) 0 % (0-3) Basophils % (Manual) 0 % (0-2) 0 % (0-2) Band Neutrophils 0 % (0-8) 0 % (0-8) Platelet Estimate Decreased L Decreased L Platelet Morphology Normal Normal Hypochromasia 1+ 1+ Anisocytosis 1+ 1+ Macrocytosis 1+ Sodium Level 141 MMOL/L (136-145) 143 MMOL/L (136-145) Potassium Level 4.1 MMOL/L (3.5-5.1) 4.3 MMOL/L (3.5-5.1) Chloride Level 106 MMOL/L (98-107) 110 MMOL/L (98-107) H Carbon Dioxide Level 16 MMOL/L (21-32) L 27 MMOL/L (21-32) Anion Gap 19 mmol/L (5-15) H 6 mmol/L (5-15) Blood Urea Nitrogen 19 mg/dL (7-18) H 23 mg/dL (7-18) H Creatinine 2.2 MG/DL (0.55-1.30) H 1.5 MG/DL (0.55-1.30) H Estimat Glomerular Filtration Rate 30.1 mL/min (>60) 46.8 mL/min (>60) Glucose Level 47 MG/DL (74-106) L 98 MG/DL (74-106) Calcium Level 8.5 MG/DL (8.5-10.1) 8.2 MG/DL (8.5-10.1) L Total Bilirubin 1.9 MG/DL (0.2-1.0) H Direct Bilirubin 0.6 MG/DL (0.0-0.3) H Aspartate Amino Transf (AST/SGOT) 92 U/L (15-37) H Alanine Aminotransferase (ALT/SGPT) 41 U/L (12-78) Alkaline Phosphatase 102 U/L (46-116) Total Creatine Kinase 886 U/L (26-308) H Troponin I 0.265 ng/mL (0.000-0.056) Total Protein 6.8 G/DL (6.4-8.2) Albumin 2.4 G/DL (3.4-5.0) L Globulin 4.4 g/dL Albumin/Globulin Ratio 0.5 (1.0-2.7) L Lipase 84 U/L (73-393) Lactic Acid Level 5.00 mmol/L (0.4-2.0) H 2.10 mmol/L (0.66-2.22) Phosphorus Level 4.2 MG/DL (2.5-4.9) Magnesium Level 1.7 MG/DL (1.8-2.4) L Height (Feet): 5 Height (Inches): 6.00 Weight (Pounds): 180 Medications Current Medications Medications (Trade) Dose Ordered Sig/Ceasar Route PRN Reason Start Time Stop Time Status Last Admin Dose Admin Acetaminophen (Tylenol) 650 mg Q6H PRN ORAL Mild Pain/Temp > 100.5 10/02/19 08:30 11/01/19 08:29 Acetaminophen/ Hydrocodone Bitart ([place] 5/325) 1 tab Q6H PRN ORAL For Pain 10/02/19 08:30 10/09/19 08:29 Ceftriaxone Sodium 1 gm/ Dextrose 55 ml @ 110 mls/hr Q24H IVPB 10/02/19 20:00 10/09/19 19:59 Dextrose/Sodium Chloride 1,000 ml @ 75 mls/hr [id number] IV 10/02/19 08:30 11/01/19 08:29 10/02/19 10:10 Heparin Sodium (Porcine) (Heparin 5000 units/ml) 5,000 units EVERY 12 HOURS SUBQ 10/02/19 09:00 11/01/19 08:59 Lorazepam (Ativan) 0.5 mg Q6H PRN ORAL For Anxiety 10/02/19 11:00 10/09/19 10:59 Metronidazole 100 ml @ 100 mls/hr Q8H IVPB 10/02/19 10:00 10/09/19 09:59 10/02/19 10:10 Ondansetron HCl (Zofran) 4 mg Q4H PRN IVP Nausea & Vomiting 10/02/19 08:30 11/01/19 08:29 Assessment/Plan Problem List: (1) Sepsis ICD Codes: A41.9 - Sepsis, unspecified organism SNOMED: 34732022 (2) Pulmonary fibrosis ICD Codes: J84.10 - Pulmonary fibrosis, unspecified SNOMED: 00378763 (3) Altered level of consciousness ICD Codes: R40.4 - Transient alteration of awareness SNOMED: 8079539 (4) Depression ICD Codes: F32.9 - Major depressive disorder, single episode, unspecified SNOMED: 19499142 (5) Seizure disorder ICD Codes: G40.909 - Epilepsy, unspecified, not intractable, without status epilepticus SNOMED: 740161739 Assessment/Plan: hyde culture iv abx titrate fio2 to sat of 92% Id evaluation symptomatic treatment DNr is appropriate. Anuj Hinojosa MD Oct 02, 2019 12:23
[2019-10-02] MEDS ORDERED: Promethazine/Codeine 5ml UD ORAL PRN (12:30)
[2019-10-02 13:11] LABS: CREATINE KINASE 982 U/L (26-308)
--- NOTE | 2019-10-02 14:00 | NUR ---
NURSE NOTES: Patient's ordered for urine collect. Patient has been very lethargic and confused. Bladder scan showed 600cc urine retaining in the bladder. Contacted regarding the patient's urine retention, Dr Hinojosa aware and ordered for smith catheter insertion. Smith inserted without difficulty, urine flashback and collected 700ml in smith bag. Urine color is noted to be eloy color, no sediments, no clots, strong odor noted. Urine culture is collected and sent to lab. Awaiting for result.
--- NOTE | 2019-10-02 14:00 | NUR ---
NURSE NOTES: Patient's ordered for urine collect. Patient has been very lethargic and confused. Bladder scan showed 700cc urine rete in the bladder. Contacted regarding the patient's
--- NOTE | 2019-10-02 14:15 | Diagnostic Imaging Report ---
Indication: Dyspnea Comparison: 08/21/2019 A single view chest radiograph was obtained. Findings: Pulmonary vascular congestion appears worse compared to the previous exam. Heart is enlarged. There may be a chronic interstitial fibrosis superimposed. Bones are osteopenic. Stomach is distended with air. IMPRESSION: Suspected CHF superimposed on chronic interstitial disease.
--- NOTE | 2019-10-02 14:30 | Consultation ---
DATE OF CONSULTATION: 10/02/2019 CONSULTING PHYSICIAN: Girish Perry M.D. REFERRING PHYSICIAN: Ulises Rodriguez M.D. REASON FOR CONSULTATION: 1. Acute kidney injury. 2. CKD, stage IIIB with creatinine 1.3 baseline. HISTORY OF PRESENT ILLNESS: The patient is a pleasant 68-year-old gentleman who was brought in by paramedics for further evaluation and care of generalized weakness. Family says he had a seizure yesterday as they have been in contact with the hospice nurse. The patient remains more lethargic than usual. Had not been eating or drinking well. Noted to have an elevated creatinine from baseline of 1.3 up to 2.2. ALLERGIES: No known drug allergies. PAST MEDICAL HISTORY: 1. Pulmonary fibrosis. 2. Hypertension. 3. Diabetes mellitus. 4. Seizures. 5. Traumatic brain injury. FAMILY HISTORY: Positive for hypertension and diabetes. REVIEW OF SYSTEMS: Cannot be obtained as the patient is lethargic. LABORATORY DATA: Labs dated 10/01/2019, white cell count 25.7, platelet count 131, hemoglobin 8.6. Sodium 141, potassium 4.1, creatinine 2.2, BUN 19. Lactic acid 5, improved to 2.1. PHYSICAL EXAMINATION: VITAL SIGNS: Blood pressure 100/50, respiratory rate 16, pulse 100, temperature 97.7, non-rebreather 15 liters oxygen flow rate, FiO2 of 100, pulse oximetry 94%. GENERAL: The patient is somnolent, arousable, confused. HEENT: Extraocular muscles. No lymphadenopathy noted. CARDIOVASCULAR: S1, S2. Tachycardic. PULMONARY: Diffuse expiratory wheezing. ABDOMEN: Nondistended and nontender. EXTREMITIES: No edema. ASSESSMENT AND PLAN: 1. Acute kidney injury on chronic kidney disease stage IIIB secondary to ischemic ATN from hypotension and component of intravascular volume depletion. At this time, agree with hydration and maintaining MAP greater than 65 millimeter of mercury for adequate renal perfusion. 2. End-stage chronic obstructive pulmonary disease, pulmonary fibrosis. Management per Pulmonary. 3. Dehydration. Agree with hypotonic solution. We will continue to monitor electrolytes carefully. 4. Hypotension. Defer management to primary care physician. Agree with IV hydration. Awaiting hospice evaluation. Girish Perry MD DR: KARIE JOB#: [id number] CC:
[2019-10-02 15:02] LABS: APPEARANCE,URINE CLEAR; BILIRUBIN, URINE NEGATIVE (NEGATIVE); GLUCOSE, URINE (UA) NEGATIVE (NEGATIVE); KETONES,URINE 1+ (NEGATIVE); LEUKOCYTE ESTERASE ,URINE NEGATIVE (NEGATIVE); NITRITE,URINE NEGATIVE (NEGATIVE); PH,URINE 5 (4.5-8.0); PROTEIN,URINE 2+ (NEGATIVE); UROBILINOGEN,URINE NORMAL MG/DL (0.0-1.0)
[2019-10-02 15:07] LABS: COLOR,URINE YELLOW
--- NOTE | 2019-10-02 15:55 | NUR ---
CASE MANAGEMENT:REVIEW 68 YR OLD MALE BIBA FROM HOME CC: ALOC PMH: PULMONARY FIBROSIS X1 YR. ON SERVICE WITH HOSPICE SI: SEPSIS. ASPIRATION INTO AIRWAY. AMS.DEHYDRATION 100.9 114 18 77/52 95% ON MASK @ 8L WBC+25.7 H/H-8.6/28.7 TROPONIN(+) 0.265 IS: PLACED ON NON REBREATHER 500CC NS BOLUS IV ROCEPHIN IV FLAGYL 1L NS BOLUS BLOOD CX CHEST XRAY : TO TELEMETRY
[2019-10-02 16:00] VITALS: BP 105/80
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
--- NOTE | 2019-10-02 16:26 | NUR ---
NURSE NOTES: Found patient pulled out his smith and patient is bleeding from the site. Cleaned patient and checked for trauma at the site. Patient is very confused and agitated. Called Dr. Hinojosa and ordered Haldol IM 5mg q4hr PRN. Order acknowledged and carried out. Asked Dr. Hinojosa if wants to reinsert smith and MD declined to order smith reinsertion. Will continue to monitor closely.
[2019-10-02] MEDS: Haloperidol 5mg/ml Inj IM PRN (17:02)
--- NOTE | 2019-10-02 18:52 | History & Physical ---
History and Physical History & Physicial Dictated for Int med-DR Rodriguez no. [id number]. Mathew Adams MD Oct 02, 2019 18:52
--- NOTE | 2019-10-02 19:40 | NUR ---
NURSE NOTES: Pt is on a nonrebreather mask at 15L; O2 sat 93%
--- NOTE | 2019-10-02 19:40 | NUR ---
NURSE NOTES: Received pt and report from MEG Tim. Observed pt resting in bed with both eyes open. Pt is A/Ox1; confused and agitated. Pt is on bilateral soft wrist restraints; 2 fingers width noted. Sensations and pulses present. Skin is intact and no swelling noted. aerial hurricane hunter is in place, IV site intact, asymptomatic, and patent. Bed is in the lowest position and locked. Call light and bedside table is within reach. No signs/symptoms of acute distress noted at this time. Will continue plan of care.
--- NOTE | 2019-10-02 19:55 | NUR ---
HAND-OFF: Report given to MEG Nava. Patient's still confused and agitated, plan of care endorsed.
[2019-10-02 20:00] VITALS: BP 103/52
[2019-10-02] MEDS ORDERED: cefTRIAXone 1 GM in D5W 55 ML IVPB SCH (20:00)
[2019-10-02] MEDS: Theophylline ER 100mg ORAL SCH (21:04)
--- NOTE | 2019-10-02 21:15 | History and Physical Report ---
DATE OF ADMISSION: 10/01/2019 CHIEF COMPLAINT: The patient is a 68-year-old male, who presents with a chief complaint of generalized weakness and postictal. HISTORY OF PRESENT ILLNESS: The patient was admitted to [facility] in July of 2019. Please see history and physical and discharge summary dictated at that time. The patient presented to [place] emergency room after having a seizure reported by the family. The patient was reported to be more lethargic than usual. Upon arrival at [facility], the patient was found to have acute on chronic renal failure. The patient is admitted with dehydration and postictal state. REVIEW OF SYSTEMS: Unable to assess secondary to the patient's mental status. PAST MEDICAL HISTORY: Significant for, 1. End-stage pulmonary fibrosis, stage IV. 2. Hypertension. 3. Diabetes type 2. 4. Seizure disorder. 5. History of traumatic brain injury. 6. Chronic renal disease, stage III. PAST SURGICAL HISTORY: Unknown. CURRENT MEDICATIONS: 1. Abilify 20 mg p.o. daily. 2. Vitamin D3 1000 units p.o. daily. 3. Loratadine 10 mg p.o. daily. 4. Triamterene/hydrochlorothiazide 37.5/25 tablet one tablet p.o. daily. ALLERGIES: No known drug allergies. SOCIAL HISTORY: The patient is and lives with his family. The patient denies tobacco or alcohol use. PHYSICAL EXAMINATION: VITAL SIGNS: Temperature 97.8, respirations 20, pulse 96, and blood pressure 90/50. GENERAL: The patient is a well-developed and well-nourished white male, in no apparent distress. HEENT: Eyes, pupils are equal and responsive to light and accommodation. Extraocular movements are intact. NECK: Supple without lymphadenopathy. CHEST: Lungs are clear to auscultation bilaterally without wheezes or rales. CARDIOVASCULAR: Regular rhythm and rate. S1, S2 are normal without murmurs, rubs, or gallops. ABDOMINAL: Soft, nontender, and nondistended with positive bowel sounds. No evidence of hepatosplenomegaly. Currently, no rebound or guarding noted. EXTREMITIES: Negative for clubbing, cyanosis, or edema. RECTAL/GENITAL: Not performed. NEUROLOGIC: Cranial nerves II through XII are grossly intact without focal deficits. LABORATORY STUDIES: WBC 25.7, hemoglobin 8.6, hematocrit 28.7, and platelets 131,000. Sodium 141, potassium 4.1, chloride 106, CO2 16, BUN 19, creatinine 2.2, and glucose 47. Total bilirubin elevated at 1.9. Urinalysis showed 2+ protein, 1+ ketones, 1+ blood with 0 to 2 rbc's. Chest x-ray was reported as suspected congestive heart failure. Troponin 0.265. ASSESSMENT: This is a 68-year-old male. 1. Seizure disorder. 2. Altered mental status. 3. Hypertension. 4. Dehydration. 5. Anemia of chronic renal disease. 6. History of hypertension. 7. Diabetes type 2. 8. History of traumatic brain injury. 9. Acute on chronic renal failure. TREATMENT: 1. Seizure disorder. The patient has been started on Ativan. Seizures may be secondary to previous traumatic brain injury. This may be breakthrough seizures. 2. Hypotension. This is probably secondary to dehydration. 3. Dehydration. The patient is currently receiving intravenous fluids. 4. Anemia of chronic renal disease. A Nephrology consultation has been obtained with Dr. Perry. 5. Hypertension. The patient is currently hypotensive. 6. Diabetes type 2. The patient was admitted with hypoglycemia. 7. Traumatic brain injury. 8. Renal failure. As above, a Nephrology consultation has been obtained with Dr. Perry. Mathew Adams M.D. DR: SHELLIE JOB#: [id number] CC:
--- NOTE | 2019-10-02 22:50 | NUR ---
NURSE NOTES: Bladder scanned showed 253ml. Pt voided shortly after. Some bleeding noted. Will continue to monitor pt.
[2019-10-03] VITALS: BP 106/53
--- NOTE | 2019-10-03 00:55 | NUR ---
NURSE NOTES: Pt became agitated and started screaming, "Help me! Help me! Please!" Pt tried pulling off restraints multiple times. Administered Ativan 0.5mg PO. Will continue to monitor pt.
--- NOTE | 2019-10-03 02:23 | NUR ---
NURSE NOTES: Observed pt restless and awake in bed. Pt continues to scream, "Help! Help! Get me out of bed!" No signs/symptoms of acute distress noted at this time. Will continue plan of care.
[2019-10-03] MEDS: Haloperidol 5mg/ml Inj IM PRN (02:59)
--- NOTE | 2019-10-03 03:26 | NUR ---
NURSE NOTES: Pt continues to shout and was observed trying to get out of bed with bilateral soft wrist restraints on. Legs were observed to be on side rails. Administered Haldol 5mg IM. Will monitor pt closely.
[2019-10-03 04:00] VITALS: BP 114/62
--- NOTE | 2019-10-03 06:19 | NUR ---
NURSE NOTES: Bladder scan shows 92ml. Pt has been voiding through out night. Will continue to monitor pt.
[2019-10-03 07:27] LABS: HEMATOCRIT 26.4 % (42.0-52.0); MEAN CORPUSCULAR VOLUME 90 FL (80-99); PLATELET COUNT 119 K/UL (150-450); RED BLOOD COUNT 2.92 M/UL (4.70-6.10); RED CELL DISTRIBUTION WIDTH 15.8 % (11.6-14.8)
--- NOTE | 2019-10-03 07:42 | NUR ---
HAND-OFF: Report given to MEG Moreno. Plan of care endorsed. Addendum: 10/03/19 at 0745 by Adri Russo Mai, RN Endorsed blood culture result of GRAM POS COCCI IN CLUSTERS to MEG Moreno.
--- NOTE | 2019-10-03 07:45 | NUR ---
NURSE NOTES: Received report from Brandy/RN, Patient is awake, lying semi-carey's, agitated. On non-rebreather mask, 112 HR on monitor, Will take vitals. IV on right FA, patent, no bleeding or infiltration noted. On Bilateral soft wrist restraint for safety, bed in low position and locked, call light within reach. encouraged to use call light when needed. Will continue to monitor.
[2019-10-03 07:48] LABS: INR 3.1 (0.9-1.1)
[2019-10-03 07:54] LABS: LACTATE DEHYDROGENASE 771 U/L (81-234); PHOSPHORUS 2.3 MG/DL (2.5-4.9)
[2019-10-03 08:00] VITALS: BP 131/63
[2019-10-03 08:01] LABS: % IRON SATURATION 5 % (15-50); IRON 14 ug/dL (50-175); TOTAL IRON BINDING CAPACITY 267 ug/dL (250-450)
[2019-10-03 08:03] LABS: ALANINE AMINOTRANSFERASE 64 U/L (12-78); ALBUMIN 2.4 G/DL (3.4-5.0); ALBUMIN/GLOBULIN RATIO 0.5 (1.0-2.7); ALKALINE PHOSPHATASE 99 U/L (46-116); ANION GAP 11 mmol/L (5-15); ASPARTATE AMINO TRANSFERASE 239 U/L (15-37); BLOOD UREA NITROGEN 25 mg/dL (7-18); CALCIUM 8.4 MG/DL (8.5-10.1); CARBON DIOXIDE 24 MMOL/L (21-32); CHLORIDE 111 MMOL/L (98-107); CREATININE 1.2 MG/DL (0.55-1.30); POTASSIUM 3.4 MMOL/L (3.5-5.1); SODIUM 146 MMOL/L (136-145)
[2019-10-03 08:07] LABS: BILIRUBIN,DIRECT 0.9 MG/DL (0.0-0.3)
--- NOTE | 2019-10-03 08:07 | NUR ---
NURSE NOTES: Patient's oxygen saturation is in low 60's. Paged dr. Hinojosa to get an order for ABG's and Bipap order. Received order for Bipap and carried out. no order for ABG's at this time.
--- NOTE | 2019-10-03 08:28 | NUR ---
NURSE NOTES: RT at bed side, Patient on Bipap, O2 sat low 70's. will monitor.
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
--- NOTE | 2019-10-03 09:30 | NUR ---
NURSE NOTES: Called , Victoria Horvath, and left message regarding change of patient's condition.
[2019-10-03] MEDS: Heparin 5000 units/ml inj SUBQ SCH (09:33)
[2019-10-03] MEDS: Theophylline ER 100mg ORAL SCH (09:33)
--- NOTE | 2019-10-03 09:49 | NUR ---
RADIOLOGY DEPT., CHEST X-RAY DONE.-P.DYE
--- NOTE | 2019-10-03 10:00 | NUR ---
NURSE NOTES: called back, notified her Dropping HR and O2 Desaturation.
--- NOTE | 2019-10-03 10:17 | Nephrology Progress Note ---
Assessment/Plan Assessment/Plan: A/P 1. FINA on CKD 3 stage IIIB secondary to ischemic ATN from hypotension and component of intravascular volume depletion. - resolved, Cr down to 1.2 - will sign off today 2. End-stage chronic obstructive pulmonary disease, pulmonary fibrosis. - Management per Pulmonary. DNR/I - possible hospice 3. Dehydration. - Resolved 4. Hypotension. Defer management to primary care physician. Awaiting hospice evaluation. Subjective Date patient seen: Oct 03, 2019 Time patient seen: 10:15 ROS Limited/Unobtainable: Yes Allergies: Coded Allergies: No Known Allergies (Unverified , 11/01/17) Subjective Patient in resp distress on facial BiPAP Objective Last 24 Hour Vital Signs Date Time Temp Pulse Resp B/P (MAP) Pulse Ox O2 Delivery O2 Flow Rate FiO2 10/03/19 09:06 113 73 Full Face 100 10/03/19 08:20 110 71 Full Face 100 10/03/19 08:20 111 71 Bi-Pap 100 10/03/19 08:20 68 Bi-Pap 100 10/03/19 08:00 97.0 111 24 131/63 (85) 60 10/03/19 04:00 97.2 105 21 114/62 (79) 96 10/03/19 04:00 15.0 10/03/19 04:00 112 10/03/19 00:00 15.0 10/03/19 00:00 96.9 95 23 106/53 (70) 97 10/03/19 00:00 95 10/02/19 21:00 Non-Rebreather 15.0 10/02/19 20:21 96 Non-Rebreather 15.0 100 10/02/19 20:00 15.0 10/02/19 20:00 97.1 100 22 103/52 (69) 93 10/02/19 20:00 102 10/02/19 16:00 15.0 10/02/19 16:00 110 10/02/19 16:00 97.6 70 24 105/80 (88) 96 10/02/19 12:00 100 10/02/19 12:00 98.1 107 18 101/84 (90) 95 10/02/19 12:00 15.0 Intake and Output 10/02/19 10/03/19 19:00 07:00 Output Total 700 ml Balance -700 ml Output Urine Total 700 ml # Voids 2 3 # Bowel Movements 2 Laboratory Tests 10/02/19 14:00: Urine Color Yellow, Urine Appearance Clear, Urine pH 5, Urine Specific [place] 1.020, Urine Protein 2+H, Urine Glucose (UA) Negative, Urine Ketones 1+H, Urine Blood 1+H, Urine Nitrite Negative, Urine Bilirubin Negative, Urine Urobilinogen Normal, Urine Leukocyte Esterase Negative, Urine RBC 0-2H, Urine WBC 0-2, Urine Squamous Epithelial Cells Occasional, Urine Bacteria Occasional, Urine Eosinophils None seen, Urine Random Sodium < 20L, Urine Potassium Timed 40 10/03/19 03:50: Stool Occult Blood [Pending] 10/03/19 06:50: White Blood Count 14.0H, Red Blood Count 2.92L, Hemoglobin 9.0L, Hematocrit 26.4L, Mean Corpuscular Volume 90, Mean Corpuscular Hemoglobin 30.8, Mean Corpuscular Hemoglobin Concent 34.1, Red Cell Distribution Width 15.8H, Platelet Count 119L, Mean Platelet Volume 5.9L, Neutrophils (%) (Auto) , Lymphocytes (%) (Auto) , Monocytes (%) (Auto) , Eosinophils (%) (Auto) , Basophils (%) (Auto) , Neutrophils % (Manual) [Pending], Lymphocytes % (Manual) [Pending], Platelet Estimate [Pending], Platelet Morphology [Pending], Erythrocyte Sedimentation Rate [Pending], Reticulocyte Count [Pending], Prothrombin Time 31.2H, Prothromb Time International Ratio 3.1H, Activated Partial Thromboplast Time 34H, Sodium Level 146H, Potassium Level 3.4L, Chloride Level 111H, Carbon Dioxide Level 24, Anion Gap 11, Blood Urea Nitrogen 25H, Creatinine 1.2, Estimat Glomerular Filtration Rate > 60, Glucose Level 93, Calcium Level 8.4L, Phosphorus Level 2.3L, Magnesium Level 1.8, Iron Level 14L, Total Iron Binding Capacity 267, Percent Iron Saturation 5L, Unsaturated Iron Binding 253, Total Bilirubin 2.0H, Direct Bilirubin 0.9H, Aspartate Amino Transf (AST/SGOT) 239H, Alanine Aminotransferase (ALT/SGPT) 64, Alkaline Phosphatase 99, Lactate Dehydrogenase 771H, Troponin I 0.242H, C-Reactive Protein, Quantitative 14.5H, Pro-B-Type Natriuretic Peptide 1026H, Total Protein 6.9, Albumin 2.4L, Globulin 4.5, Albumin/Globulin Ratio 0.5L, Carcinoembryonic Antigen [Pending], Vitamin B12 Level > 2000H, Folate 4.1L Height (Feet): 5 Height (Inches): 6.00 Weight (Pounds): 180 General Appearance: no apparent distress, alert EENT: normal ENT inspection Neck: normal alignment, supple Cardiovascular: normal rate, regular rhythm Respiratory/Chest: rhonchi - bilaterally Abdomen: non tender, soft Edema: no edema noted Arm (L), no edema noted Arm (R), no edema noted Leg (L), no edema noted Leg (R), no edema noted Pedal (L), no edema noted Pedal (R), no edema noted Generalized Girish Perry MD Oct 03, 2019 10:17
--- NOTE | 2019-10-03 10:24 | NUR ---
NURSE NOTES: Restraint is off.
--- NOTE | 2019-10-03 10:28 | NUR ---
NURSE NOTES: Dr. Hinojosa is aware of BP 51/30, HR 48.
--- NOTE | 2019-10-03 10:41 | NUR ---
NURSE NOTES: on her way to [facility]
--- NOTE | 2019-10-03 10:53 | Pulmonology Progress Note ---
Assessment/Plan Problems: (1) Sepsis (2) Pulmonary fibrosis (3) Altered level of consciousness (4) Depression (5) Seizure disorder Assessment/Plan pt passed during my exam in the room, very comfortable. Pt's aware, on her way to [employer]. Subjective ROS Limited/Unobtainable: No Interval Events: morbund, Allergies: Coded Allergies: No Known Allergies (Unverified , 11/01/17) Objective Last 24 Hour Vital Signs Date Time Temp Pulse Resp B/P (MAP) Pulse Ox O2 Delivery O2 Flow Rate FiO2 10/03/19 09:06 113 73 Full Face 100 10/03/19 08:20 110 71 Full Face 100 10/03/19 08:20 111 71 Bi-Pap 100 10/03/19 08:20 68 Bi-Pap 100 10/03/19 08:00 97.0 111 24 131/63 (85) 60 10/03/19 04:00 97.2 105 21 114/62 (79) 96 10/03/19 04:00 15.0 10/03/19 04:00 112 10/03/19 00:00 15.0 10/03/19 00:00 96.9 95 23 106/53 (70) 97 10/03/19 00:00 95 10/02/19 21:00 Non-Rebreather 15.0 10/02/19 20:21 96 Non-Rebreather 15.0 100 10/02/19 20:00 15.0 10/02/19 20:00 97.1 100 22 103/52 (69) 93 10/02/19 20:00 102 10/02/19 16:00 15.0 10/02/19 16:00 110 10/02/19 16:00 97.6 70 24 105/80 (88) 96 10/02/19 12:00 100 10/02/19 12:00 98.1 107 18 101/84 (90) 95 10/02/19 12:00 15.0 Intake and Output 10/02/19 10/03/19 19:00 07:00 Output Total 700 ml Balance -700 ml Output Urine Total 700 ml # Voids 2 3 # Bowel Movements 2 General Appearance: cachetic HEENT: normocephalic Respiratory/Chest: chest wall non-tender Cardiovascular: other - minimal pulses Microbiology Date/Time Source Procedure Growth Status 10/01/19 20:45 Blood Blood Culture - Preliminary NO GROWTH AFTER 24 HOURS Resulted 10/01/19 20:30 Blood Blood Culture - Preliminary Resulted Laboratory Tests 10/02/19 14:00: Urine Color Yellow, Urine Appearance Clear, Urine pH 5, Urine Specific [place] 1.020, Urine Protein 2+H, Urine Glucose (UA) Negative, Urine Ketones 1+H, Urine Blood 1+H, Urine Nitrite Negative, Urine Bilirubin Negative, Urine Urobilinogen Normal, Urine Leukocyte Esterase Negative, Urine RBC 0-2H, Urine WBC 0-2, Urine Squamous Epithelial Cells Occasional, Urine Bacteria Occasional, Urine Eosinophils None seen, Urine Random Sodium < 20L, Urine Potassium Timed 40 10/03/19 03:50: Stool Occult Blood [Pending] 10/03/19 06:50: White Blood Count 14.0H, Red Blood Count 2.92L, Hemoglobin 9.0L, Hematocrit 26.4L, Mean Corpuscular Volume 90, Mean Corpuscular Hemoglobin 30.8, Mean Corpuscular Hemoglobin Concent 34.1, Red Cell Distribution Width 15.8H, Platelet Count 119L, Mean Platelet Volume 5.9L, Neutrophils (%) (Auto) , Lymphocytes (%) (Auto) , Monocytes (%) (Auto) , Eosinophils (%) (Auto) , Basophils (%) (Auto) , Neutrophils % (Manual) [Pending], Lymphocytes % (Manual) [Pending], Platelet Estimate [Pending], Platelet Morphology [Pending], Erythrocyte Sedimentation Rate [Pending], Reticulocyte Count [Pending], Prothrombin Time 31.2H, Prothromb Time International Ratio 3.1H, Activated Partial Thromboplast Time 34H, Sodium Level 146H, Potassium Level 3.4L, Chloride Level 111H, Carbon Dioxide Level 24, Anion Gap 11, Blood Urea Nitrogen 25H, Creatinine 1.2, Estimat Glomerular Filtration Rate > 60, Glucose Level 93, Calcium Level 8.4L, Phosphorus Level 2.3L, Magnesium Level 1.8, Iron Level 14L, Total Iron Binding Capacity 267, Percent Iron Saturation 5L, Unsaturated Iron Binding 253, Total Bilirubin 2.0H, Direct Bilirubin 0.9H, Aspartate Amino Transf (AST/SGOT) 239H, Alanine Aminotransferase (ALT/SGPT) 64, Alkaline Phosphatase 99, Lactate Dehydrogenase 771H, Troponin I 0.242H, C-Reactive Protein, Quantitative 14.5H, Pro-B-Type Natriuretic Peptide 1026H, Total Protein 6.9, Albumin 2.4L, Globulin 4.5, Albumin/Globulin Ratio 0.5L, Carcinoembryonic Antigen [Pending], Vitamin B12 Level > 2000H, Folate 4.1L Current Medications Medications (Trade) Dose Ordered Sig/Ceasar Route PRN Reason Start Time Stop Time Status Last Admin Dose Admin Acetaminophen (Tylenol) 650 mg Q6H PRN ORAL Mild Pain/Temp > 100.5 10/02/19 08:30 11/01/19 08:29 Acetaminophen/ Hydrocodone Bitart ([place] 5/325) 1 tab Q6H PRN ORAL For Pain 10/02/19 08:30 10/09/19 08:29 Ceftriaxone Sodium 1 gm/ Dextrose 55 ml @ 110 mls/hr Q24H IVPB 10/02/19 20:00 10/09/19 19:59 10/02/19 20:06 Haloperidol Lactate (Haldol) 5 mg Q4H PRN IM Agitation 10/02/19 16:30 11/01/19 16:29 10/03/19 02:59 Heparin Sodium (Porcine) (Heparin 5000 units/ml) 5,000 units EVERY 12 HOURS SUBQ 10/02/19 09:00 11/01/19 08:59 Lorazepam (Ativan) 0.5 mg Q6H PRN ORAL For Anxiety 10/02/19 11:00 10/09/19 10:59 10/03/19 00:50 Metronidazole 100 ml @ 100 mls/hr Q12HR IVPB 10/03/19 21:00 10/10/19 20:59 Ondansetron HCl (Zofran) 4 mg Q4H PRN IVP Nausea & Vomiting 10/02/19 08:30 11/01/19 08:29 Promethazine HCl/ Codeine (Phenergan with Codeine) 5 ml Q4H PRN ORAL For Cough 10/02/19 12:30 11/01/19 12:29 Theophylline (Shane-Dur) 100 mg EVERY 12 HOURS ORAL 10/02/19 21:00 11/01/19 20:59 10/02/19 21:04 Anuj Hinojosa MD Oct 03, 2019 10:53
--- NOTE | 2019-10-03 11:00 | NUR ---
NURSE NOTES: Patient code is DNR/DNI, Patient at 1054. Dr Hinojosa pronounced . on her way to the hospital.
--- NOTE | 2019-10-03 11:03 | NUR ---
PRONOUNCEMENT: No CodE, DNR/DNI Patient at 1054 Dr Hinojosa pronounced . on the way to the hospital.
--- NOTE | 2019-10-03 11:32 | NUR ---
NURSE NOTES: at bedside, according to her, no mortuary arrange yet, called to social work associate.
--- NOTE | 2019-10-03 12:03 | Diagnostic Imaging Report ---
Indication: Dyspnea Comparison: 10/01/2019 A single view chest radiograph was obtained. Findings: There is diffuse worsening airspace disease within both lungs. Heart is borderline enlarged. Lung volumes are low. Bones are unremarkable. IMPRESSION: Worsening extensive bilateral airspace disease
--- NOTE | 2019-10-03 13:39 | NUR ---
*-* INSURANCE *-* ALL CLINICALS AND REVIEWS HAVE BEEN FAXED TO: Yuli Fuentes CM or tracking# yet but in the meantime please fax clinicals to Tiffani bolaños# [phone] fax#[phone]
--- NOTE | 2019-10-05 09:27 | Discharge Summary ---
Discharge Summary Discharge Summary _ SUMMARY DATE OF ADMISSION: 10/01/2019 DATE OF EXPIRATION: 10/03/2019 REASON FOR ADMISSION: 68 years old male with past medical history of end-stage pulmonary fibrosis, home oxygen dependent, diabetes mellitus, history of traumatic brain injury, seizure disorder, DNR status, on hospice, was brought by paramedics with chief complaint of dyspnea and altered level of consciousness. Per [facility]ST DNR/DNI status with comfort focused care. Patient was placed on 100% nonrebreathing mask. Patient was febrile . In ED he received empiric antibiotics and admitted to telemetry floor for further management. CONSULTANTS: pulmonary Dr. Hinojosa steam distribution supervisor Dr. Perry [facility] COURSE: Patient admitted to telemetry floor and started on IV fluids and empiric antibiotic. Supplemental oxygen titrated to keep pulse oximetry above 92%. Pulmonary toilet with bronchodilator provided. Patient was on nonrebreather mask , on the BiPAP and then back to nonrebreather mask. Chest x-ray revealed suspected CHF, superimposed on chronic interstitial disease. Follow-up chest x-ray revealed worsening extensive bilateral airspace disease. Antitussive provided as needed. Trial of theophylline initiated. DVT prophylaxis provided. Blood culture revealed 1 out of 2 Staph coagulase negative. Sputum culture was negative. Leukocytosis was trending down. Fevers resolved. Renal parameters and electrolytes were closely monitored. Creatinine trended down from 2.2 to 1.2 . IV fluids stopped. Electrolytes corrected as per steam distribution supervisor. Hemoglobin and hematocrit were closely monitored with goal to keep hemoglobin above 7. Anemia work-up was consistent with anemia of chronic disease. CEA was elevated 16.4. Stool for occult blood was negative. Folate was low 4.1 Noted elevated total bilirubin , direct bilirubin and AST along with LDH 771. On 10/03 noted elevated troponin - 0.242 -troponin leak versus possible NSTEMI. Unfortunately patient condition continued to deteriorate. He was pronounced on at 10:54 am. Cause of : cardiopulmonary arrest FINAL DIAGNOSES: Sepsis End-stage COPD Pulmonary fibrosis Acute kidney injury on chronic kidney disease, stage III (secondary to ischemic acute tubular necrosis from hypotension and component of intravascular volume depletion) - resolved Elevated troponin Altered level of consciousness Dehydration Hypotension with history of hypertension Seizure disorder Depression Anemia of chronic renal disease Folic acid deficiency Elevated CEA Diabetes mellitus type 2 History of traumatic brain injury DNR status I have been assigned to dictate discharge summary for this account. I was not involved in the patient's management. Lupe Mccauley NP Oct 05, 2019 09:27
--- NOTE | 2019-10-05 14:58 | NUR ---
*-* INSURANCE *-* DISCHARGE SUMMARY HAS BEEN FAXED: Yuli Fuentes CM or tracking# yet but in the meantime please fax clinicals to Tiffani # [phone] fax#[phone]
== END 2019-10-03 11:00 | disposition expired | DRG 871 ==
LOC: EDBD 18:33 → EMR 19:54 → 2E 22:10 → EDBEDREQ 22:57 → 2E 10-03 08:25
DX: A41.9 Sepsis, unspecified organism (principal); N17.0 Acute kidney failure with tubular necrosis; J84.10 Pulmonary fibrosis, unspecified; I12.9 Hypertensive chronic kidney disease with stage 1 through stage 4 chronic kidney disease, or unspecified chronic kidney disease; N18.3 Chronic kidney disease, stage 3 (moderate); E86.0 Dehydration; E11.22 Type 2 diabetes mellitus with diabetic chronic kidney disease; G40.909 Epilepsy, unspecified, not intractable, without status epilepticus; Z87.820 Personal history of traumatic brain injury; D63.1 Anemia in chronic kidney disease; Z66 Do not resuscitate; J44.9 Chronic obstructive pulmonary disease, unspecified
CPT/HCPCS: 36415; 71045; 80048; 80053; 81001; 82248; 82270; 82378; 82550; 82607; 82746; 83540; 83550; 83605; 83615; 83690; 83735; 83880; 84100; 84133; 84300; 84484; 84550; 85007; 85025; 85044; 85060; 85610; 85651; 85730; 86140; 87040; 87070; 87181; 87205; 89050; 93005; 94660; 94664; 96361; 96365; 96368; 99285; J7030